=== PATIENT | male | born 1960 | race Caucasian/White ===

== ENCOUNTER 2017-07-08 11:55 | Outpatient (CLI) | payer MEDICAID ==
[~2017-07-08 11:55] MED LIST: BACTRIM DS 8001 TA1 PO; DAPTOMYCIN500 MG IV; LEVAQUIN 750 M750 MG PO; MEDROL 4MG. DOSE4 MG PO; NORCO 325 MG-51 TAB PO; TESSALON PERLE200 MG PO; TRAMADOL 50MG T50 MG PO
[2017-07-08] MEDS ORDERED: NOMEDS XX (13:20)
== END 2017-07-08 12:35 | disposition home or self-care (01) ==
LOC: COP 11:55
DX: L02.416 Cutaneous abscess of left lower limb (principal)
CPT/HCPCS: G0463

== ENCOUNTER 2017-07-15 07:05 | Inpatient (IN) | payer MEDICAID ==
[~2017-07-15] VITALS: Ht 175.3 cm; Wt 81.6 kg
[~2017-07-15 07:05] MED LIST changes: +NOMEDS XX
[2017-07-15 07:16] VITALS: BP 157/99
--- OUTSIDE RECORDS SUMMARY | 2017-07-15 07:24 | External Medical Summary Rpt ---
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 [facility] VIRUS INC INC IAADI 21074 ANA P[facility] INFFLUENZ 3 [facility] A A VIRUS INC INC DRUG SCR G0434 DEWE[facility] HAM DEWEY HAM NOT 2 CHROMATOG RAPHIC; ANY NUMBER PT ENC DRUG SCR G0434 DEWEY HAM DEWEY HAM NOT 2 CHROMATOG RAPHIC; ANY NUMBER PT ENC RADEX 91120 [place] JIN HAND 2 MEDICAL EVA MINIMUM 3 SERV VIEWS FOUNDATIO RADEX 55605 [place] IJN WRIST 2 MEDICAL EVA COMPLETE SERV MINIMUM 3 FOUNDATIO VIEWS INJECTION J3301 [place] SCO 2 MEDICAL TRIAMCINO SERV LONE FOUNDATIO ACETONIDE NOS 10 MG RADIOLOGI 31049 [facility] C EXAM 2 [facility] COMPL MINIMUM 3 VIEWS RADEX 76655 [facility] ANKLE 2 Y Y COMPLETE HOSPITAL HOSPITAL MINIMUM 3 VIEWS MANUAL 44083 [place] THERAPY 2 TQS 1/> CHIROPRAC CHIROPRAC REGIONS TIC CENTE TIC CENTE EACH 15 MINUTES CHIROPRAC 00705 [place] TIC 2 MANIPULAT CHIROPRAC CHIROPRAC BEATRIZ TX TIC CENTE TIC CENTE SPINAL 3-4 REGIONS APPL 29217 [place] MODALITY 2 1/> AREAS CHIROPRAC CHIROPRAC TRACTION TIC CENTE TIC CENTE MECHANICA L APPL 50989 [place] MODALITY 2 1/> AREAS CHIROPRAC CHIROPRAC ELEC TIC CENTE TIC CENTE STIMJ UNATTENDE D THERAPEUT 07639 [place] IC PX 1/> 2 AREAS CHIROPRAC CHIROPRAC EACH 15 TIC CENTE TIC CENTE MIN EXERCISES THERAPEUT 72928 [place] IC PX 1/> 2 AREAS CHIROPRAC CHIROPRAC EACH 15 TIC CENTE TIC CENTE MIN EXERCISES APPL 89946 [place] MODALITY 2 1/> AREAS CHIROPRAC CHIROPRAC ELEC TIC CENTE TIC CENTE STIMJ UNATTENDE D CHIROPRAC 96178 [place] TIC 2 MANIPULAT CHIROPRAC CHIROPRAC BEATRIZ TX TIC CENTE TIC CENTE SPINAL 1-2 REGIONS APPL 08777 [place] MODALITY 2 1/> AREAS CHIROPRAC CHIROPRAC TRACTION TIC CENTE TIC CENTE MECHANICA L APPL 45083 [place] MODALITY 2 1/> AREAS CHIROPRAC CHIROPRAC TRACTION TIC CENTE TIC CENTE MECHANICA L CHIROPRAC 18579 [place] TIC 2 MANIPULAT CHIROPRAC CHIROPRAC BEATRIZ TX TIC CENTE TIC CENTE SPINAL 1-2 REGIONS CHIROPRAC 73746 [place] TIC 2 MANIPLTV CHIROPRAC CHIROPRAC TX TIC CENTE TIC CENTE EXTRASPIN AL 1/> REGION APPL 74489 [place] MODALITY 2 1/> AREAS CHIROPRAC CHIROPRAC ELEC TIC CENTE TIC CENTE STIMJ UNATTENDE D THERAPEUT 37811 [place] IC PX 1/> 2 AREAS CHIROPRAC CHIROPRAC EACH 15 TIC CENTE TIC CENTE MIN EXERCISES INJECTION [id number] [place] SCO 2 MEDICAL TRIAMCINO SERV LONE FOUNDATIO ACETONIDE NOS 10 MG ARTHROCEN 24134 DAVE DORSEYIS 2 MEDICAL ASPIR&/IN SERV J INTERM FOUNDATIO JT/BURS W/O US APPL 89354 [place] MODALITY 2 1/> AREAS CHIROPRAC CHIROPRAC TRACTION TIC CENTE TIC CENTE MECHANICA L APPL 92280 [place] MODALITY 2 1/> AREAS CHIROPRAC CHIROPRAC ELEC TIC CENTE TIC CENTE STIMJ UNATTENDE D CHIROPRAC 19387 [place] TIC 2 MANIPLTV CHIROPRAC CHIROPRAC TX TIC CENTE TIC CENTE EXTRASPIN AL 1/> REGION CHIROPRAC 13637 [place] TIC 2 MANIPULAT CHIROPRAC CHIROPRAC BEATRIZ TX TIC CENTE TIC CENTE SPINAL 1-2 REGIONS THERAPEUT 63043 [place] IC PX 1/> 2 AREAS CHIROPRAC CHIROPRAC EACH 15 [place] [address] [place] 1/> AREAS 2 EACH 15 CHIROPRAC CHIROPRAC MIN TIC CENTE TIC CENTE NEUROMUSC REEDUCA THERAPEUT 91154 [place] IC PX 1/> 2 AREAS CHIROPRAC CHIROPRAC EACH 15 TIC CENTE TIC CENTE MIN EXERCISES CHIROPRAC 20369 [place] TIC 2 MANIPLTV CHIROPRAC CHIROPRAC TX TIC CENTE TIC CENTE EXTRASPIN AL 1/> REGION APPL 22088 [place] MODALITY 2 1/> AREAS CHIROPRAC CHIROPRAC ELEC TIC CENTE TIC CENTE STIMJ UNATTENDE D APPL 49362 [place] MODALITY 2 1/> AREAS CHIROPRAC CHIROPRAC TRACTION TIC CENTE TIC CENTE MECHANICA L CHIROPRAC 21178 [place] TIC 2 MANIPULAT CHIROPRAC CHIROPRAC BEATRIZ TX TIC CENTE TIC CENTE SPINAL 3-4 REGIONS APPLICATI 11690 [place] ON 2 MODALITY CHIROPRAC CHIROPRAC 1/> AREAS TIC CENTE TIC CENTE HOT/COLD PACKS APPLICATI 55475 [place] BROWNLE[place] ON 2 MODALITY CHIROPRAC CHIROPRAC 1/> AREAS TIC CENTE TIC CENTE HOT/COLD PACKS CHIROPRAC 80990 [place] TIC 2 MANIPULAT CHIROPRAC CHIROPRAC BEATRIZ TX TIC CENTE TIC CENTE SPINAL 3-4 REGIONS APPL 58838 [place] MODALITY 2 1/> AREAS CHIROPRAC CHIROPRAC TRACTION TIC CENTE TIC CENTE MECHANICA L APPL 49646 [place] MODALITY 2 1/> AREAS CHIROPRAC CHIROPRAC ELEC TIC CENTE TIC CENTE STIMJ UNATTENDE D CHIROPRAC 32218 [place] TIC 2 MANIPLTV CHIROPRAC CHIROPRAC TX TIC CENTE TIC CENTE EXTRASPIN AL 1/> REGION THERAPEUT 67765 [place] IC PX 1/> 2 AREAS CHIROPRAC CHIROPRAC EACH 15 TIC CENTE TIC CENTE MIN EXERCISES THERAPEUT 03222 [place] CHERRY DYLON IC PX 1/> 2 AREAS CHIROPRAC EACH 15 TIC CENTE MIN EXERCISES APPL 95076 [place] CHERRY DYLON MODALITY 2 1/> AREAS CHIROPRAC ELEC TIC CENTE STIMJ UNATTENDE D CHIROPRAC 43710 [place] CHERRY DYLON TIC 2 MANIPLTV CHIROPRAC TX TIC CENTE EXTRASPIN AL 1/> REGION APPL 99178 [place] CHERRY DYLON MODALITY 2 1/> AREAS CHIROPRAC TRACTION TIC CENTE MECHANICA L CHIROPRAC 97475 [place] CHERRY DYLON TIC 2 MANIPULAT CHIROPRAC BEATRIZ TX TIC CENTE SPINAL 3-4 REGIONS ARTHROCEN 40183 DAVE DORSEYIS 2 MEDICAL ASPIR&/IN SERV J INTERM FOUNDATIO JT/BURS N W/O US APPL 57655 ANA PEREZ MODALITY 2 [facility] 1/> AREAS INC INC IONTOPHOR ESIS EA 15 MIN THERAPEUT 70665 ANA PEREZ IC PX 1/> 2 [facility] AREAS INC INC EACH 15 MIN EXERCISES THERAPEUT 12136 ANA PEREZ IC PX 1/> 2 [facility] AREAS INC INC EACH 15 MIN EXERCISES APPL 55223 ANA PEREZ MODALITY 2 [facility] 1/> AREAS INC INC IONTOPHOR ESIS EA 15 MIN APPL 31420 ANA PEREZ MODALITY 2 [facility]OS[facility] 1/> AREAS INC INC IONTOPHOR ESIS EA 15 MIN THERAPEUT 20828 ANA PEREZ IC PX 1/> 2 [facility]OS[facility]OS[facility] AREAS INC INC EACH 15 MIN EXERCISES APPL 23140 ANA PEREZ MODALITY 2 [facility] 1/> AREAS INC INC ULTRASOUN D EA 15 MIN PHYSICAL 93960 ANA PEREZ THERAPY 2 [facility]OS[facility] EVALUATIO INC INC N APPLICATI 32280 NALLELY COLÓN ON 1 KHOA MODALITY CHIROPRAC 1/> AREAS TIC CENTE HOT/COLD PACKS CHIROPRAC 92184 NALLELY COLÓN TIC 1 KHOA MANIPULAT CHIROPRAC BEATRIZ TX TIC CENTE SPINAL 3-4 REGIONS APPL 99954 [place] KATARZY[place] MODALITY 1 KHOA 1/> AREAS CHIROPRAC TRACTION TIC CENTE MECHANICA L CHIROPRAC 14680 NALLELY COLÓN TIC 1 KHOA MANIPLTV CHIROPRAC TX TIC CENTE EXTRASPIN AL > REGION APPL 63917 NALLELY COLÓN MODALITY 1 KHOA 1/> AREAS CHIROPRAC ELEC TIC CENTE STIMJ UNATTENDE D APPL 51539 [place] KATARZY[place] MODALITY 1 KHOA 1/> AREAS CHIROPRAC ELEC TIC CENTE STIMJ UNATTENDE D CHIROPRAC 57119 [place] COLÓN TIC 1 KHOA MANIPLTV CHIROPRAC TX TIC CENTE EXTRASPIN AL 1> REGION APPL 71998 [place]RI[place] KATARZYNA MODALITY 1 KHOA 1/> AREAS CHIROPRAC TRACTION TIC CENTE MECHANICA L CHIROPRAC 31276 NALLELY COLÓN TIC 1 KHOA MANIPULAT CHIROPRAC BEATRIZ TX TIC CENTE SPINAL 3-4 REGIONS APPLICATI 23621 NALLELY COLÓN ON 1 [place] MODALITY CHIROPRAC 1/> AREAS TIC CENTE HOT/COLD PACKS NEUROPLAS 52419 [place] [facility] TY 1 MEDICAL MAGAN &/TRANSPO SERV S MEDIAN FOUNDATIO NRV CARPAL TUNNE INJECTION [place] CHRISTEL 1 MEDICAL MAGAN THERAPEUT SERV IC CARPAL FOUNDATIO TUNNEL CHIROPRAC 86031 NALLELY COLÓN TIC 1 KHOA MANIPLTV CHIROPRAC TX TIC CENTE EXTRASPIN AL > REGION APPL 50280 NALLELY COLÓN MODALITY 1 KHOA 1/> AREAS CHIROPRAC ELEC TIC CENTE STIMJ UNATTENDE D APPLICATI 02929 NALLELY COLÓN ON 1 [place] MODALITY CHIROPRAC 1/> AREAS TIC CENTE HOT/COLD PACKS CHIROPRAC 48557 NALLELY COLÓN TIC 1 KHOA MANIPULAT CHIROPRAC BEATRIZ TX TIC CENTE SPINAL 3-4 REGIONS APPL 49711 NALLELY COLÓN MODALITY 1 KHOA 1/> AREAS CHIROPRAC TRACTION TIC CENTE MECHANICA L NRV CNDJ 45225 [place] [facility] AMPLT&LAT 1 MEDICAL ENCY EA SERV NRV MOTOR FOUNDATIO W/F-WAVE STD NRV CNDJ 31661 [place] [facility] AMPLITUDE 1 MEDICAL & SERV LATENCY FOUNDATIO EACH NERVE SENSORY NDL EMG 1 53232 [place] [facility] XTR W/WO 1 MEDICAL RELATED SERV PARASPINA FOUNDATIO L AREAS APPLICATI 03718 NALLELY COLÓN ON 1 [place] MODALITY CHIROPRAC 1/> AREAS TIC CENTE HOT/COLD PACKS CHIROPRAC 36230 NALLELY COLÓN TIC 1 [place] MANIPULAT CHIROPRAC BEATRIZ TX TIC CENTE SPINAL 3-4 REGIONS APPL 58064 NALLELY COLÓN MODALITY 1 KHOA 1/> AREAS CHIROPRAC ELEC TIC CENTE STIMJ UNATTENDE D APPL 37788 NALLELY COLÓN MODALITY 1 KHOA 1/> AREAS CHIROPRAC TRACTION TIC CENTE MECHANICA L CHIROPRAC 31467 NALLELY COLÓN TIC 1 KHOA MANIPLTV CHIROPRAC TX TIC CENTE EXTRASPIN AL 1/> REGION APPL 85691 NALLELY COLÓN MODALITY 1 KHOA 1/> AREAS CHIROPRAC ELEC TIC CENTE STIMJ UNATTENDE D CHIROPRAC 41489 NALLELY COLÓN TIC 1 KHOA MANIPLTV CHIROPRAC TX TIC CENTE EXTRASPIN AL 1/> REGION CHIROPRAC 86075 NALLELY COLÓN TIC 1 KHOA MANIPULAT CHIROPRAC BEATRIZ TX TIC CENTE SPINAL 3-4 REGIONS APPL 41062 NALLELY COLÓN MODALITY 1 KHOA 1/> AREAS CHIROPRAC TRACTION TIC CENTE MECHANICA L APPLICATI 49629 NALLELY COLÓN ON 1 [place] MODALITY CHIROPRAC 1/> AREAS TIC CENTE HOT/COLD PACKS MANUAL 29120 NALLELY COLÓN THERAPY 1 KHOA TQS 1/> CHIROPRAC REGIONS TIC CENTE EACH 15 MINUTES ARTHROCEN 72523 [place] DANIEL RAMIREZ TESIS 1 MEDICAL ASPIR&/IN SERV J INTERM FOUNDATIO JT/BURS W/O US INJECTION [id number] [place] DANIEL SCO 1 MEDICAL TRIAMCINO SERV LONE FOUNDATIO ACETONIDE NOS 10 [place] [address] [facility] UPPER 1 Y Y EXTREMITY [facility] W/CONTRAS T MATRL INJECTION 14646 [facility] SHOULDER 1 Y Y [facility] ARTHROG PHY/ CT/MRI ARTHG RADEX 45979 [facility]&I APPLICATI 19082 NALLELY COLÓN ON 1 [place] MODALITY CHIROPRAC 1/> AREAS TIC CENTE HOT/COLD PACKS CHIROPRAC 07351 NALLELY COLÓN TIC 1 KHOA MANIPULAT CHIROPRAC BEATRIZ TX TIC CENTE SPINAL 3-4 REGIONS CHIROPRAC 57621 NALLELY COLÓN TIC 1 KHOA MANIPLTV CHIROPRAC TX TIC CENTE EXTRASPIN AL 1/> REGION APPL 76755 NALLELY COLÓN MODALITY 1 KHOA 1/> AREAS CHIROPRAC TRACTION TIC CENTE MECHANICA L APPL 74578 NALLELY COLÓN MODALITY 1 HKOA 1/> AREAS CHIROPRAC ELEC TIC CENTE STIMJ UNATTENDE D APPL 22488 NALLELY COLÓN MODALITY 1 KHOA 1/> AREAS CHIROPRAC ELEC TIC CENTE STIMJ UNATTENDE D APPL 28717 NALLELY COLÓN MODALITY 1 KHOA 1/> AREAS CHIROPRAC TRACTION TIC CENTE MECHANICA L CHIROPRAC 84812 NALLELY COLÓN TIC 1 KHOA MANIPLTV CHIROPRAC TX TIC CENTE EXTRASPIN AL 1/> REGION CHIROPRAC 46979 NALLELY COLÓN TIC 1 KHOA MANIPULAT CHIROPRAC BEATRIZ TX TIC CENTE SPINAL 3-4 REGIONS APPLICATI 86993 NALLELY COLÓN ON 1 [place] MODALITY CHIROPRAC 1/> AREAS TIC CENTE HOT/COLD PACKS APPLICATI 01854 NALLELY COLÓN ON 1 KHOA MODALITY CHIROPRAC 1/> AREAS TIC CENTE HOT/COLD PACKS CHIROPRAC 83149 NALLELY COLÓN TIC 1 KHOA MANIPULAT CHIROPRAC BEATRIZ TX TIC CENTE SPINAL 3-4 REGIONS CHIROPRAC 56921 NALLELY COLÓN TIC 1 KHOA MANIPLTV CHIROPRAC TX TIC CENTE EXTRASPIN AL 1/> REGION APPL 40435 NALLELY COLÓN MODALITY 1 KHOA 1/> AREAS CHIROPRAC TRACTION TIC CENTE MECHANICA L APPL 02364 NALLELY COLÓN MODALITY 1 KHOA 1/> AREAS CHIROPRAC ELEC TIC CENTE STIMJ UNATTENDE D APPL 53609 NALLELY COLÓN MODALITY 1 KHOA 1/> AREAS CHIROPRAC ELEC TIC CENTE STIMJ UNATTENDE D APPL 92690 NALLELY COLÓN MODALITY 1 KHOA 1/> AREAS CHIROPRAC TRACTION TIC CENTE MECHANICA L CHIROPRAC 79149 NALLELY COLÓN TIC 1 KHOA MANIPLTV CHIROPRAC TX TIC CENTE EXTRASPIN AL 1/> REGION CHIROPRAC 32436 NALLELY COLÓN TIC 1 KHOA MANIPULAT CHIROPRAC BEATRIZ TX TIC CENTE SPINAL 3-4 REGIONS APPLICATI 88579 NALLELY COLÓN ON 1 KHOA MODALITY CHIROPRAC 1/> AREAS TIC CENTE HOT/COLD PACKS RADEX 91959 [place] [facility] ANKLE 1 MEDICAL GERSON COMPLETE SERV MINIMUM 3 FOUNDATIO VIEWS RADIOLOGI 19061 [place] [facility] C 1 MEDICAL GERSON EXAMINATI SERV ON PELVIS FOUNDATIO 1/2 VIEWS CHIROPRAC 37293 NALLELY COLÓN TIC 1 KHOA MANIPLTV CHIROPRAC TX TIC CENTE EXTRASPIN AL 1/> REGION APPL 72482 NALLELY COLÓN MODALITY 1 KHOA 1/> AREAS CHIROPRAC TRACTION TIC CENTE MECHANICA L APPL 57664 NALLELY COLÓN MODALITY 1 KHOA 1/> AREAS CHIROPRAC ELEC TIC CENTE STIMJ UNATTENDE D APPLICATI 07728 NALLELY COLÓN ON 1 KHOA MODALITY CHIROPRAC 1/> AREAS TIC CENTE HOT/COLD PACKS CHIROPRAC 23387 NALLELY COLÓN TIC 1 KHOA MANIPULAT CHIROPRAC BEATRIZ TX TIC CENTE SPINAL 3-[place] [address] FARRAR FARRAR LIP 1 LUIS MANUEL LUIS MANUEL CHIROPRAC 08649 NALLELY COLÓN TIC 1 [place] MANIPULAT CHIROPRAC BEATRIZ TX TIC CENTE SPINAL 3-4 REGIONS APPL 23962 NALLELY BROWNING MODALITY 1 1/> AREAS CHIROPRAC CHIROPRAC TRACTION TIC CENTE TIC CENTE MECHANICA L APPL 37740 NALLELY COLÓN MODALITY 1 KHOA 1/> AREAS CHIROPRAC ELEC TIC CENTE STIMJ UNATTENDE D CHIROPRAC 07488 NALLELY COLÓN TIC 1 KHOA MANIPLTV CHIROPRAC TX TIC CENTE EXTRASPIN AL 1/> REGION CHIROPRAC 66269 NALLELY COLÓN TIC 1 KHOA MANIPLTV CHIROPRAC TX TIC CENTE EXTRASPIN AL 1/> REGION APPL 81961 NALLELY COLÓN MODALITY 1 KHOA 1/> AREAS CHIROPRAC ELEC TIC CENTE STIMJ UNATTENDE D APPL 22893 NALLELY COLÓN MODALITY 1 KHOA 1/> AREAS CHIROPRAC TRACTION TIC CENTE MECHANICA L CHIROPRAC 53703 NALLELY COLÓN TIC 1 KHOA MANIPULAT CHIROPRAC BEATRIZ TX TIC CENTE SPINAL 3-4 REGIONS APPLICATI 48252 NALLELY COLÓN ON 1 KHOA MODALITY CHIROPRAC 1/> AREAS TIC CENTE HOT/COLD PACKS APPLICATI 70231 NALLELY COLÓN ON 1 KHOA MODALITY CHIROPRAC 1/> AREAS TIC CENTE HOT/COLD PACKS CHIROPRAC 59105 NALLELY COLÓN TIC 1 KHOA MANIPULAT CHIROPRAC BEATRIZ TX TIC CENTE SPINAL 3-4 REGIONS APPL 26508 NALLELY COLÓN MODALITY 1 KHOA 1/> AREAS CHIROPRAC TRACTION TIC CENTE MECHANICA L CHIROPRAC 35924 NALLELY COLÓN TIC 1 KHOA MANIPLTV CHIROPRAC TX TIC CENTE EXTRASPIN AL 1/> REGION APPL 46177 NALLELY COLÓN MODALITY 1 KHOA 1/> AREAS CHIROPRAC ELEC TIC CENTE STIMJ UNATTENDE D CHIROPRAC 39488 NALLELY COLÓN TIC 1 KHOA MANIPLTV CHIROPRAC TX TIC CENTE EXTRASPIN AL 1/> REGION APPL 60343 NALLELY COLÓN MODALITY 1 KHOA 1/> AREAS CHIROPRAC ELEC TIC CENTE STIMJ UNATTENDE D APPL 52028 NALLELY COLÓN MODALITY 1 KHOA 1/> AREAS CHIROPRAC TRACTION TIC CENTE MECHANICA L CHIROPRAC 39815 NALLELY COLÓN TIC 1 KHOA MANIPULAT CHIROPRAC BEATRIZ TX TIC CENTE SPINAL 3-4 REGIONS APPLICATI 60339 NALLELY COLÓN ON 1 KHOA MODALITY CHIROPRAC 1/> AREAS TIC CENTE HOT/COLD PACKS APPLICATI 15640 NALLELY COLÓN ON 1 KHOA MODALITY CHIROPRAC 1/> AREAS TIC CENTE HOT/COLD PACKS CHIROPRAC 45636 NALLELY COLÓN TIC 1 KHOA MANIPULAT CHIROPRAC BEATRIZ TX TIC CENTE SPINAL 3-4 REGIONS APPL 90261 NALLELY COLÓN MODALITY 1 KHOA 1/> AREAS CHIROPRAC TRACTION TIC CENTE MECHANICA L APPL 74759 NALLELY COLÓN MODALITY 1 KHOA 1/> AREAS CHIROPRAC ELEC TIC CENTE STIMJ UNATTENDE D CHIROPRAC 86200 NALLELY COLÓN TIC 1 KHOA MANIPLTV CHIROPRAC TX TIC CENTE EXTRASPIN AL 1/> REGION CHIROPRAC 45155 NALLELY COLÓN TIC 1 KHOA MANIPLTV CHIROPRAC TX TIC CENTE EXTRASPIN AL 1/> REGION APPL 28014 NALLELY COLÓN MODALITY 1 KHOA 1/> AREAS CHIROPRAC TRACTION TIC CENTE MECHANICA L APPL 72159 NALLELY COLÓN MODALITY 1 KHOA 1/> AREAS CHIROPRAC ELEC TIC CENTE STIMJ UNATTENDE D CHIROPRAC 42409 NALLELY COLÓN TIC 1 KHOA MANIPULAT CHIROPRAC BEATRIZ TX TIC CENTE SPINAL 3-4 REGIONS APPLICATI 94391 NALLELY COLÓN ON 1 KHOA MODALITY CHIROPRAC 1/> AREAS TIC CENTE HOT/COLD PACKS APPLICATI 90494 NALLELY COLÓN ON 1 KHOA MODALITY CHIROPRAC 1/> AREAS TIC CENTE HOT/COLD PACKS APPL 98571 NALLELY COLÓN MODALITY 1 KHOA 1/> AREAS CHIROPRAC TRACTION TIC CENTE MECHANICA L CHIROPRAC 12384 NALLELY COLÓN TIC 1 KHOA MANIPULAT CHIROPRAC BEATRIZ TX TIC CENTE SPINAL 3-4 REGIONS CHIROPRAC 42355 NALLELY COLÓN TIC 1 KHOA MANIPLTV CHIROPRAC TX TIC CENTE EXTRASPIN AL 1/> REGION APPL 22786 NALLELY COLÓN MODALITY 1 KHOA 1/> AREAS CHIROPRAC ELEC TIC CENTE STIMJ UNATTENDE D CHIROPRAC 28482 NALLELY COLÓN TIC 1 KHOA MANIPLTV CHIROPRAC TX TIC CENTE EXTRASPIN AL 1/> REGION APPL 75013 NALLELY COLÓN MODALITY 1 KHOA 1/> AREAS CHIROPRAC ELEC TIC CENTE STIMJ UNATTENDE D APPL 06316 NALLELY COLÓN MODALITY 1 KHOA 1/> AREAS CHIROPRAC TRACTION TIC CENTE MECHANICA L CHIROPRAC 16373 NALLELY COLÓN TIC 1 KHOA MANIPULAT CHIROPRAC BEATRIZ TX TIC CENTE SPINAL 3-4 REGIONS APPLICATI 99224 NALLELY COLÓN ON 1 KHOA MODALITY CHIROPRAC 1/> AREAS TIC CENTE HOT/COLD PACKS APPLICATI 99106 NALLELY COLÓN ON 1 KHOA MODALITY CHIROPRAC 1/> AREAS TIC CENTE HOT/COLD PACKS APPL 25353 NALLELY COLÓN MODALITY 1 KHOA 1/> AREAS CHIROPRAC TRACTION TIC CENTE MECHANICA L CHIROPRAC 62945 NALLELY COLÓN TIC 1 KHOA MANIPULAT CHIROPRAC BEATRIZ TX TIC CENTE SPINAL 3-4 REGIONS APPL 50963 NALLELY COLÓN MODALITY 1 KHOA 1/> AREAS CHIROPRAC ELEC TIC CENTE STIMJ UNATTENDE D CHIROPRAC 43028 NALLELY COLÓN TIC 1 KHOA MANIPLTV CHIROPRAC TX TIC CENTE EXTRASPIN AL 1/> REGION CHIROPRAC 43114 NALLELY COLÓN TIC 1 KHOA MANIPLTV CHIROPRAC TX TIC CENTE EXTRASPIN AL 1/> REGION APPL 82080 NALLELY BROWNING MODALITY 1 1/> AREAS CHIROPRAC CHIROPRAC ELEC TIC CENTE TIC CENTE STIMJ UNATTENDE D CHIROPRAC 59664 NALLELY COLÓN TIC 1 KHOA MANIPULAT CHIROPRAC BEATRIZ TX TIC CENTE SPINAL 3-4 REGIONS APPLICATI 88406 NALLELY COLÓN ON 1 KHOA MODALITY CHIROPRAC 1/> AREAS TIC CENTE HOT/COLD PACKS APPLICATI 64075 NALLELY COLÓN ON 1 KHOA MODALITY CHIROPRAC 1/> AREAS TIC CENTE HOT/COLD PACKS CHIROPRAC 67915 NALLELY COLÓN TIC 1 KHOA MANIPULAT CHIROPRAC BEATRIZ TX TIC CENTE SPINAL 3-4 REGIONS APPL 88025 NALLELY COLÓN MODALITY 1 KHOA 1/> AREAS CHIROPRAC TRACTION TIC CENTE MECHANICA L APPL 40512 NALLELY COLÓN MODALITY 1 KHOA 1/> AREAS CHIROPRAC ELEC TIC CENTE STIMJ UNATTENDE D CHIROPRAC 60113 NALLELY COLÓN TIC 1 KHOA MANIPLTV CHIROPRAC TX TIC CENTE EXTRASPIN AL 1/> REGION CHIROPRAC 48856 NALLELY COLÓN TIC 1 KHOA MANIPLTV CHIROPRAC TX TIC CENTE EXTRASPIN AL 1/> REGION APPL 88243 NALLELY COLÓN MODALITY 1 KHOA 1/> AREAS CHIROPRAC ELEC TIC CENTE STIMJ UNATTENDE D APPL 61487 NALLELY COLÓN MODALITY 1 KHOA 1/> AREAS CHIROPRAC TRACTION TIC CENTE MECHANICA L CHIROPRAC 72879 NALLELY COLÓN TIC 1 KHOA MANIPULAT CHIROPRAC BEATRIZ TX TIC CENTE SPINAL 3-4 REGIONS APPLICATI 59679 NALLELY COLÓN ON 1 KHOA MODALITY CHIROPRAC 1/> AREAS TIC CENTE HOT/COLD PACKS CHIROPRAC 36120 NALLELY COLÓN TIC 1 KHOA MANIPULAT CHIROPRAC BEATRIZ TX TIC CENTE SPINAL 3-4 REGIONS APPL 37057 NALLELY BROWNING MODALITY 1 1/> AREAS CHIROPRAC CHIROPRAC TRACTION TIC CENTE TIC CENTE MECHANICA L APPL 25404 NALLELY COLÓN MODALITY 1 KHOA 1/> AREAS CHIROPRAC ELEC TIC CENTE STIMJ UNATTENDE D CHIROPRAC 32048 NALLELY COLÓN TIC 1 KHOA MANIPLTV CHIROPRAC TX TIC CENTE EXTRASPIN AL 1/> REGION CHIROPRAC 73067 NALLELY COLÓN TIC 1 KHOA MANIPLTV CHIROPRAC TX TIC CENTE EXTRASPIN AL 1/> REGION APPL 64721 NALLELY COLÓN MODALITY 1 KHOA 1/> AREAS CHIROPRAC ELEC TIC CENTE STIMJ UNATTENDE D APPL 34215 NALLELY COLÓN MODALITY 1 KHOA 1/> AREAS CHIROPRAC TRACTION TIC CENTE MECHANICA L CHIROPRAC 50465 NALLELY COLÓN TIC 1 KHOA MANIPULAT CHIROPRAC BEATRIZ TX TIC CENTE SPINAL 3-4 REGIONS APPLICATI 97447 NALLELY COLÓN ON 1 KHOA MODALITY CHIROPRAC 1/> AREAS TIC CENTE HOT/COLD PACKS APPLICATI 20812 NALLELY COLÓN ON 1 KHOA MODALITY CHIROPRAC 1/> AREAS TIC CENTE HOT/COLD PACKS CHIROPRAC 45590 NALLELY COLÓN TIC 1 KHOA MANIPULAT CHIROPRAC BEATRIZ TX TIC CENTE SPINAL 3-4 REGIONS APPL 18408 NALLELY COLÓN MODALITY 1 KHOA 1/> AREAS CHIROPRAC TRACTION TIC CENTE MECHANICA L APPL 34740 NALLELY COLÓN MODALITY 1 KHOA 1/> AREAS CHIROPRAC ELEC TIC CENTE STIMJ UNATTENDE D CHIROPRAC 88480 NALLELY COLÓN TIC 1 KHOA MANIPLTV CHIROPRAC TX TIC CENTE EXTRASPIN AL 1/> REGION RADEX 27717 NALLELY COLÓN SPINE 1 KHOA LUMBOSACR CHIROPRAC AL 2/3 TIC CENTE VIEWS THERAPEUT 26151 ANA PEREZ IC PX 1/> 1 [facility] EACH 15 MIN EXERCISES THERAPEUT 52680 ANA FUENTESON IC PX 1/> 1 [facility] INC EACH 15 MIN EXERCISES THERAPEUT 27614 ANA FUENTESON IC PX 1/> 1 [facility] INC EACH 15 MIN EXERCISES THERAPEUT 65656 NAA FUENTESON IC PX 1/> 1 [facility] INC EACH 15 MIN EXERCISES PHYSICAL 99294 ANA PEREZ THERAPY 1 [facility] EVALUATIO INC INC N RADEX 72299 [place] [facility] WRIST 0 MEDICAL GERSON COMPLETE SERV MINIMUM 3 FOUNDATIO VIEWS RADIOLOGI 91879 [place] [facility] C EXAM 0 MEDICAL GERSON PELVIS SERV COMPL FOUNDATIO MINIMUM 3 VIEWS RADEX 37527 [place] [facility] ANKLE 0 MEDICAL GERSON COMPLETE SERV MINIMUM 3 FOUNDATIO VIEWS STANDARD K0001 [facility] WHEELCHAI 0 HOME HOME R CARE, INC CARE, INC MNL E0971 [facility]MI[facility] WHEELCHAI 0 HOME HOME R CARE, INC CARE, INC ACCESSORY ANTI-TIPP ING DEVC EACH MANUAL E0961 [facility] WHEELCHAI 0 HOME HOME R ACCESS CARE, INC CARE, INC WHEEL LOCK BRAKE EXT EA RADEX 08277 [facility] MINIMUM 3 VIEWS RADIOLOGI 77509 [facility] COMPL MINIMUM 3 VIEWS RADEX 45829 [facility] HOSPITAL MINIMUM 3 VIEWS STANDARD K0001 [facility] PREMIER WHEELCHAI 0 HOME HOME R CARE, INC CARE, INC MNL E0971 PREMIER PREMIER WHEELCHAI 0 HOME HOME R CARE, INC CARE, INC ACCESSORY ANTI-TIPP ING DEVC EACH MANUAL E0961 [facility] PREMIER WHEELCHAI 0 HOME HOME R ACCESS CARE, INC CARE, INC WHEEL LOCK BRAKE EXT EA RADEX 86713 [place] WRIST 0 MEDICAL GERSON COMPLETE SERV MINIMUM 3 FOUNDATIO VIEWS RADIOLOGI 23009 [place] C EXAM 0 MEDICAL GERSON PELVIS SERV COMPL FOUNDATIO MINIMUM 3 VIEWS N-INVAS 89338 [place] AYOOB AND PHYSIOLOG 0 MEDICAL IC STD SERV XTR VEINS FOUNDATIO COMPL BI STD DUP-SCAN 56911 [facility] XTR VEINS 0 Y Y [facility] L/LIMITED STUDY MNL E0971 PREMIER PREMIER WHEELCHAI 0 HOME HOME R CARE, INC CARE, INC ACCESSORY ANTI-TIPP ING DEVC EACH MANUAL E0961 PREMIER PREMIER WHEELCHAI 0 HOME HOME R ACCESS CARE, INC CARE, INC WHEEL LOCK BRAKE EXT EA STANDARD K0001 PREMIER PREMIER WHEELCHAI 0 HOME HOME R CARE, INC CARE, INC [place] [facility] [address] [place] [facility] DISCHARGE 0 MEDICAL GINGER DAY SERV MANAGEMEN FOUNDATIO T 30 MIN/< SBSQ 02875 [place] [address] MEDICAL NAN CARE/DAY SERV 25 FOUNDATIO MINUTES SBSQ 78882 [facility] 0 MEDICAL R MINDI CARE/DAY SERV 25 FOUNDATIO MINUTES DUP-SCAN 03066 ALPHONSO ALPHONSO XTR VEINS 0 KESHAWN KESHAWN COMPLETE BILATERAL STUDY SBSQ 76920 [facility] 0 MEDICAL R MINDI CARE/DAY SERV 25 FOUNDATIO MINUTES SBSQ 00567 [facility] 0 MEDICAL R MINDI CARE/DAY SERV 25 FOUNDATIO MINUTES RADEX 11954 [place] SH[facility] 0 MEDICAL JT 1 VIEW SERV FOUNDATIO SBSQ 88846 [facility] 0 MEDICAL R MINDI CARE/DAY SERV 25 FOUNDATIO MINUTES SBSQ 10154 [facility] 0 MEDICAL NAN CARE/DAY SERV 25 FOUNDATIO MINUTES SBSQ 26671 [facility] 0 MEDICAL NAN CARE/DAY SERV 25 FOUNDATIO MINUTES INITIAL 69061 [facility] 0 MEDICAL R MINDI CARE/DAY SERV 50 FOUNDATIO MINUTES GROUND [id number] MERCURYAM MERCURYAM MILEAGE 0 BULAN CE BULAN CE PER [facility] 11651 [place] [facility] 0 MEDICAL SAURAV DAY SERV MANAGEMEN FOUNDATIO T 30 MIN/< SBSQ [id number] [place] [facility] 0 MEDICAL SAURAV CARE/DAY SERV 15 FOUNDATIO MINUTES RADEX 99905 [place] [facility] 0 MEDICAL COMPLETE SERV MINIMUM 3 FOUNDATIO VIEWS SBSQ 91626 [facility] 0 MEDICAL SAURAV CARE/DAY SERV 15 FOUNDATIO MINUTES RADEX 25622 [place] [facility] WRIST 2 0 MEDICAL GERSON VIEWS SERV FOUNDATIO SBSQ 95606 [place] [facility] 0 MEDICAL SAURAV CARE/DAY SERV 15 FOUNDATIO MINUTES SBSQ 54922 [facility] 0 MEDICAL SAURAV CARE/DAY SERV 15 FOUNDATIO MINUTES RADEX 61514 [place] [facility] 0 MEDICAL COMPLETE SERV MINIMUM 2 FOUNDATIO VIEWS PERQ 36392 [place] [facility] SKELETAL 0 MEDICAL RAY FIXATION SERV PST FOUNDATIO PELVIC BONE FX&/DIS RADIOLOGI 85395 [place] [facility] SHORT C EXAM 0 MEDICAL PELVIS SERV COMPL FOUNDATIO MINIMUM 3 VIEWS ANESTHESI 83215 [place] JING A ON BONY 0 MEDICAL EUGEN E PELVIS SERV [place]OUNDATIO [place] PELVIS [address] [place] SHORT W/O 0 MEDICAL CONTRAST SERV MATERIAL FOUNDATIO OPTX ANT 69505 [place] PELVIC 0 [place] BONE SERV FX&/DISLC FOUNDATIO INT FIXJ IF PFR RADEX 69022 [place] SHORT SHOULDER 0 MEDICAL COMPLETE SERV MINIMUM 2 [place] VIEWS INITIAL 21988 [place] INPATIENT 0 MEDICAL LIZBETH CONSULT SERV NEW/ESTAB FOUNDATIO PT 20 MIN INITIAL 06326 [place] [facility] 0 MEDICAL CLARKE CARE/DAY SERV [place] [address] [place] DISTAL 0 MED[place]AY FIBULAR SERV FRACTURE FOUNDATIO LAT MALLEOLUS DBRDMT 06395 [place] FX&/DISLC 0 MEDICAL RAY SUBQ SERV T/M/F FOUNDATIO BONE ANES OPEN 15532 [place] PROC 0 MEDICAL PAUL BONES SERVICES LOWER LEG/ANKLE /FOOT [place]OS NJX 05351 [place] RETROGRAD 0 MEDICAL GERSON [place] [address] [place] ABDOMEN 0 MEDICAL BEBA W/CONTRAS SERV T FOUNDATIO MATERIAL URETHROCY 89359 [place] STOGRAPHY 0 MEDICAL GERSON SERV RETROGRAD FOUNDATIO E RS&I ECG 49434 [place] JORI C ROUTINE 0 MEDICAL ECG SERV W/LEAST FOUNDATIO 12 LDS I&R ONLY CT PELVIS 30332 [place] W/O & 0 MEDICAL BEBA W/CONTRAS SERV T FOUNDATIO MATERIAL RADIOLOGI 93976 [place] C 0 MEDICAL GERSON EXAMINATI SERV ON TIBIA FOUNDATIO & FIBULA 2 VIEWS RADEX 23610 [place] SHOULDER 0 MEDICAL GERSON COMPLETE SERV MINIMUM [address] LUMBAR 96555 [place] MUSE SPINE 0 MEDICAL DYLON W/O SERV CONTRAST FOUNDATIO MATERIAL RADIOLOGI 94498 [place] C 0 MEDICAL GERSON EXAMINATI SERV ON PELVIS FOUNDATIO 1/[address] [place] [address] [place] MUSE CERVICAL 0 MEDICAL DYLON SPINE W/O SERV CONTRAST [facility]OUNDATIO MATERIAL RADIOLOGI 17886 [place] C EXAM 0 MEDICAL GERSON PELVIS SERV COMPL FOUNDATIO MINIMUM 3 VIEWS RADIOLOGI 26573 [place] C 0 MEDICAL GERSON EXAMINATI SERV ON [place] [address] [place] MUSE THORACIC 0 MEDICAL DYLON SPINE W/O SERV CONTRAST FOUNDATIO MATERIAL RADEX 76639 [place] TRENT JAM ANKLE 0 MEDICAL COMPLETE SERV MINIMUM 3 [place]OUNDATIO VIEWS RADEX 22453 [place] FOOT 0 MEDICAL GERSON COMPLETE SERV MINIMUM 3 FOUNDATIO VIEWS AMB [id number] PETROLEUM PETROLEUM SERVICE 0 CONVNTION HELICOPTE HELICOPTE AIR SRVC RS INC RS INC TRANSPORT [address] Encounters Encounter Start End Date Code Location Performer Type Date OFFICE 03465 [place] OUTPATIEN 7 7 MEDICAL T VISIT SERV 15 FOUNDATIO MINUTES N OFFICE 48641 [place] OUTPAT[place] 6 6 MEDICAL T VISIT SERV 15 FOUNDATIO MINUTES N OFFICE 77754 [place] SCO OUTPATIEN 6 6 MEDICAL T VISIT SERV 15 FOUNDATIO MINUTES N OFFICE 56998 [place] SCO OUTPATIEN 6 6 MEDICAL T VISIT SERV 25 FOUNDATIO MINUTES N OFFICE 75143 [place] DANI[place] SCO OUTPATIEN 6 6 MEDICAL T VISIT SERV 15 FOUNDATIO MINUTES [facility] ANA - 6 6 MEM [facility] ANA - 6 6 [facility] ANA - 6 6 [facility] UNIVERSIT - 5 5 Y [facility] T OFFICE 76448 UNIVERSIT [facility] 5 5 Y T VISIT 5 [facility] UN[facility] - 5 5 Y [facility] T OFFICE 64177 SUNNI MOELLER [facility] [place] 5 5 NANCY NANCY T VISIT 15 [facility] OFFICE 96975 DAVE DANIEL SCO OUTPATIEN 5 5 MEDICAL T VISIT SERV 25 FOUNDATIO MINUTES N OFFICE 21828 [place] OUTPATIEN 5 5 MEDICAL T VISIT SERV 15 FOUNDATIO MINUTES N OFFICE 20974 DAVE DANIEL SCO OUTPATIEN 5 5 MEDICAL T VISIT SERV 25 FOUNDATIO MINUTES HOSPITAL UN[facility]ERSIT - 5 5 Y [facility] T OFFICE 62279 DAVE RAMIREZ OUTPATIEN 5 5 MEDICAL T VISIT SERV 15 FOUNDATIO MINUTES N OFFICE 45127 DAVE DANIEL RAMIREZ OUTPATIEN 5 5 MEDICAL T VISIT SERV 15 FOUNDATIO MINUTES N Emergency CLEMENTE Wynn MD (ER) 4 11:25 4 12:22 [facility] EMERGENCY 95365 NEAL PULIDO 4 4 EMERGENCY DEPARTMEN SERVICES T VISIT MODERATE SEVERITY OFFICE 76069 JULIANNEELIEL WHITAKERELIEL OUTPATIEN 4 4 NANCY NANCY T VISIT 40 MINUTES OFFICE 65185 DAVE RAMIREZ OUTPAULIEEN 3 3 MEDICAL T VISIT SERV 25 FOUNDATIO MINUTES N OFFICE 10878 DAVE RAMIREZ OUTCHRIS 3 3 MEDICAL T VISIT SERV 25 FOUNDATIO MINUTES HOSPITAL ANA - 3 3 [facility] OUTPATIEN INC T EMERGENCY 23579 ANA 3 3 [facility] DEPARTMEN INC T VISIT LOW/MODER SEVERITY EMERGENCY 44549 NEAL PHILIPPE 3 3 EMERGENCY DEPARTMEN SERVICES T VISIT MODERATE SEVERITY OFFICE 59750 DEWEY HAM DEWEY HAM OUTPATIEN 2 2 T VISIT 15 MINUTES OFFICE 36824 DEWEY WILTON DEWEY HAM OUTPATIEN 2 2 T NEW 45 MINUTES OFFICE 67077 SUNNI MOELLER OUTPATIEN 2 2 NANCY NANCY T VISIT 15 MINUTES HOSPITAL UNIVERSIT - 2 2 Y [facility] T OFFICE 65531 DAVE FRIENDPATIEN 2 2 MEDICAL MAGAN T VISIT SERV 15 FOUNDATIO MINUTES OFFICE 74037 DAVE MEJIA 2 2 MEDICAL RAY T VISIT SERV 15 FOUNDATIO MINUTES HOSPITAL UNIVERSIT - 2 2 Y [facility] T OFFICE 35562 DAVE NASHO OUTPATIEN 2 2 MEDICAL T VISIT SERV 25 FOUNDATIO MINUTES OFFICE 65263 DAVE RAMIREZ OUTPATIEN 2 2 MEDICAL T VISIT SERV 25 FOUNDATIO [facility] ANA - 2 2 [facility] H[facility] OUTPATIEN [facility] T OFFICE 97507 DAVE NASHO OUTPATIEN 1 1 MEDICAL T VISIT SERV 15 [facility] UNIVERSIT - 1 1 Y [facility] T OFFICE 15191 DAVE MACKWAN OUTPATIEN 1 1 MEDICAL MAGAN T VISIT SERV 15 FOUNDATIO MINUTES OFFICE 47556 DAVE NASHO OUTPATIEN 1 1 MEDICAL T VISIT SERV 25 [facility] UNIVERSIT - 1 1 Y [facility] T OFFICE 31948 DAVE MATT OUTPATIEN 1 1 MEDICAL [place]AY T VISIT SERV 10 [facility] UNIVERSIT - 1 1 Y [facility] T OFFICE 63177 DAVE MATT OUTPATIEN 1 1 MEDICAL [place]AY T VISIT SERV 15 FOUNDATIO MINUTES OFFICE 44607 NALLELY COLÓN OUTPATIEN 1 1 KHOA T NEW 30 CHIROPRAC MINUTES [facility] 75090 SUNNI MOELLER OUTPATIEN 1 1 NANCY NANCY T NEW 30 MINUTES HOSPITAL ANA - 1 1 [facility] OUTPATIEN [facility] ANA - 1 1 [facility] OUTPATIEN [facility] T OFFICE 78845 DAVE MATT OUTPATIEN 1 1 MEDICAL RAY T VISIT SERV 15 [facility] UNIVERSIT - [address] [facility] UNIVERSIT - [address] [facility] UNIVERSIT - 0 0 Y [facility] T EMERGENCY 20090 DAVE MOORE [facility]IT FOUNDATIO MODERATE SEVERITY EMERGENCY 82039 UNIVERSIT 0 0 Y [facility] T VISIT LOW/MODER SEVERITY [facility] UNIVERSIT - 0 0 Y [facility] T EMERGENCY 04178 DAVE [place] DEPT 0 0 MEDICAL [place] VISIT SERV HIGH FOUNDATIO SEVERITY& THREAT FUNCJ
--- OUTSIDE RECORDS SUMMARY | 2017-07-15 07:24 | External Medical Summary Rpt ---
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 ANA PEREZ MODALITY 2 [facility] 1/> AREAS INC INC ULTRASOUN D EA 15 MIN PHYSICAL 23279 ANA PEREZ THERAPY 2 [facility]OS[facility] EVALUATIO INC INC N APPLICATI 30786 NALLELY COLÓN ON 1 KHOA MODALITY CHIROPRAC 1/> AREAS TIC CENTE HOT/COLD PACKS CHIROPRAC 17517 NALLELY COLÓN TIC 1 KHOA MANIPULAT CHIROPRAC BEATRIZ TX TIC CENTE SPINAL 3-4 REGIONS APPL 02863 [place] KATARZYNA MODALITY 1 KHOA 1/> AREAS CHIROPRAC TRACTION TIC CENTE MECHANICA L CHIROPRAC 65181 NALLELY COLÓN TIC 1 KHOA MANIPLTV CHIROPRAC TX TIC CENTE EXTRASPIN AL > REGION APPL 92771 NALLELY COLÓN MODALITY 1 KHOA 1/> AREAS CHIROPRAC ELEC TIC CENTE STIMJ UNATTENDE D APPL 94495 [place] KATARZYNA MODALITY 1 KHOA 1/> AREAS CHIROPRAC ELEC TIC CENTE STIMJ UNATTENDE D CHIROPRAC 12361 CYNBRO COLÓN TIC 1 KHOA MANIPLTV CHIROPRAC TX TIC CENTE EXTRASPIN AL 1> REGION APPL 63320 [place]ORRIETH[place] KATARZYNA MODALITY 1 KHOA 1/> AREAS CHIROPRAC TRACTION TIC CENTE MECHANICA L CHIROPRAC 18995 NALLELY COLÓN TIC 1 KHOA MANIPULAT CHIROPRAC BEATRIZ TX TIC CENTE SPINAL 3-4 REGIONS APPLICATI 29969 NALLELY COLÓN ON 1 KHOA MODALITY CHIROPRAC 1/> AREAS TIC CENTE HOT/COLD PACKS NEUROPLAS 83458 [place] [facility] TY 1 MEDICAL MAGAN &/TRANSPO SERV S MEDIAN FOUNDATIO NRV CARPAL TUNNE INJECTION [place] CHRISTEL 1 MEDICAL MAGAN THERAPEUT SERV IC CARPAL FOUNDATIO TUNNEL CHIROPRAC 05419 NALLELY COLÓN TIC 1 KHOA MANIPLTV CHIROPRAC TX TIC CENTE EXTRASPIN AL > REGION APPL 99821 NALLELY COLÓN MODALITY 1 KHOA 1/> AREAS CHIROPRAC ELEC TIC CENTE STIMJ UNATTENDE D APPLICATI 19726 NALLELY COLÓN ON 1 KHOA MODALITY CHIROPRAC 1/> AREAS TIC CENTE HOT/COLD PACKS CHIROPRAC 11713 NALLELY COLÓN TIC 1 KHOA MANIPULAT CHIROPRAC BEATRIZ TX TIC CENTE SPINAL 3-4 REGIONS APPL 13339 NALLELY COLÓN MODALITY 1 KHOA 1/> AREAS CHIROPRAC TRACTION TIC CENTE MECHANICA L NRV CNDJ 68455 [place] [facility] AMPLT&LAT 1 MEDICAL ENCY EA SERV NRV MOTOR FOUNDATIO W/F-WAVE STD NRV CNDJ 16201 [place] [facility] [place] AMPLITUDE 1 MEDICAL & SERV LATENCY FOUNDATIO EACH NERVE SENSORY NDL EMG 1 83592 [place] [facility] [place] XTR W/WO 1 MEDICAL RELATED SERV PARASPINA FOUNDATIO L AREAS APPLICATI 00099 NALLELY COLÓN ON 1 KHOA MODALITY CHIROPRAC 1/> AREAS TIC CENTE HOT/COLD PACKS CHIROPRAC 86316 NALLELY COLÓN TIC 1 KHOA MANIPULAT CHIROPRAC BEATRIZ TX TIC CENTE SPINAL 3-4 REGIONS APPL 72092 NALLELY COLÓN MODALITY 1 KHOA 1/> AREAS CHIROPRAC ELEC TIC CENTE STIMJ UNATTENDE D APPL 51082 NALLELY COLÓN MODALITY 1 KHOA 1/> AREAS CHIROPRAC TRACTION TIC CENTE MECHANICA L CHIROPRAC 41638 NALLELY COLÓN TIC 1 KHOA MANIPLTV CHIROPRAC TX TIC CENTE EXTRASPIN AL 1/> REGION APPL 17179 NALLELY COLÓN MODALITY 1 KHOA 1/> AREAS CHIROPRAC ELEC TIC CENTE STIMJ UNATTENDE D CHIROPRAC 90676 NALLELY COLÓN TIC 1 KHOA MANIPLTV CHIROPRAC TX TIC CENTE EXTRASPIN AL 1/> REGION CHIROPRAC 89804 NALLELY COLÓN TIC 1 KHOA MANIPULAT CHIROPRAC BEATRIZ TX TIC CENTE SPINAL 3-4 REGIONS APPL 14651 NALLELY COLÓN MODALITY 1 KHOA 1/> AREAS CHIROPRAC TRACTION TIC CENTE MECHANICA L APPLICATI 22960 NALLELY COLÓN ON 1 KHOA MODALITY CHIROPRAC 1/> AREAS TIC CENTE HOT/COLD PACKS MANUAL 41329 NALLELY COLÓN THERAPY 1 KHOA TQS 1/> CHIROPRAC REGIONS TIC CENTE EACH 15 MINUTES ARTHROCEN 70264 [place] DANIEL RAMIREZ TESIS 1 MEDICAL ASPIR&/IN SERV J INTERM FOUNDATIO JT/BURS W/O US INJECTION J3301 [place] DANIEL SCO 1 MEDICAL TRIAMCINO SERV LONE FOUNDATIO ACETONIDE NOS 10 MG MRI ANY 44029 [facility] UPPER 1 Y Y EXTREMITY [facility] W/CONTRAS T MATRL INJECTION 95118 [facility] SHOULDER 1 Y Y [facility] ARTHROG PHY/ CT/MRI ARTHG RADEX 64192 [facility] 1 [facility]&I APPLICATI 79761 NALLELY COLÓN ON 1 KHOA MODALITY CHIROPRAC 1/> AREAS TIC CENTE HOT/COLD PACKS CHIROPRAC 39872 NALLELY COLÓN TIC 1 KHOA MANIPULAT CHIROPRAC BEATRIZ TX TIC CENTE SPINAL 3-4 REGIONS CHIROPRAC 67407 NALLELY COLÓN TIC 1 KHOA MANIPLTV CHIROPRAC TX TIC CENTE EXTRASPIN AL 1/> REGION APPL 38604 NALLELY COLÓN MODALITY 1 KHOA 1/> AREAS CHIROPRAC TRACTION TIC CENTE MECHANICA L APPL 78702 NALLELY COLÓN MODALITY 1 KOHA 1/> AREAS CHIROPRAC ELEC TIC CENTE STIMJ UNATTENDE D APPL 69240 NALLELY COLÓN MODALITY 1 KHOA 1/> AREAS CHIROPRAC ELEC TIC CENTE STIMJ UNATTENDE D APPL 19580 NALLELY COLÓN MODALITY 1 KHOA 1/> AREAS CHIROPRAC TRACTION TIC CENTE MECHANICA L CHIROPRAC 41010 NALLELY COLÓN TIC 1 KHOA MANIPLTV CHIROPRAC TX TIC CENTE EXTRASPIN AL 1/> REGION CHIROPRAC 20195 NALLELY COLÓN TIC 1 KHOA MANIPULAT CHIROPRAC BEATRIZ TX TIC CENTE SPINAL 3-4 REGIONS APPLICATI 02491 NALLELY COLÓN ON 1 KHOA MODALITY CHIROPRAC 1/> AREAS TIC CENTE HOT/COLD PACKS APPLICATI 38831 NALLELY COLÓN ON 1 KHOA MODALITY CHIROPRAC 1/> AREAS TIC CENTE HOT/COLD PACKS CHIROPRAC 94042 NALLELY COLÓN TIC 1 KHOA MANIPULAT CHIROPRAC BEATRIZ TX TIC CENTE SPINAL 3-4 REGIONS CHIROPRAC 30678 NALLELY COLÓN TIC 1 KHOA MANIPLTV CHIROPRAC TX TIC CENTE EXTRASPIN AL 1/> REGION APPL 54733 NALLELY COLÓN MODALITY 1 KHOA 1/> AREAS CHIROPRAC TRACTION TIC CENTE MECHANICA L APPL 49621 NALLELY COLÓN MODALITY 1 KHOA 1/> AREAS CHIROPRAC ELEC TIC CENTE STIMJ UNATTENDE D APPL 11888 NALLELY COLÓN MODALITY 1 KHOA 1/> AREAS CHIROPRAC ELEC TIC CENTE STIMJ UNATTENDE D APPL 01943 NALLELY COLÓN MODALITY 1 KHOA 1/> AREAS CHIROPRAC TRACTION TIC CENTE MECHANICA L CHIROPRAC 89917 NALLELY COLÓN TIC 1 KHOA MANIPLTV CHIROPRAC TX TIC CENTE EXTRASPIN AL 1/> REGION CHIROPRAC 90098 NALLELY COLÓN TIC 1 KHOA MANIPULAT CHIROPRAC BEATRIZ TX TIC CENTE SPINAL 3-4 REGIONS APPLICATI 95866 NALLELY COLÓN ON 1 KHOA MODALITY CHIROPRAC 1/> AREAS TIC CENTE HOT/COLD PACKS RADEX 83830 [place] [facility] ANKLE 1 MEDICAL GERSON COMPLETE SERV MINIMUM 3 FOUNDATIO VIEWS RADIOLOGI 67527 [place] [facility] C 1 MEDICAL GERSON EXAMINATI SERV ON PELVIS FOUNDATIO 1/2 VIEWS CHIROPRAC 24262 NALLELY COLÓN TIC 1 KHOA MANIPLTV CHIROPRAC TX TIC CENTE EXTRASPIN AL 1/> REGION APPL 79326 NALLELY COLÓN MODALITY 1 KHOA 1/> AREAS CHIROPRAC TRACTION TIC CENTE MECHANICA L APPL 87267 NALLELY COLÓN MODALITY 1 KHOA 1/> AREAS CHIROPRAC ELEC TIC CENTE STIMJ UNATTENDE D APPLICATI 02503 NALLELY COLÓN ON 1 KHOA MODALITY CHIROPRAC 1/> AREAS TIC CENTE HOT/COLD PACKS CHIROPRAC 57252 NALLELY COLÓN TIC 1 KHOA MANIPULAT CHIROPRAC BEATRIZ TX TIC CENTE SPINAL 3-[place] [address] FARRAR FARRAR LIP 1 LUIS MANUEL LUIS MANUEL CHIROPRAC 85573 NALLELY COLÓN TIC 1 KHOA MANIPULAT CHIROPRAC BEATRIZ TX TIC CENTE SPINAL 3-4 REGIONS APPL 24356 NALLELY BROWNING MODALITY 1 1/> AREAS CHIROPRAC CHIROPRAC TRACTION TIC CENTE TIC CENTE MECHANICA L APPL 18906 NALLELY COLÓN MODALITY 1 KHOA 1/> AREAS CHIROPRAC ELEC TIC CENTE STIMJ UNATTENDE D CHIROPRAC 83214 NALLELY COLÓN TIC 1 KHOA MANIPLTV CHIROPRAC TX TIC CENTE EXTRASPIN AL 1/> REGION CHIROPRAC 20084 NALLELY COLÓN TIC 1 KHOA MANIPLTV CHIROPRAC TX TIC CENTE EXTRASPIN AL 1/> REGION APPL 12485 NALLELY COLÓN MODALITY 1 KHOA 1/> AREAS CHIROPRAC ELEC TIC CENTE STIMJ UNATTENDE D APPL 36081 NALLELY COLÓN MODALITY 1 KHOA 1/> AREAS CHIROPRAC TRACTION TIC CENTE MECHANICA L CHIROPRAC 19135 NALLELY COLÓN TIC 1 KHOA MANIPULAT CHIROPRAC BEATRIZ TX TIC CENTE SPINAL 3-4 REGIONS APPLICATI 25309 NALLELY COLÓN ON 1 KHOA MODALITY CHIROPRAC 1/> AREAS TIC CENTE HOT/COLD PACKS APPLICATI 13697 NALLELY COLÓN ON 1 KHOA MODALITY CHIROPRAC 1/> AREAS TIC CENTE HOT/COLD PACKS CHIROPRAC 13824 NALLELY COLÓN TIC 1 KHOA MANIPULAT CHIROPRAC BEATRIZ TX TIC CENTE SPINAL 3-4 REGIONS APPL 57485 NALLELY COLÓN MODALITY 1 KHOA 1/> AREAS CHIROPRAC TRACTION TIC CENTE MECHANICA L CHIROPRAC 35182 NALLELY COLÓN TIC 1 KHOA MANIPLTV CHIROPRAC TX TIC CENTE EXTRASPIN AL 1/> REGION APPL 60859 NALLELY COLÓN MODALITY 1 KHOA 1/> AREAS CHIROPRAC ELEC TIC CENTE STIMJ UNATTENDE D CHIROPRAC 40360 NALLELY COLÓN TIC 1 KHOA MANIPLTV CHIROPRAC TX TIC CENTE EXTRASPIN AL 1/> REGION APPL 46255 NALLELY COLÓN MODALITY 1 KHOA 1/> AREAS CHIROPRAC ELEC TIC CENTE STIMJ UNATTENDE D APPL 84262 NALLELY COLÓN MODALITY 1 KHOA 1/> AREAS CHIROPRAC TRACTION TIC CENTE MECHANICA L CHIROPRAC 85458 NALLELY CLOÓN TIC 1 KHOA MANIPULAT CHIROPRAC BEATRIZ TX TIC CENTE SPINAL 3-4 REGIONS APPLICATI 07749 NALLELY COLÓN ON 1 KHOA MODALITY CHIROPRAC 1/> AREAS TIC CENTE HOT/COLD PACKS APPLICATI 26222 NALLELY COLÓN ON 1 KHOA MODALITY CHIROPRAC 1/> AREAS TIC CENTE HOT/COLD PACKS CHIROPRAC 81609 NALLELY COLÓN TIC 1 KHOA MANIPULAT CHIROPRAC BEATRIZ TX TIC CENTE SPINAL 3-4 REGIONS APPL 42303 NALLELY COLÓN MODALITY 1 KHOA 1/> AREAS CHIROPRAC TRACTION TIC CENTE MECHANICA L APPL 07613 NALLELY COLÓN MODALITY 1 KHOA 1/> AREAS CHIROPRAC ELEC TIC CENTE STIMJ UNATTENDE D CHIROPRAC 79423 NALLELY COLÓN TIC 1 KHOA MANIPLTV CHIROPRAC TX TIC CENTE EXTRASPIN AL 1/> REGION CHIROPRAC 00356 NALLELY COLÓN TIC 1 KHOA MANIPLTV CHIROPRAC TX TIC CENTE EXTRASPIN AL 1/> REGION APPL 08962 NALLELY COLÓN MODALITY 1 KHOA 1/> AREAS CHIROPRAC TRACTION TIC CENTE MECHANICA L APPL 81972 NALLELY COLÓN MODALITY 1 KHOA 1/> AREAS CHIROPRAC ELEC TIC CENTE STIMJ UNATTENDE D CHIROPRAC 55416 NALLELY COLÓN TIC 1 KHOA MANIPULAT CHIROPRAC BEATRIZ TX TIC CENTE SPINAL 3-4 REGIONS APPLICATI 67959 NALLELY COLÓN ON 1 KHOA MODALITY CHIROPRAC 1/> AREAS TIC CENTE HOT/COLD PACKS APPLICATI 52732 NALLELY COLÓN ON 1 KHOA MODALITY CHIROPRAC 1/> AREAS TIC CENTE HOT/COLD PACKS APPL 45318 NALLELY COLÓN MODALITY 1 KHOA 1/> AREAS CHIROPRAC TRACTION TIC CENTE MECHANICA L CHIROPRAC 97350 NALLELY COLÓN TIC 1 KHOA MANIPULAT CHIROPRAC BEATRIZ TX TIC CENTE SPINAL 3-4 REGIONS CHIROPRAC 97618 NALLELY COLÓN TIC 1 KHOA MANIPLTV CHIROPRAC TX TIC CENTE EXTRASPIN AL 1/> REGION APPL 51314 NALLELY COLÓN MODALITY 1 KHOA 1/> AREAS CHIROPRAC ELEC TIC CENTE STIMJ UNATTENDE D CHIROPRAC 88449 NALLELY COLÓN TIC 1 KOHA MANIPLTV CHIROPRAC TX TIC CENTE EXTRASPIN AL 1/> REGION APPL 49677 NALLELY COLÓN MODALITY 1 KHOA 1/> AREAS CHIROPRAC ELEC TIC CENTE STIMJ UNATTENDE D APPL 68379 NALLELY COLÓN MODALITY 1 KHOA 1/> AREAS CHIROPRAC TRACTION TIC CENTE MECHANICA L CHIROPRAC 47122 NALLELY COLÓN TIC 1 KHOA MANIPULAT CHIROPRAC BEATRIZ TX TIC CENTE SPINAL 3-4 REGIONS APPLICATI 66661 NALLELY COLÓN ON 1 KHOA MODALITY CHIROPRAC 1/> AREAS TIC CENTE HOT/COLD PACKS APPLICATI 81187 NALLELY COLÓN ON 1 KHOA MODALITY CHIROPRAC 1/> AREAS TIC CENTE HOT/COLD PACKS APPL 16731 NALLELY COLÓN MODALITY 1 KHOA 1/> AREAS CHIROPRAC TRACTION TIC CENTE MECHANICA L CHIROPRAC 41091 NALLELY COLÓN TIC 1 KHOA MANIPULAT CHIROPRAC BEATRIZ TX TIC CENTE SPINAL 3-4 REGIONS APPL 86973 NALLELY COLÓN MODALITY 1 KHOA 1/> AREAS CHIROPRAC ELEC TIC CENTE STIMJ UNATTENDE D CHIROPRAC 53990 NALLELY COLÓN TIC 1 KHOA MANIPLTV CHIROPRAC TX TIC CENTE EXTRASPIN AL 1/> REGION CHIROPRAC 29389 NALLELY COLÓN TIC 1 KHOA MANIPLTV CHIROPRAC TX TIC CENTE EXTRASPIN AL 1/> REGION APPL 13170 NALLELY BROWNING MODALITY 1 1/> AREAS CHIROPRAC CHIROPRAC ELEC TIC CENTE TIC CENTE STIMJ UNATTENDE D CHIROPRAC 48352 NALLELY COLÓN TIC 1 KHOA MANIPULAT CHIROPRAC BEATRIZ TX TIC CENTE SPINAL 3-4 REGIONS APPLICATI 98441 NALLELY COLÓN ON 1 KHOA MODALITY CHIROPRAC 1/> AREAS TIC CENTE HOT/COLD PACKS APPLICATI 24471 NALLELY COLÓN ON 1 KHOA MODALITY CHIROPRAC 1/> AREAS TIC CENTE HOT/COLD PACKS CHIROPRAC 98380 NALLELY COLÓN TIC 1 KHOA MANIPULAT CHIROPRAC BEATRIZ TX TIC CENTE SPINAL 3-4 REGIONS APPL 64709 NALLELY COLÓN MODALITY 1 KHOA 1/> AREAS CHIROPRAC TRACTION TIC CENTE MECHANICA L APPL 46452 NALLELY COLÓN MODALITY 1 KHOA 1/> AREAS CHIROPRAC ELEC TIC CENTE STIMJ UNATTENDE D CHIROPRAC 90285 NALLELY COLÓN TIC 1 KHOA MANIPLTV CHIROPRAC TX TIC CENTE EXTRASPIN AL 1/> REGION CHIROPRAC 86129 NALLELY COLÓN TIC 1 KHOA MANIPLTV CHIROPRAC TX TIC CENTE EXTRASPIN AL 1/> REGION APPL 73518 NALLELY COLÓN MODALITY 1 KHOA 1/> AREAS CHIROPRAC ELEC TIC CENTE STIMJ UNATTENDE D APPL 26162 NALLELY COLÓN MODALITY 1 KHOA 1/> AREAS CHIROPRAC TRACTION TIC CENTE MECHANICA L CHIROPRAC 98638 NALLELY COLÓN TIC 1 KHOA MANIPULAT CHIROPRAC BEATRIZ TX TIC CENTE SPINAL 3-4 REGIONS APPLICATI 51171 NALLELY COLÓN ON 1 KHOA MODALITY CHIROPRAC 1/> AREAS TIC CENTE HOT/COLD PACKS CHIROPRAC 31125 NALLELY COLÓN TIC 1 KHOA MANIPULAT CHIROPRAC BEATRIZ TX TIC CENTE SPINAL 3-4 REGIONS APPL 98992 NALLELY BROWNING MODALITY 1 1/> AREAS CHIROPRAC CHIROPRAC TRACTION TIC CENTE TIC CENTE MECHANICA L APPL 27846 NALLELY COLÓN MODALITY 1 KHOA 1/> AREAS CHIROPRAC ELEC TIC CENTE STIMJ UNATTENDE D CHIROPRAC 85016 NALLELY COLÓN TIC 1 KHOA MANIPLTV CHIROPRAC TX TIC CENTE EXTRASPIN AL 1/> REGION CHIROPRAC 65790 NALLELY COLÓN TIC 1 KHOA MANIPLTV CHIROPRAC TX TIC CENTE EXTRASPIN AL 1/> REGION APPL 81130 NALLELY COLÓN MODALITY 1 KHOA 1/> AREAS CHIROPRAC ELEC TIC CENTE STIMJ UNATTENDE D APPL 31057 NALLELY COLÓN MODALITY 1 KHOA 1/> AREAS CHIROPRAC TRACTION TIC CENTE MECHANICA L CHIROPRAC 55441 NALLELY COLÓN TIC 1 KHOA MANIPULAT CHIROPRAC BEATRIZ TX TIC CENTE SPINAL 3-4 REGIONS APPLICATI 30581 NALLELY COLÓN ON 1 KHOA MODALITY CHIROPRAC 1/> AREAS TIC CENTE HOT/COLD PACKS APPLICATI 95266 NALLELY COLÓN ON 1 KHOA MODALITY CHIROPRAC 1/> AREAS TIC CENTE HOT/COLD PACKS CHIROPRAC 14248 NALLELY COLÓN TIC 1 KHOA MANIPULAT CHIROPRAC BEATRIZ TX TIC CENTE SPINAL 3-4 REGIONS APPL 16020 NALLELY COLÓN MODALITY 1 KHOA 1/> AREAS CHIROPRAC TRACTION TIC CENTE MECHANICA L APPL 05329 NALLELY COLÓN MODALITY 1 KHOA 1/> AREAS CHIROPRAC ELEC TIC CENTE STIMJ UNATTENDE D CHIROPRAC 31029 NALLELY COLÓN TIC 1 KHOA MANIPLTV CHIROPRAC TX TIC CENTE EXTRASPIN AL 1/> REGION RADEX 98750 NALLELY COLÓN SPINE 1 KHOA LUMBOSACR CHIROPRAC AL 2/3 TIC CENTE VIEWS THERAPEUT 21960 ANA PEREZ IC PX 1/> 1 [facility] AREAS INC INC EACH 15 MIN EXERCISES THERAPEUT 31345 ANA FUENTESON IC PX 1/> 1 [facility] AREAS INC INC EACH 15 MIN EXERCISES THERAPEUT 78118 ANA FUENTESON IC PX 1/> 1 [facility] AREAS INC INC EACH 15 MIN EXERCISES THERAPEUT 57104 ANA FUENTESON IC PX 1/> 1 [facility] AREAS INC INC EACH 15 MIN EXERCISES PHYSICAL 06743 ANA PEREZ THERAPY 1 [facility] EVALUATIO INC INC N RADEX 02057 [place] [facility] WRIST 0 MEDICAL GERSON COMPLETE SERV MINIMUM 3 FOUNDATIO VIEWS RADIOLOGI 50891 [place] [facility] C EXAM 0 MEDICAL GERSON PELVIS SERV COMPL FOUNDATIO MINIMUM 3 VIEWS RADEX 70017 [place] ANKLE 0 MEDICAL GERSON COMPLETE SERV MINIMUM 3 FOUNDATIO VIEWS STANDARD K0001 [facility] PREMIER WHEELCHAI 0 HOME HOME R CARE, INC CARE, INC MNL E0971 PRE[facility] PREMIER WHEELCHAI 0 HOME HOME R CARE, INC CARE, INC ACCESSORY ANTI-TIPP ING DEVC EACH MANUAL E0961 PREMIER PREMIER WHEELCHAI 0 HOME HOME R ACCESS CARE, INC CARE, INC WHEEL LOCK BRAKE EXT EA RADEX 11007 [facility]PITAL MINIMUM 3 VIEWS RADIOLOGI 02972 [facility] HOSPITAL COMPL MINIMUM 3 VIEWS RADEX 61367 [facility] ANKLE 0 Y Y [facility] HOSPITAL MINIMUM 3 VIEWS STANDARD K0001 PREMIER PREMIER WHEELCHAI 0 HOME HOME R CARE, INC CARE, INC MNL E0971 PREMIER PREMIER WHEELCHAI 0 HOME HOME R CARE, INC CARE, INC ACCESSORY ANTI-TIPP ING DEVC EACH MANUAL E0961 PREMIER PREMIER WHEELCHAI 0 HOME HOME R ACCESS CARE, INC CARE, INC WHEEL LOCK BRAKE EXT EA RADEX 26179 [place] WRIST 0 MEDICAL GERSON COMPLETE SERV MINIMUM 3 FOUNDATIO VIEWS RADIOLOGI 69298 [place] C EXAM 0 MEDICAL GERSON PELVIS SERV COMPL FOUNDATIO MINIMUM 3 VIEWS N-INVAS 78702 [place] AYOOB AND PHYSIOLOG 0 MEDICAL IC STD SERV XTR VEINS FOUNDATIO COMPL BI STD DUP-SCAN 36216 [facility] XTR VEINS 0 Y Y [facility] L/LIMITED STUDY MNL E0971 PREMIER PREMIER WHEELCHAI 0 HOME HOME R CARE, INC CARE, INC ACCESSORY ANTI-TIPP ING DEVC EACH MANUAL E0961 PREMIER PREMIER WHEELCHAI 0 HOME HOME R ACCESS CARE, INC CARE, INC WHEEL LOCK BRAKE EXT EA STANDARD K0001 PREMIER PREMIER WHEELCHAI 0 HOME HOME R CARE, INC CARE, INC [facility] [address] [place] DISCHARGE 0 MEDICAL GINGER DAY SERV MANAGEMEN FOUNDATIO T 30 MIN/< SBSQ 35831 [place] [address] MEDICAL NAN CARE/DAY SERV 25 FOUNDATIO MINUTES SBSQ 97954 [facility] 0 MEDICAL R MINDI CARE/DAY SERV 25 FOUNDATIO MINUTES DUP-SCAN 54427 ALPHONSO ALPHONSO XTR VEINS 0 KESHAWN KESHAWN COMPLETE BILATERAL STUDY SBSQ 72694 [facility] 0 MEDICAL R MINDI CARE/DAY SERV 25 FOUNDATIO MINUTES SBSQ 34897 [facility] 0 MEDICAL R MINDI CARE/DAY SERV 25 FOUNDATIO MINUTES RADEX 51399 [place] SHOULDER 0 MEDICAL JT 1 VIEW SERV FOUNDATIO SBSQ 21844 [facility] 0 MEDICAL R MINDI CARE/DAY SERV 25 FOUNDATIO MINUTES SBSQ [address] [facility] 0 MEDICAL NAN CARE/DAY SERV 25 FOUNDATIO MINUTES SBSQ [address] [facility] 0 MEDICAL NAN CARE/DAY SERV 25 FOUNDATIO MINUTES INITIAL 87375 [facility] 0 MEDICAL R MINDI CARE/DAY SERV 50 FOUNDATIO MINUTES GROUND A0425 MERCURYAM MERCURYAM MILEAGE 0 BULAN CE BULAN CE PER [facility] [address] [place] [facility] 0 MEDICAL SAURAV DAY SERV MANAGEMEN FOUNDATIO T 30 MIN/< SBSQ 10697 [place] [facility] 0 MEDICAL SAURAV CARE/DAY SERV 15 FOUNDATIO MINUTES RADEX 05759 [place] [facility] WRIST 0 MEDICAL COMPLETE SERV MINIMUM 3 FOUNDATIO VIEWS SBSQ 25346 [facility] 0 MEDICAL SAURAV CARE/DAY SERV 15 FOUNDATIO MINUTES RADEX 71707 [place] [facility] WRIST 2 0 MEDICAL GERSON VIEWS SERV FOUNDATIO SBSQ 57179 [place] [facility] 0 MEDICAL SAURAV CARE/DAY SERV 15 FOUNDATIO MINUTES SBSQ 70922 [place] [facility] 0 MEDICAL SAURAV CARE/DAY SERV 15 FOUNDATIO MINUTES RADEX 52060 [place] [facility] 0 MEDICAL COMPLETE SERV MINIMUM 2 FOUNDATIO VIEWS PERQ 78689 [place] MATT SKELETAL 0 MEDICAL RAY FIXATION SERV PST FOUNDATIO PELVIC BONE FX&/DIS RADIOLOGI 86769 [place] [facility] SHORT C EXAM 0 MEDICAL PELVIS SERV COMPL FOUNDATIO MINIMUM 3 VIEWS ANESTHESI 36928 [place] A ON BONY 0 MEDICAL EUGEN E PELVIS SERV FOUNDATIO CT PELVIS 33088 [place] SHORT W/O 0 MEDICAL CONTRAST SERV MATERIAL [place] OPTX ANT 97975 [place] PELVIC [place] BONE SERV FX&/DISLC FOUNDAT[place] INT FIXJ IF PFR RADEX 47708 [place] [facility] [facility] SH[place] 0 MEDICAL COMPLETE SERV MINIMUM 2 [place] VIEWS INITIAL 70159 [place] [facility] INPATIENT 0 MEDICAL LIZBETH CONSULT SERV NEW/ESTAB [facility]OUNDAT[facility] PT 20 MIN INITIAL 43669 [place] [facility] 0 MEDICAL CLARKE CARE/DAY SERV [place] [address] [place] DISTAL 0 MEDICAL [place]AY FIBULAR SERV FRACTURE FOUNDAT[place] LAT MALLEOLUS DBRDMT 11960 [place] FX&/DISLC 0 MEDICAL RAY SUBQ SERV T/M/F FOUNDAT[place] BONE ANES OPEN 56361 [place] REY[place]N PROC 0 MEDICAL PAUL BONES SERVICES LOWER LEG/ANKLE /FOOT [place] NJX 24190 [place] RETROGRAD 0 MEDICAL GERSON [place] [address] [place] ABDOMEN 0 MEDICAL BEBA W/CONTRAS SERV T FOUNDAT[place] MATERIAL URETHROCY 90347 [place] STOGRAPHY 0 MEDICAL GERSON SERV RETROGRAD FOUNDATIO E RS&I ECG 16130 [place] JORI C ROUTINE 0 MEDICAL ECG SERV W/LEAST FOUNDATIO 12 LDS I&R ONLY CT PELVIS 99262 [place] W/O & 0 MEDICAL BEBA W/CONTRAS SERV T FOUNDAT[place] MATERIAL RADIOLOGI 21759 [place] ORTI[place] C 0 MEDICAL GERSON EXAMINATI SERV ON TIBIA FOUNDATIO & FIBULA 2 VIEWS RADEX 49142 [place] SHOULDER 0 MEDICAL GERSON COMPLETE SERV MINIMUM [address] LUMBAR 99415 [place] MUSE SPINE 0 MEDICAL DYLON W/O SERV CONTRAST FOUNDAT[place] MATERIAL RADIOLOGI 74652 [place] C 0 MEDICAL GERSON EXAMINATI SERV ON PELVIS FOUNDATIO 1/[address] [place] [address] [place] MUSE CERVICAL 0 MEDICAL DYLON SPINE W/O SERV CONTRAST [facility]OUNDAT[place] MATERIAL RADIOLOGI 43045 [place] ORTI[place] C EXAM 0 MEDICAL GERSON PELVIS SERV COMPL FOUNDATIO MINIMUM 3 VIEWS RADIOLOGI 68431 [place]TI[place] C 0 MEDICAL GERSON EXAMINATI SERV ON [place] [address] [place] MUSE THORACIC 0 MEDICAL DYLON SPINE W/O SERV CONTRAST FOUNDATIO MATERIAL RADEX 48182 [place] TRENT JAM ANKLE 0 MEDICAL COMPLETE SERV MINIMUM 3 [place]OUNDAT[place] VIEWS RADEX 87524 [place] [facility] FOOT 0 MEDICAL GERSON COMPLETE SERV MINIMUM 3 FOUNDATIO VIEWS AMB [id number] PETROLEUM PETROLEUM SERVICE 0 CONVNTION HELICOPTE HELICOPTE AIR SRVC RS INC RS INC TRANSPORT [address] Encounters Encounter Start End Date Code Location Performer Type Date OFFICE 76622 [place] OUTPATIEN 7 7 MEDICAL T VISIT SERV 15 FOUNDATIO MINUTES N OFFICE 36491 [place] OUTPATIEN 6 6 MEDICAL T VISIT SERV 15 FOUNDAT[place] MINUTES N OFFICE 86429 [place] SCO OUTPATIEN 6 6 MEDICAL T VISIT SERV 15 FOUNDATIO MINUTES N OFFICE 18594 [place] SCO OUTPATIEN 6 6 MEDICAL T VISIT SERV 25 FOUNDATIO MINUTES N OFFICE 21723 [place] DANI[place] SCO OUTPATIEN 6 6 MEDICAL T VISIT SERV [address] [facility] ANA - 6 6 [facility] ANA - 6 6 [facility] ANA - 6 6 [facility] 5 5 [facility] UNIVERSIT - [address] [facility] T OFFICE 51416 UNIVERSIT [place] [facility] 5 5 Y T VISIT 5 [facility] UNIVERSIT - [address] [facility] T OFFICE 27861 [facility] 5 NANCY NANCY T VISIT 15 [facility] OFFICE 86481 DAVE DANIEL SCO OUTPATIEN 5 5 MEDICAL T VISIT SERV 25 FOUNDATIO MINUTES N OFFICE 26247 [place] OUTPATIEN 5 5 MEDICAL T VISIT SERV 15 FOUNDATIO MINUTES N OFFICE 23878 DAVE DANIEL SCO OUTPATIEN 5 5 MEDICAL T VISIT SERV 25 FOUNDATIO MINUTES [facility] 69737 DAVE RAMIREZ OUTPATIEN 5 5 MEDICAL T VISIT SERV 15 FOUNDATIO MINUTES N OFFICE 84811 DAVE DANIEL RAMIREZ OUTPATIEN 5 5 MEDICAL T VISIT SERV 15 FOUNDATIO MINUTES N Emergency CLEMENTE Wynn MD (ER) 4 11:25 4 12:22 [facility] EMERGENCY 34581 NEAL PULIDO 4 4 EMERGENCY DEPARTMEN SERVICES T VISIT MODERATE SEVERITY OFFICE 22466 JULIANNEELIEL WHITAKERELIEL OUTPATIEN 4 4 NANCY NANCY T VISIT 40 MINUTES OFFICE 28568 DAVE RAMIREZ OUTPAULIEEN 3 3 MEDICAL T VISIT SERV 25 FOUNDATIO MINUTES N OFFICE 44367 DAVE RAMIREZ OUTCHRIS 3 3 MEDICAL T VISIT SERV 25 FOUNDATIO MINUTES HOSPITAL ANA - 3 3 [facility] OUTPATIEN INC T EMERGENCY 48726 ANA 3 3 [facility] DEPARTMEN INC T VISIT LOW/MODER SEVERITY EMERGENCY 21993 NEAL PHILIPPE 3 3 EMERGENCY DEPARTMEN SERVICES T VISIT MODERATE SEVERITY OFFICE 92075 DEWEY HAM DEWEY HAM OUTPATIEN 2 2 T VISIT 15 MINUTES OFFICE 21697 DEWEY WILTON DEWEY HAM OUTPATIEN 2 2 T NEW 45 MINUTES OFFICE 02963 SUNNI MOELLER OUTPATIEN 2 2 NANCY NANCY T VISIT 15 MINUTES HOSPITAL UNIVERSIT - [address] [facility] T OFFICE 24382 ADVE FRIENDPATIEN 2 2 MEDICAL MAGAN T VISIT SERV 15 FOUNDATIO MINUTES OFFICE 95981 DAVE MEJIA 2 2 MEDICAL [place]AY T VISIT SERV 15 FOUNDATIO MINUTES HOSPITAL UNIVERSIT - [address] [facility] T OFFICE 02286 DAVE NASHO OUTPATIEN 2 2 MEDICAL T VISIT SERV 25 FOUNDATIO MINUTES OFFICE 38100 DAVE RAMIREZ OUTPATIEN 2 2 MEDICAL T VISIT SERV 25 FOUNDATIO [facility] A[facility] - 2 2 MEM H[facility] OUTPATIEN [facility] T OFFICE 20454 DAVE NASHO OUTPATIEN 1 1 MEDICAL T VISIT SERV 15 [facility] UNIVERSIT - [address] [facility] T OFFICE 89862 DAVE MACKWAN OUTPATIEN 1 1 MEDICAL MAGAN T VISIT SERV 15 FOUNDATIO MINUTES OFFICE 33141 DAVE NASHO OUTPATIEN 1 1 MEDICAL T VISIT SERV 25 [facility] UNIVERSIT - [address] [facility] T OFFICE 35832 DAVE MATT OUTPATIEN 1 1 MEDICAL RAY T VISIT SERV 10 [facility] UNIVERSIT - [address] [facility] T OFFICE 02364 DAVE [facility] OUTPATIEN 1 1 MEDICAL RAY T VISIT SERV 15 FOUNDATIO MINUTES OFFICE [id number] [place] OUTPATIEN 1 1 KHOA T NEW 30 CHIROPRAC [facility]ES [facility] [id number] SUNNI MOELLER OUTPATIEN 1 1 NANCY NANCY T NEW 30 MINUTES [facility] ANA - 1 1 [facility] ANA - 1 1 [facility] T OFFICE [id number] DAVE MATT OUTPATIEN 1 [address] RAY T VISIT SERV 15 [facility] UNIVERSIT - [address] [facility] UNIVERSIT - [address] [facility] [id number] DAVE MOORE 0 0 [facility] FOUNDATIO MODERATE SEVERITY EMERGENCY [id number] UNIVERSIT 0 0 Y [facility] T VISIT LOW/MODER SEVERITY [facility] [id number] DAVE [place] DEPT 0 0 MEDICAL [place] VISIT SERV HIGH FOUNDATIO SEVERITY& THREAT FUNCJ
--- OUTSIDE RECORDS SUMMARY | 2017-07-15 07:30 | External Medical Summary Rpt ---
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 CHIROPRAC TX TIC CENTE TIC CENTE EXTRASPIN AL 1/> REGION APPL 15903 [place] MODALITY 2 1/> AREAS CHIROPRAC CHIROPRAC TRACTION TIC CENTE TIC CENTE MECHANICA L APPL 84520 [place] MODALITY 2 1/> AREAS CHIROPRAC CHIROPRAC ELEC TIC CENTE TIC CENTE STIMJ UNATTENDE D APPL 48432 [place] CHERRY DYLON MODALITY 2 1/> AREAS CHIROPRAC ELEC TIC CENTE STIMJ UNATTENDE D APPL 26319 [place] CHERRY DYLON MODALITY 2 1/> AREAS CHIROPRAC TRACTION TIC CENTE MECHANICA L CHIROPRAC 27212 NALLELY CHERRY DYLON TIC 2 MANIPLTV CHIROPRAC TX TIC CENTE EXTRASPIN AL /> REGION THERAPEUT 77425 NALLELY CHERRY DYLON IC PX 1/> 2 AREAS CHIROPRAC EACH 15 TIC CENTE MIN EXERCISES CHIROPRAC 33877 NALLELY CHERRY DYLON TIC 2 MANIPULAT CHIROPRAC BEATRIZ TX TIC CENTE SPINAL 3-4 REGIONS ARTHROCEN 84007 [place] DANIEL DORSEYIS 2 MEDICAL ASPIR&/IN SERV J INTERM FOUNDATIO JT/BURS N W/O US APPL 44661 ANACIARA PEREZ MODALITY 2 [facility] 1/> AREAS INC INC IONTOPHOR ESIS EA 15 MIN THERAPEUT 84546 ANA PEREZ IC PX 1/> 2 [facility] AREAS INC INC EACH 15 MIN EXERCISES THERAPEUT 74669 ANA PEREZ IC PX 1/> 2 [facility] AREAS INC INC EACH 15 MIN EXERCISES APPL 04553 ANA PEREZ MODALITY 2 [facility] 1/> AREAS INC INC IONTOPHOR ESIS EA 15 MIN APPL 06202 ANA PEREZ MODALITY 2 [facility] 1/> AREAS INC INC IONTOPHOR ESIS EA 15 MIN THERAPEUT 06443 ANA PEREZ IC PX 1/> 2 [facility] AREAS INC INC EACH 15 MIN EXERCISES APPL 03814 ANA PEREZ MODALITY 2 [facility] 1/> AREAS INC INC ULTRASOUN D EA 15 MIN PHYSICAL 05776 ANA PEREZ THERAPY 2 [facility] EVALUATIO INC INC N APPLICATI 70268 NALLELY COLÓN ON 1 KHO[facility] MODALITY CHIROPRAC 1/> AREAS TIC CENTE HOT/COLD PACKS CHIROPRAC 82829 NALLELY COLÓN TIC 1 KHO[facility] MANIPULAT CHIROPRAC BEATRIZ TX TIC CENTE SPINAL 3-4 REGIONS CHIROPRAC 44467 NALLELY COLÓN TIC 1 KHOA MANIPLTV CHIROPRAC TX TIC CENTE EXTRASPIN AL /> REGION APPL 31451 NALLELY COLÓN MODALITY 1 KHOA 1/> AREAS CHIROPRAC TRACTION TIC CENTE MECHANICA L APPL 83266 NALLELY COLÓN MODALITY 1 KHOA 1/> AREAS CHIROPRAC ELEC TIC CENTE STIMJ UNATTENDE D APPL 98822 CY[place] COLÓN MODALITY 1 KHOA 1/> AREAS CHIROPRAC ELEC TIC CENTE STIMJ UNATTENDE D APPL 56040 [place] COLÓN MODALITY 1 KHOA 1/> AREAS CHIROPRAC TRACTION TIC CENTE MECHANICA L CHIROPRAC 53963 NALLELY COLÓN TIC 1 KHOA MANIPLTV CHIROPRAC TX TIC CENTE EXTRASPIN AL 1/> REGION CHIROPRAC 04755 NALLELY COLÓN TIC 1 KHOA MANIPULAT CHIROPRAC BEATRIZ TX TIC CENTE SPINAL 3-4 REGIONS APPLICATI 88466 NALLELY COLÓN ON 1 KHOA MODALITY CHIROPRAC 1/> AREAS TIC CENTE HOT/COLD PACKS NEUROPLAS 41022 [place] [facility] T[facility] 1 MEDICAL MAGAN &/TRANSPO SERV S MEDIAN FOUNDATIO NRV CARPAL TUNNE INJECTION 81896 [place] CHRISTEL 1 MEDICAL MAGAN THERAPEUT SERV IC CARPAL FOUNDATIO TUNNEL CHIROPRAC 19076 NALLELY COLÓN TIC 1 KHOA MANIPULAT CHIROPRAC BEATRIZ TX TIC CENTE SPINAL 3-4 REGIONS APPLICATI 70744 NALLELY COLÓN ON 1 [facility] MODALITY CHIROPRAC 1/> AREAS TIC CENTE HOT/COLD PACKS CHIROPRAC 85330 NALLELY COLÓN TIC 1 KHOA MANIPLTV CHIROPRAC TX TIC CENTE EXTRASPIN AL 1/> REGION APPL 06350 NALLELY COLÓN MODALITY 1 KHOA 1/> AREAS CHIROPRAC TRACTION TIC CENTE MECHANICA L APPL 22612 NALLELY COLÓN MODALITY 1 K[facility]A 1/> AREAS CHIROPRAC ELEC TIC CENTE STIMJ UNATTENDE D NDL EMG 1 87031 [facility] XTR W/WO 1 Y Y RELATED [facility] PARASPINA L AREAS NRV CNDJ 56070 [facility] AMPLT&LAT 1 Y Y [facility] NRV MOTOR W/F-WAVE STD NRV CNDJ 97502 [facility] AMPLITUDE 1 Y Y & HOSPITAL HOSPITAL LATENCY EACH NERVE SENSORY CHIROPRAC 75098 NALLELY COLÓN TIC 1 KHOA MANIPULAT CHIROPRAC BEATRIZ TX TIC CENTE SPINAL 3-4 REGIONS APPLICATI 36604 NALLELY COLÓN ON 1 [facility]A MODALITY CHIROPRAC 1/> AREAS TIC CENTE HOT/COLD PACKS APPL 46187 NALLELY COLÓN MODALITY 1 KHOA 1/> AREAS CHIROPRAC ELEC TIC CENTE STIMJ UNATTENDE D APPL 45654 NALLELY COLÓN MODALITY 1 KHOA 1/> AREAS CHIROPRAC TRACTION TIC CENTE MECHANICA L CHIROPRAC 56978 NALLELY COLÓN TIC 1 KHOA MANIPLTV CHIROPRAC TX TIC CENTE EXTRASPIN AL 1/> REGION CHIROPRAC 88775 NALLELY COLÓN TIC 1 KHOA MANIPLTV CHIROPRAC TX TIC CENTE EXTRASPIN AL 1/> REGION APPL 83481 NALLELY COLÓN MODALITY 1 KHOA 1/> AREAS CHIROPRAC TRACTION TIC CENTE MECHANICA L APPL 85995 NALLELY COLÓN MODALITY 1 KHOA 1/> AREAS CHIROPRAC ELEC TIC CENTE STIMJ UNATTENDE D APPLICATI 30176 NALLELY COLÓN ON 1 KHOA MODALITY CHIROPRAC 1/> AREAS TIC CENTE HOT/COLD PACKS CHIROPRAC 88948 NALLELY COLÓN TIC 1 KHOA MANIPULAT CHIROPRAC BEATRIZ TX TIC CENTE SPINAL 3-4 REGIONS MANUAL 14846 NALLELY COLÓN THERAPY 1 KHOA TQS 1/> CHIROPRAC REGIONS TIC CENTE EACH 15 MINUTES INJECTION J3301 DAVE SANCHEZ SCO 1 MEDICAL TRIAMCINO SERV LONE FOUNDATIO ACETONIDE NOS 10 MG ARTHROCEN 64827 DAVE DORSEYIS 1 MEDICAL ASPIR&/IN SERV J INTERM FOUNDATIO JT/BURS W/O US RADEX 17130 [facility] SHOULDER 1 Y Y ARTHROGRA [facility] PHY RS&I MRI ANY 15193 [facility] [place] UPPER 1 Y Y EXTREMITY [facility] W/CONTRAS T MATRL INJECTION [address] [place] [address] Y Y [facility] ARTHROG PHY/ CT/MRI ARTHG CHIROPRAC 89011 NALLELY COLÓN TIC 1 KHOA MANIPULAT CHIROPRAC BEATRIZ TX TIC CENTE SPINAL 3-4 REGIONS APPLICATI 65125 NALLELY COLÓN ON 1 K[facility]A MODALITY CHIROPRAC 1/> AREAS TIC CENTE HOT/COLD PACKS APPL 96783 NALLELY COLÓN MODALITY 1 KHOA 1/> AREAS CHIROPRAC ELEC TIC CENTE STIMJ UNATTENDE D APPL 48180 NALLELY COLÓN MODALITY 1 KHOA 1/> AREAS CHIROPRAC TRACTION TIC CENTE MECHANICA L CHIROPRAC 54468 NALLELY COLÓN TIC 1 KHOA MANIPLTV CHIROPRAC TX TIC CENTE EXTRASPIN AL 1/> REGION CHIROPRAC 26534 NALLELY COLÓN TIC 1 KHOA MANIPLTV CHIROPRAC TX TIC CENTE EXTRASPIN AL 1/> REGION APPL 77629 NALLELY COLÓN MODALITY 1 KHOA 1/> AREAS CHIROPRAC TRACTION TIC CENTE MECHANICA L APPL 28293 NALLELY COLÓN MODALITY 1 KHOA 1/> AREAS CHIROPRAC ELEC TIC CENTE STIMJ UNATTENDE D APPLICATI 67726 NALLELY COLÓN ON 1 KHOA MODALITY CHIROPRAC 1/> AREAS TIC CENTE HOT/COLD PACKS CHIROPRAC 06807 NALLELY COLÓN TIC 1 KHOA MANIPULAT CHIROPRAC BEATRIZ TX TIC CENTE SPINAL 3-4 REGIONS CHIROPRAC 39941 NALLELY COLÓN TIC 1 KHOA MANIPULAT CHIROPRAC BEATRIZ TX TIC CENTE SPINAL 3-4 REGIONS APPLICATI 32704 NALLELY COLÓN ON 1 KHOA MODALITY CHIROPRAC 1/> AREAS TIC CENTE HOT/COLD PACKS APPL 15761 NALLELY COLÓN MODALITY 1 KHOA 1/> AREAS CHIROPRAC ELEC TIC CENTE STIMJ UNATTENDE D APPL 39247 NALLELY COLÓN MODALITY 1 KHOA 1/> AREAS CHIROPRAC TRACTION TIC CENTE MECHANICA L CHIROPRAC 07327 NALLELY COLÓN TIC 1 KHAO MANIPLTV CHIROPRAC TX TIC CENTE EXTRASPIN AL 1/> REGION CHIROPRAC 64955 NALLELY COLÓN TIC 1 KHOA MANIPLTV CHIROPRAC TX TIC CENTE EXTRASPIN AL 1/> REGION APPL 06842 NALLELY COLÓN MODALITY 1 KHOA 1/> AREAS CHIROPRAC TRACTION TIC CENTE MECHANICA L APPL 92532 NALLELY COLÓN MODALITY 1 KHOA 1/> AREAS CHIROPRAC ELEC TIC CENTE STIMJ UNATTENDE D APPLICATI 52460 NALLELY COLÓN ON 1 KHOA MODALITY CHIROPRAC 1/> AREAS TIC CENTE HOT/COLD PACKS CHIROPRAC 07568 NALLELY COLÓN TIC 1 KHOA MANIPULAT CHIROPRAC BEATRIZ TX TIC CENTE SPINAL 3-4 REGIONS RADEX 52090 [facility] ANKLE [address] [facility] MINIMUM 3 VIEWS RADIOLOGI 32569 [facility] 1 Y Y [facility] 1/2 VIEWS CHIROPRAC 39775 NALLELY COLÓN TIC 1 KHOA MANIPULAT CHIROPRAC BEATRIZ TX TIC CENTE SPINAL 3-4 REGIONS APPLICATI 03046 NALLELY COLÓN ON 1 KHOA MODALITY CHIROPRAC 1/> AREAS TIC CENTE HOT/COLD PACKS APPL 19939 NALLELY COLÓN MODALITY 1 KHOA 1/> AREAS CHIROPRAC ELEC TIC CENTE STIMJ UNATTENDE D APPL 18810 NALLELY COLÓN MODALITY 1 KHOA 1/> AREAS CHIROPRAC TRACTION TIC CENTE MECHANICA L CHIROPRAC 63555 NALLELY COLÓN TIC 1 KHOA MANIPLTV CHIROPRAC TX TIC CENTE EXTRASPIN AL 1/> [place] [address] CHARAN FARRAR LIP 1 LUIS MANUEL LUIS MANUEL CHIROPRAC 93665 NALLELY COLÓN TIC 1 KHOA MANIPULAT CHIROPRAC BEATRIZ TX TIC CENTE SPINAL 3-4 REGIONS CHIROPRAC 98129 NALLELY COLÓN TIC 1 KHOA MANIPLTV CHIROPRAC TX TIC CENTE EXTRASPIN AL 1/> REGION APPL 64670 NALLELY BROWNING MODALITY 1 1/> AREAS CHIROPRAC CHIROPRAC TRACTION TIC CENTE TIC CENTE MECHANICA L APPL 48136 NALLELY COLÓN MODALITY 1 KHOA 1/> AREAS CHIROPRAC ELEC TIC CENTE STIMJ UNATTENDE D APPL 39371 NALLELY COLÓN MODALITY 1 KHOA 1/> AREAS CHIROPRAC ELEC TIC CENTE STIMJ UNATTENDE D APPL 51149 NALLELY COLÓN MODALITY 1 KHOA 1/> AREAS CHIROPRAC TRACTION TIC CENTE MECHANICA L CHIROPRAC 47797 NALLELY COLÓN TIC 1 KHOA MANIPLTV CHIROPRAC TX TIC CENTE EXTRASPIN AL 1/> REGION CHIROPRAC 39934 NALLELY COLÓN TIC 1 KHOA MANIPULAT CHIROPRAC BEATRIZ TX TIC CENTE SPINAL 3-4 REGIONS APPLICATI 98033 NALLELY COLÓN ON 1 KHOA MODALITY CHIROPRAC 1/> AREAS TIC CENTE HOT/COLD PACKS APPLICATI 35044 NALLELY COLÓN ON 1 KHOA MODALITY CHIROPRAC 1/> AREAS TIC CENTE HOT/COLD PACKS CHIROPRAC 07361 NALLELY COLÓN TIC 1 KHOA MANIPULAT CHIROPRAC BEATRIZ TX TIC CENTE SPINAL 3-4 REGIONS CHIROPRAC 36812 NALLELY COLÓN TIC 1 KHOA MANIPLTV CHIROPRAC TX TIC CENTE EXTRASPIN AL 1/> REGION APPL 84862 NALLELY COLÓN MODALITY 1 KHOA 1/> AREAS CHIROPRAC TRACTION TIC CENTE MECHANICA L APPL 57268 NALLELY COLÓN MODALITY 1 KHOA 1/> AREAS CHIROPRAC ELEC TIC CENTE STIMJ UNATTENDE D APPL 55429 NALLELY COLÓN MODALITY 1 KHOA 1/> AREAS CHIROPRAC ELEC TIC CENTE STIMJ UNATTENDE D APPL 07036 NALLELY COLÓN MODALITY 1 KHOA 1/> AREAS CHIROPRAC TRACTION TIC CENTE MECHANICA L CHIROPRAC 46670 NALLELY COLÓN TIC 1 KHOA MANIPLTV CHIROPRAC TX TIC CENTE EXTRASPIN AL 1/> REGION CHIROPRAC 74315 NALLELY COLÓN TIC 1 KHOA MANIPULAT CHIROPRAC BEATRIZ TX TIC CENTE SPINAL 3-4 REGIONS APPLICATI 11382 NALLELY COLÓN ON 1 KHOA MODALITY CHIROPRAC 1/> AREAS TIC CENTE HOT/COLD PACKS APPLICATI 52758 NALLELY COLÓN ON 1 KHOA MODALITY CHIROPRAC 1/> AREAS TIC CENTE HOT/COLD PACKS CHIROPRAC 71799 NALLELY COLÓN TIC 1 KHOA MANIPULAT CHIROPRAC BEATRIZ TX TIC CENTE SPINAL 3-4 REGIONS CHIROPRAC 65062 NALLELY COLÓN TIC 1 KHOA MANIPLTV CHIROPRAC TX TIC CENTE EXTRASPIN AL 1/> REGION APPL 05374 NALLLEY COLÓN MODALITY 1 KHOA 1/> AREAS CHIROPRAC TRACTION TIC CENTE MECHANICA L APPL 01131 NALLELY COLÓN MODALITY 1 KHOA 1/> AREAS CHIROPRAC ELEC TIC CENTE STIMJ UNATTENDE D APPL 09107 NALLELY COLÓN MODALITY 1 KHOA 1/> AREAS CHIROPRAC ELEC TIC CENTE STIMJ UNATTENDE D APPL 27984 NALLELY COLÓN MODALITY 1 KHOA 1/> AREAS CHIROPRAC TRACTION TIC CENTE MECHANICA L CHIROPRAC 38811 NALLELY COLÓN TIC 1 KHOA MANIPLTV CHIROPRAC TX TIC CENTE EXTRASPIN AL 1/> REGION CHIROPRAC 21807 NALLELY COLÓN TIC 1 KHOA MANIPULAT CHIROPRAC BEATRIZ TX TIC CENTE SPINAL 3-4 REGIONS APPLICATI 70994 NALLELY COLÓN ON 1 KHOA MODALITY CHIROPRAC 1/> AREAS TIC CENTE HOT/COLD PACKS APPLICATI 80923 NALLELY COLÓN ON 1 KHOA MODALITY CHIROPRAC 1/> AREAS TIC CENTE HOT/COLD PACKS CHIROPRAC 02839 NALLELY COLÓN TIC 1 KHOA MANIPULAT CHIROPRAC BEATRIZ TX TIC CENTE SPINAL 3-4 REGIONS CHIROPRAC 51912 NALLELY COLÓN TIC 1 KHOA MANIPLTV CHIROPRAC TX TIC CENTE EXTRASPIN AL 1/> REGION APPL 63731 NALLELY COLÓN MODALITY 1 KHOA 1/> AREAS CHIROPRAC TRACTION TIC CENTE MECHANICA L APPL 63390 NALLELY COLÓN MODALITY 1 KHOA 1/> AREAS CHIROPRAC ELEC TIC CENTE STIMJ UNATTENDE D APPL 88045 NALLELY COLÓN MODALITY 1 KHOA 1/> AREAS CHIROPRAC ELEC TIC CENTE STIMJ UNATTENDE D APPL 00252 NALLELY COLÓN MODALITY 1 KHOA 1/> AREAS CHIROPRAC TRACTION TIC CENTE MECHANICA L CHIROPRAC 33097 NALLELY COLÓN TIC 1 KHOA MANIPLTV CHIROPRAC TX TIC CENTE EXTRASPIN AL 1/> REGION CHIROPRAC 87694 NALLELY COLÓN TIC 1 KHOA MANIPULAT CHIROPRAC BEATRIZ TX TIC CENTE SPINAL 3-4 REGIONS APPLICATI 66391 NALLELY COLÓN ON 1 KHOA MODALITY CHIROPRAC 1/> AREAS TIC CENTE HOT/COLD PACKS APPLICATI 94042 NALLELY COLÓN ON 1 KHOA MODALITY CHIROPRAC 1/> AREAS TIC CENTE HOT/COLD PACKS CHIROPRAC 35102 NALLELY COLÓN TIC 1 KHOA MANIPULAT CHIROPRAC BEATRIZ TX TIC CENTE SPINAL 3-4 REGIONS APPL 26792 NALLELY COLÓN MODALITY 1 KHOA 1/> AREAS CHIROPRAC TRACTION TIC CENTE MECHANICA L CHIROPRAC 85160 NALLELY COLÓN TIC 1 KHOA MANIPLTV CHIROPRAC TX TIC CENTE EXTRASPIN AL 1/> REGION APPL 37236 NALLELY COLÓN MODALITY 1 KHOA 1/> AREAS CHIROPRAC ELEC TIC CENTE STIMJ UNATTENDE D CHIROPRAC 35864 NALLELY COLÓN TIC 1 KHOA MANIPLTV CHIROPRAC TX TIC CENTE EXTRASPIN AL 1/> REGION APPL 64300 NALLELY BROWNING MODALITY 1 1/> AREAS CHIROPRAC CHIROPRAC ELEC TIC CENTE TIC CENTE STIMJ UNATTENDE D CHIROPRAC 10091 NALLELY COLÓN TIC 1 KHOA MANIPULAT CHIROPRAC BEATRIZ TX TIC CENTE SPINAL 3-4 REGIONS APPLICATI 70170 NALLELY COLÓN ON 1 KHOA MODALITY CHIROPRAC 1/> AREAS TIC CENTE HOT/COLD PACKS APPLICATI 71614 NALLELY COLÓN ON 1 KHOA MODALITY CHIROPRAC 1/> AREAS TIC CENTE HOT/COLD PACKS CHIROPRAC 28894 NALLELY COLÓN TIC 1 KHOA MANIPULAT CHIROPRAC BEATRIZ TX TIC CENTE SPINAL 3-4 REGIONS APPL 89291 NALLELY COLÓN MODALITY 1 KHOA 1/> AREAS CHIROPRAC TRACTION TIC CENTE MECHANICA L APPL 18343 NALLELY COLÓN MODALITY 1 KHOA 1/> AREAS CHIROPRAC ELEC TIC CENTE STIMJ UNATTENDE D CHIROPRAC 07910 NALLELY COLÓN TIC 1 KHOA MANIPLTV CHIROPRAC TX TIC CENTE EXTRASPIN AL 1/> REGION CHIROPRAC 34405 NALLELY COLÓN TIC 1 KHOA MANIPLTV CHIROPRAC TX TIC CENTE EXTRASPIN AL 1/> REGION APPL 59043 NALLELY COLÓN MODALITY 1 KHOA 1/> AREAS CHIROPRAC ELEC TIC CENTE STIMJ UNATTENDE D APPL 56810 NALLELY COLÓN MODALITY 1 KHOA 1/> AREAS CHIROPRAC TRACTION TIC CENTE MECHANICA L CHIROPRAC 64810 NALLELY COLÓN TIC 1 KHOA MANIPULAT CHIROPRAC BEATRIZ TX TIC CENTE SPINAL 3-4 REGIONS APPLICATI 23962 NALLELY COLÓN ON 1 KHOA MODALITY CHIROPRAC 1/> AREAS TIC CENTE HOT/COLD PACKS CHIROPRAC 64792 NALLELY COLÓN TIC 1 KHOA MANIPULAT CHIROPRAC BEATRIZ TX TIC CENTE SPINAL 3-4 REGIONS APPL 33730 NALLELY BROWNING MODALITY 1 1/> AREAS CHIROPRAC CHIROPRAC TRACTION TIC CENTE TIC CENTE MECHANICA L APPL 65515 NALLELY COLÓN MODALITY 1 KHOA 1/> AREAS CHIROPRAC ELEC TIC CENTE STIMJ UNATTENDE D CHIROPRAC 90998 NALLELY COLÓN TIC 1 KHOA MANIPLTV CHIROPRAC TX TIC CENTE EXTRASPIN AL 1/> REGION CHIROPRAC 67332 NALLELY COLÓN TIC 1 KHOA MANIPLTV CHIROPRAC TX TIC CENTE EXTRASPIN AL 1/> REGION APPL 93393 NALLELY COLÓN MODALITY 1 KHOA 1/> AREAS CHIROPRAC ELEC TIC CENTE STIMJ UNATTENDE D APPL 62642 NALLELY COLÓN MODALITY 1 KHOA 1/> AREAS CHIROPRAC TRACTION TIC CENTE MECHANICA L CHIROPRAC 48781 NALLELY COLÓN TIC 1 KHOA MANIPULAT CHIROPRAC BEATRIZ TX TIC CENTE SPINAL 3-4 REGIONS APPLICATI 47730 NALLELY COLÓN ON 1 KHOA MODALITY CHIROPRAC 1/> AREAS TIC CENTE HOT/COLD PACKS APPLICATI 96242 NALLELY COLÓN ON 1 KHOA MODALITY CHIROPRAC 1/> AREAS TIC CENTE HOT/COLD PACKS RADEX 68202 NALLELY COLÓN SPINE 1 KHOA LUMBOSACR CHIROPRAC AL 2/3 TIC CENTE VIEWS CHIROPRAC 06381 NALLELY COLÓN TIC 1 KHOA MANIPULAT CHIROPRAC BEATRIZ TX TIC CENTE SPINAL 3-4 REGIONS APPL 27120 NALLELY COLÓN MODALITY 1 KHOA 1/> AREAS CHIROPRAC TRACTION TIC CENTE MECHANICA L APPL 16800 NALLELY COLÓN MODALITY 1 KHOA 1/> AREAS CHIROPRAC ELEC TIC CENTE STIMJ UNATTENDE D CHIROPRAC 93220 NALLELY COLÓN TIC 1 KHOA MANIPLTV CHIROPRAC TX TIC CENTE EXTRASPIN AL 1/> REGION THERAPEUT 21100 ANA ANA IC PX 1/> 1 [facility]AS INC INC EACH 15 MIN EXERCISES THERAPEUT 76018 ANA ANA IC PX 1/> 1 [facility] AREAS INC INC EACH 15 MIN EXERCISES THERAPEUT 90633 ANA ANA IC PX 1/> 1 [facility] AREAS INC INC EACH 15 MIN EXERCISES THERAPEUT 48112 ANA ANA IC PX 1/> 1 [facility] AREAS INC INC EACH 15 MIN EXERCISES PHYSICAL 43207 ANA FU[facility]ESON THERAPY 1 [facility] HOSP EVALUATIO INC INC N RADIOLOGI 17112 [facility] C EXAM 0 [facility] COMPL MINIMUM 3 VIEWS RADEX 48353 [facility] WRIST 0 [facility] MINIMUM 3 VIEWS RADEX 04321 [facility] ANKLE 0 Y Y COMPLETE [facility] MINIMUM 3 VIEWS STANDARD K0001 [facility] WHEELCHAI 0 HOME HOME R CARE, INC CARE, INC MNL [id number] [facility] WHEELCHAI 0 HOME HOME R CARE, INC CARE, INC ACCESSORY ANTI-TIPP ING DEVC EACH MANUAL E0961 [facility] WHEELCHAI 0 HOME HOME R ACCESS CARE, INC CARE, INC WHEEL LOCK BRAKE EXT EA RADIOLOGI 53312 [facility] COMPL MINIMUM 3 VIEWS RADEX 94695 [facility] MINIMUM 3 VIEWS RADEX 91374 [facility] ANKLE [facility] MINIMUM 3 VIEWS STANDARD K0001 [facility] WHEELCHAI 0 HOME HOME R CARE, INC CARE, INC MNL E0971 [facility] WHEELCHAI 0 HOME HOME R CARE, INC CARE, INC ACCESSORY ANTI-TIPP ING DEVC EACH MANUAL E0961 [facility] WHEELCHAI 0 HOME HOME R ACCESS CARE, INC CARE, INC WHEEL LOCK BRAKE EXT EA RADIOLOGI 42380 [facility] EXAM 0 Y [facility] COMPL MINIMUM 3 VIEWS RADEX 61903 [facility] MINIMUM 3 VIEWS DUP-SCAN 17677 [facility] XTR VEINS 0 Y Y [facility]ITAL [facility]PITAL UNILATERA L/LIMITED STUDY N-INVAS 62308 ME AYOOB AND PHYSIOLOG 0 MEDICAL IC STD SERV XTR VEINS FOUNDATIO COMPL BI STD STANDARD K0001 [facility] WHEELCHAI 0 HOME HOME R CARE, INC CARE, INC MNL E0971 PRE[facility] PREMIER WHEELCHAI 0 HOME HOME R CARE, INC CARE, INC ACCESSORY ANTI-TIPP ING DEVC EACH MANUAL E0961 [facility] WHEELCHAI 0 HOME HOME R ACCESS CARE, INC CARE, INC WHEEL LOCK BRAKE EXT EA HOSPITAL 79315 [place] [facility] DIS[facility]GE 0 MEDICAL GINGER DAY SERV MANAGEMEN FOUNDATIO T 30 MIN/< SBSQ 70535 [facility] 0 MEDICAL NAN CARE/DAY SERV 25 FOUNDATIO MINUTES SBSQ 21155 [facility] 0 MEDICAL R MINDI CARE/DAY SERV 25 FOUNDATIO MINUTES DUP-SCAN 12607 ALPHONSO ALPHONSO XTR VEINS 0 KESHAWN KESHAWN COMPLETE BILATERAL STUDY SBSQ 54817 [place] [facility] 0 MEDICAL R MINDI CARE/DAY SERV 25 FOUNDATIO MINUTES SBSQ 24860 [place] [facility] 0 MEDICAL R MINDI CARE/DAY SERV 25 FOUNDATIO MINUTES RADEX 99032 [place] [facility] 0 MEDICAL JT 1 VIEW SERV FOUNDATIO SBSQ 22957 [place] [facility] 0 MEDICAL R MINDI CARE/DAY SERV 25 FOUNDATIO MINUTES SBSQ 94117 [facility] 0 MEDICAL NAN CARE/DAY SERV 25 FOUNDATIO MINUTES SBSQ 79247 [facility] 0 MEDICAL NAN CARE/DAY SERV 25 [facility]OUNDATIO MINUTES [facility] [address] [place] [facility] 0 MEDICAL SAURAV DAY SERV MANAGEMEN FOUNDATIO T 30 MIN/< INITIAL 43934 [place] [facility] 0 MEDICAL R MINDI CARE/DAY SERV 50 FOUNDATIO MINUTES GROUND [id number] [facility] MERCURYAM MILEAGE 0 BULAN CE BULAN CE PER SVC SVC STATUTE MILE RADEX 84583 [place] [facility] 0 MEDICAL COMPLETE SERV MINIMUM 3 FOUNDATIO VIEWS SBSQ 75222 [facility] 0 MEDICAL SAURAV CARE/DAY SERV 15 FOUNDATIO MINUTES RADEX 62300 [place] [facility] WRIST 2 0 MEDICAL GERSON VIEWS SERV FOUNDATIO SBSQ 27778 [facility] 0 MEDICAL SAURAV CARE/DAY SERV 15 FOUNDATIO MINUTES SBSQ 94567 [place] [facility] 0 MEDICAL SAURAV CARE/DAY SERV 15 FOUNDATIO MINUTES SBSQ 33413 [place] [facility] 0 MEDICAL SAURAV CARE/DAY SERV 15 FOUNDATIO MINUTES RADEX 49760 [place] [facility] 0 MEDICAL COMPLETE SERV MINIMUM 2 FOUNDATIO VIEWS PERQ 71375 [place] [facility] SKELETAL 0 MEDICAL RAY FIXATION SERV PST FOUNDATIO PELVIC BONE FX&/DIS ANESTHESI 80100 [place] [facility]UKO[facility] A ON BONY 0 MEDICAL EUGEN E PELVIS SERV [place]OUNDATIO RADIOLOGI 80469 [place] [facility] JAM C EXAM 0 MEDICAL PELVIS SERV COMPL FOUNDATIO MINIMUM 3 VIEWS OPTX ANT 73063 [place] [facility]ATT PELVIC 0 MEDICAL RAY BONE SERV FX&/DISLC FOUNDATIO INT FIXJ IF PFR CT PELVIS 25812 [place] [facility] SHORT W/O 0 MEDICAL CONTRAST SERV MATERIAL [facility]OUNDATIO RADEX 49060 [place] [facility] 0 MEDICAL COMPLETE SERV MINIMUM 2 FOUNDAT[place] VIEWS INITIAL 66098 [place] [facility] INPATIENT 0 MEDICAL LIZBETH CONSULT SERV NEW/ESTAB FOUNDATIO PT 20 MIN DBRDMT 00682 [place] [facility] FX&/DISLC 0 MEDICAL RAY SUBQ SERV T/M/[place] [address] [place] [facility] DISTAL 0 MEDICAL RAY FIBULAR SERV FRACTURE FOUNDATIO LAT MALLEOLUS ANES OPEN 31659 [place] [facility] PROC 0 MEDICAL PAUL BONES SERVICES LOWER LEG/ANKLE /FOOT NOS INITIAL 44683 [place] [facility] 0 MEDICAL CLARKE CARE/DAY SERV 70 FOUNDATIO MINUTES RADIOLOGI 56305 [place] [facility] C 0 MEDICAL GERSON EXAMINATI SERV ON [place] [address] [place] [facility] THORACIC 0 MEDICAL DYLON SPINE W/O SERV CONTRAST FOUNDATIO MATERIAL NJX 19530 [place] [facility] RETROGRAD 0 MEDICAL GERSON E SERV URETHROCS FOUNDATIO TOGRAPY RADIOLOGI 60232 [place] [facility] C EXAM 0 MEDICAL GERSON PELVIS SERV COMPL F[place]AT[place] [address] [place] [address] [place]USE CERVICAL 0 MEDICAL D[place] SPINE W/[place] [address] [place] [facility] ABDOMEN 0 MEDICAL BEBA W/CONTRAS SERV T FOUNDATIO MATERIAL URETHROCY 71609 [place] [facility] STOGRAPHY 0 MEDICAL GERSON SERV RETROGRAD FOUNDATIO E RS&I RADEX 02759 [place] [facility] FOOT 0 MEDICAL GERSON COMPLETE SERV MINIMUM 3 FOUNDATIO VIEWS RADEX 31343 [place] [facility] SHOULDER 0 MEDICAL GERSON COMPLETE SERV MINIMUM 2 FOUNDATIO VIEWS RADIOLOGI 03195 [place] [facility] C 0 MEDICAL GERSON EXAMINATI SERV ON TIBIA FOUNDATIO & FIBULA [address] LUMBAR 23073 [place] MUSE SPINE 0 MEDICAL DYLON W/O SERV CONTRAST FOUNDATIO MATERIAL RADIOLOGI 98661 [place] [facility] C 0 MEDICAL GERSON EXAMINATI SERV ON PELVIS FOUNDATIO 1/2 VIEWS ECG 61850 [place] JORI C ROUTINE 0 MEDICAL ECG SERV W/LEAST FOUNDATIO 12 LDS I&R ONLY CT PELVIS 32944 [place] ATTILI W/O & 0 MEDICAL ANI W/CONTRAS SERV T FOUNDATIO MATERIAL RADEX 33908 [place] [facility] ANKLE 0 MEDICAL GERSON COMPLETE SERV MINIMUM 3 FOUNDATIO VIEWS AMB [id number] PETROLE[facility] PETROLEUM SERVICE 0 CONVNTION HELICOPTE HELICOPTE AIR SRVC RS INC INC TRANSPORT [address] Encounters Encounter Start End Date Code Location Performer Type Date OFFICE 30459 [place] [facility] 7 7 MEDICAL T VISIT SERV 15 FOUNDATIO MINUTES N OFFICE 46352 [place] OUTPATI[place] 6 6 MEDICAL T VISIT SERV 15 FOUNDATIO MINUTES N OFFICE 23201 [place] SCO OUTPATIEN 6 6 MEDICAL T VISIT SERV 15 FOUNDATIO MINUTES N OFFICE 06511 [place] [facility] OUTPATIEN 6 6 MEDICAL T VISIT SERV 25 FOUNDATIO MINUTES N OFFICE 85651 [place] [facility] OUTPATIEN 6 6 MEDICAL T VISIT SERV 15 FOUNDATIO MINUTES [facility]OSPITAL [facility] - 6 6 [facility] - 6 6 [facility] - 6 6 [facility] - 5 5 [facility] 83979 [facility] Y T [facility]ISIT 5 [facility] - [facility] 5 Y [facility]OSPITAL T OFFICE 81271 SUNNI MOELLER OUTPATIEN 5 5 NANCY NANCY T VISIT 15 MINUTES OFFICE 58072 DAVE DANIEL SCO OUTPATIEN 5 5 MEDICAL T VISIT SERV 25 FOUNDATIO MINUTES N OFFICE 05924 [place] [facility] 5 5 MEDICAL T VISIT SERV 15 FOUNDATIO MINUTES N OFFICE 16111 DAVE DANIEL SCO OUTPATIEN 5 5 MEDICAL T VISIT SERV 25 FOUNDATIO MINUTES N HOSPITAL UNIVERSIT - 5 5 Y [facility] T OFFICE 39082 DAVE DANIEL SCO OUTPATIEN 5 5 MEDICAL T VISIT SERV 15 FOUNDATIO MINUTES N OFFICE 19372 DAVE DANIEL SCO OUTPATIEN 5 5 MEDICAL T VISIT SERV 15 FOUNDATIO MINUTES N EMERGENCY 04284 NEAL PULIDO 4 4 EMERGENCY DEPARTMEN SERVICES T VISIT MODERATE SEVERITY OFFICE 56488 SUNNI MOELLER OUTPATIEN 4 4 NANCY NANCY T VISIT 40 MINUTES OFFICE 33842 DAVE DANIEL SCO OUTPATIEN 3 3 MEDICAL T VISIT SERV 25 FOUNDATIO MINUTES N OFFICE 54890 DAVE SANCHEZ SCO OUTPATIEN 3 3 MEDICAL T VISIT SERV 25 FOUNDATIO MINUTES EMERGENCY 78169 ANA 3 3 [facility] DEPARTMEN INC T VISIT LOW/MODER SEVERITY [facility]OSPITAL ANA - 3 3 [facility] OUTPATIEN INC T EMERGENCY 61340 NEAL PHILIPPE 3 3 EMERGENCY DEPARTMEN SERVICES T VISIT MODERATE SEVERITY OFFICE 89342 [facility] OUTPATIEN 2 2 T VISIT 15 MINUTES OFFICE 30561 [facility] OUTPATIEN 2 2 T NEW 45 MINUTES OFFICE 17631 SUNNI MOELLER OUTPATIEN 2 2 NANCY NANCY T VISIT 15 MINUTES OFFICE 42872 DAVE ALVAREZN OUTPATIEN 2 2 MEDICAL MAGAN T [facility]IT [facility] T OFFICE 11675 DAVE GUTIERREZ OUTPATIEN 2 2 MEDICAL RAY T VISIT SERV 15 [facility] UNIVERSIT - 2 2 Y [facility] T OFFICE [id number] DAVE SANCHEZ SAADO OUTPATIEN 2 2 MEDICAL T VISIT SERV 25 FOUNDATIO MINUTES OFFICE 72589 DAVE DANIEL NAS[facility] 2 2 MEDICAL T VISIT SERV 25 [facility]ATIO [facility] ANA - 2 2 [facility] [place] [facility] T OFFICE 81946 DAVE DANIEL RAMIREZ OUTPATIEN 1 1 MEDICAL T VISIT SERV 15 FOUNDATIO MINUTES OFFICE 55303 DAVE MACKWAN [facility] 1 1 MEDICAL MAGAN T VISIT SERV 15 [facility] UNIVERSIT - 1 1 [facility] T OFFICE 06343 DAVE SANCHEZ JAMES OUTPATIEN 1 1 MEDICAL T VISIT SERV 25 FOUNDATIO MINUTES OFFICE 11090 DAVE MATT OUTPATIEN [address] [place] [place] VIS[place] SERV 10 [facility] UNIV[facility] 1 1 [facility] T OFFICE 07258 DAVE MATT OUTPATIEN [address] [place] [place] T VISIT SERV 15 [facility] UNIVERSIT - 1 1 [facility] T OFFICE 24421 NALLELY COLÓN OUTPATIEN 1 1 [facility] T NEW 30 [facility] MINUTES [facility] OFFICE 51303 ARNOLD ARNOLD OUTPATIEN 1 1 NANCY NANCY T NEW 30 MINUTES [facility] ANA - 1 1 [facility] 1 [facility] 14823 [facility]AVE GUTIERREZ [facility]PATIEN [address] [place] [place] T VISIT SERV 15 FOUNDATIO MINUTES [facility] UNIVERSIT - 0 0 Y [facility] UNIVERSIT [facility] 0 0 Y [facility] UNIVERSIT - 0 0 Y [facility] UNIVERSIT - 0 0 Y [facility] EMERGENCY [id number] DAVE MOORE 0 0 MEDICAL [facility] T VISIT FOUNDATIO MODERATE SEVERITY EMERGENCY 48337 UNIVERSIT 0 0 Y [facility] T VISIT LOW/MODER SEVERITY EMERGENCY 49689 DAVE IRELAND DEPT 0 0 MEDICAL [facility] VISIT SERV HIGH FOUNDATIO SEVERITY& THREAT FUNCJ
--- OUTSIDE RECORDS SUMMARY | 2017-07-15 07:30 | External Medical Summary Rpt ---
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 HOT/COLD PACKS CHIROPRAC 03354 NALLELY COLÓN TIC 1 [facility] MANIPULAT CHIROPRAC BEATRIZ TX TIC CENTE SPINAL 3-4 REGIONS CHIROPRAC 93486 NALLELY COLÓN TIC 1 [facility] MANIPLTV CHIROPRAC TX TIC CENTE EXTRASPIN AL /> REGION APPL 12379 NALLELY COLÓN MODALITY 1 K[facility]A 1/> AREAS CHIROPRAC TRACTION TIC CENTE MECHANICA L APPL 37610 NALLELY COLÓN MODALITY 1 [facility] 1/> AREAS CHIROPRAC ELEC TIC CENTE STIMJ UNATTENDE D APPL 21341 CYNBRO COLÓN MODALITY 1 K[facility] 1/> AREAS CHIROPRAC ELEC TIC CENTE STIMJ UNATTENDE D APPL 01829 CYNBRO COLÓN MODALITY 1 KHOA 1/> AREAS CHIROPRAC TRACTION TIC CENTE MECHANICA L CHIROPRAC 84488 NALLELY COLÓN TIC 1 KHOA MANIPLTV CHIROPRAC TX TIC CENTE EXTRASPIN AL 1/> REGION CHIROPRAC 67165 NALLELY COLÓN TIC 1 KHOA MANIPULAT CHIROPRAC BEATRIZ TX TIC CENTE SPINAL 3-4 REGIONS APPLICATI 57690 NALLELY COLÓN ON 1 [facility] MODALITY CHIROPRAC 1/> AREAS TIC CENTE HOT/COLD PACKS NEUROPLAS 34743 [place] [facility] TY 1 MEDICAL MAGAN &/TRANSPO SERV S MEDIAN FOUNDATIO NRV CARPAL TUNNE INJECTION 02587 [place] [facility] 1 MEDICAL MAGAN THERAPEUT SERV IC CARPAL FOUNDATIO TUNNEL CHIROPRAC 52240 NALLELY COLÓN TIC 1 [facility] MANIPULAT CHIROPRAC BEATRIZ TX TIC CENTE SPINAL 3-4 REGIONS APPLICATI 23889 NALLELY COLÓN ON 1 [facility] MODALITY CHIROPRAC 1/> AREAS TIC CENTE HOT/COLD PACKS CHIROPRAC 30783 NALLELY COLÓN TIC 1 [facility]A MANIPLTV CHIROPRAC TX TIC CENTE EXTRASPIN AL 1/> REGION APPL 92097 NALLELY COLÓN MODALITY 1 KHOA 1/> AREAS CHIROPRAC TRACTION TIC CENTE MECHANICA L APPL 51994 NALLELY COLÓN MODALITY 1 K[facility] 1/> AREAS CHIROPRAC ELEC TIC CENTE STIMJ UNATTENDE D NDL EMG 1 85020 [facility] XTR W/WO 1 Y Y [facility] PARASPINA L AREAS NRV CNDJ 05962 [facility] AMPLT&LAT 1 Y Y [facility] NRV MOTOR W/F-WAVE STD NRV CNDJ 39009 [facility] AMPLITUDE 1 Y Y & HOSPITAL HOSPITAL LATENCY EACH NERVE SENSORY CHIROPRAC 92093 NALLELY COLÓN TIC 1 KHOA MANIPULAT CHIROPRAC BEATRIZ TX TIC CENTE SPINAL 3-4 REGIONS APPLICATI 62456 NALLELY COLÓN ON 1 K[facility] MODALITY CHIROPRAC 1/> AREAS TIC CENTE HOT/COLD PACKS APPL 26496 NALLELY COLÓN MODALITY 1 KHOA 1/> AREAS CHIROPRAC ELEC TIC CENTE STIMJ UNATTENDE D APPL 10501 NALLELY COLÓN MODALITY 1 KHOA 1/> AREAS CHIROPRAC TRACTION TIC CENTE MECHANICA L CHIROPRAC 17561 NALLELY COLÓN TIC 1 KHOA MANIPLTV CHIROPRAC TX TIC CENTE EXTRASPIN AL 1/> REGION CHIROPRAC 39159 NALLELY COLÓN TIC 1 KHOA MANIPLTV CHIROPRAC TX TIC CENTE EXTRASPIN AL 1/> REGION APPL 88488 NALLELY COLÓN MODALITY 1 KHOA 1/> AREAS CHIROPRAC TRACTION TIC CENTE MECHANICA L APPL 01320 NALLELY COLÓN MODALITY 1 KHOA 1/> AREAS CHIROPRAC ELEC TIC CENTE STIMJ UNATTENDE D APPLICATI 86272 NALLELY COLÓN ON 1 [facility] MODALITY CHIROPRAC 1/> AREAS TIC CENTE HOT/COLD PACKS CHIROPRAC 71832 NALLELY COLÓN TIC 1 [facility] MANIPULAT CHIROPRAC BEATRIZ TX TIC CENTE SPINAL 3-4 REGIONS MANUAL 18424 NALLELY COLÓN THERAPY 1 KHOA TQS 1/> CHIROPRAC REGIONS TIC CENTE EACH 15 MINUTES INJECTION J3301 DAVE SANCHEZ SCO 1 MEDICAL TRIAMCINO SERV LONE FOUNDATIO ACETONIDE NOS 10 MG ARTHROCEN 88249 DAVE DORSEYIS 1 MEDICAL ASPIR&/IN SERV J INTERM FOUNDATIO JT/BURS W/O US RADEX 26217 [facility] SHOULDER 1 Y Y ARTHROGRA [facility] PHY RS&I MRI ANY 46686 [facility] UPPER 1 Y Y EXTREMITY [facility] W/CONTRAS T MATRL INJECTION 18932 [place] [address] Y Y [facility] ARTHROG PHY/ CT/MRI ARTHG CHIROPRAC 08472 NALLELY COLÓN TIC 1 KHOA MANIPULAT CHIROPRAC BEATRIZ TX TIC CENTE SPINAL 3-4 REGIONS APPLICATI 09439 NALLELY COLÓN ON 1 [facility] MODALITY CHIROPRAC 1/> AREAS TIC CENTE HOT/COLD PACKS APPL 05862 NALLELY COLÓN MODALITY 1 K[facility]A 1/> AREAS CHIROPRAC ELEC TIC CENTE STIMJ UNATTENDE D APPL 56693 NALLELY COLÓN MODALITY 1 KHOA 1/> AREAS CHIROPRAC TRACTION TIC CENTE MECHANICA L CHIROPRAC 22861 NALLELY COLÓN TIC 1 KHOA MANIPLTV CHIROPRAC TX TIC CENTE EXTRASPIN AL 1/> REGION CHIROPRAC 11371 NALLELY COLÓN TIC 1 KHOA MANIPLTV CHIROPRAC TX TIC CENTE EXTRASPIN AL 1/> REGION APPL 42204 NALLELY COLÓN MODALITY 1 KHOA 1/> AREAS CHIROPRAC TRACTION TIC CENTE MECHANICA L APPL 25826 NALLELY COLÓN MODALITY 1 KHOA 1/> AREAS CHIROPRAC ELEC TIC CENTE STIMJ UNATTENDE D APPLICATI 40411 NALLELY COLÓN ON 1 KHOA MODALITY CHIROPRAC 1/> AREAS TIC CENTE HOT/COLD PACKS CHIROPRAC 08830 NALLELY COLÓN TIC 1 KHOA MANIPULAT CHIROPRAC BEATRIZ TX TIC CENTE SPINAL 3-4 REGIONS CHIROPRAC 78621 NALLELY COLÓN TIC 1 KHOA MANIPULAT CHIROPRAC BEATRIZ TX TIC CENTE SPINAL 3-4 REGIONS APPLICATI 97078 NALLELY COLÓN ON 1 [facility] MODALITY CHIROPRAC 1/> AREAS TIC CENTE HOT/COLD PACKS APPL 95129 NALLELY COLÓN MODALITY 1 KHOA 1/> AREAS CHIROPRAC ELEC TIC CENTE STIMJ UNATTENDE D APPL 20565 NALLELY COLÓN MODALITY 1 KHOA 1/> AREAS CHIROPRAC TRACTION TIC CENTE MECHANICA L CHIROPRAC 13966 NALLELY COLÓN TIC 1 KHOA MANIPLTV CHIROPRAC TX TIC CENTE EXTRASPIN AL 1/> REGION CHIROPRAC 26895 NALLELY COLÓN TIC 1 KHOA MANIPLTV CHIROPRAC TX TIC CENTE EXTRASPIN AL 1/> REGION APPL 49119 NALLELY COLÓN MODALITY 1 KHOA 1/> AREAS CHIROPRAC TRACTION TIC CENTE MECHANICA L APPL 23278 NALLELY COLÓN MODALITY 1 K[facility]A 1/> AREAS CHIROPRAC ELEC TIC CENTE STIMJ UNATTENDE D APPLICATI 84167 NALLELY COLÓN ON 1 KHOA MODALITY CHIROPRAC 1/> AREAS TIC CENTE HOT/COLD PACKS CHIROPRAC 09070 NALLELY COLÓN TIC 1 KHOA MANIPULAT CHIROPRAC BEATRIZ TX TIC CENTE SPINAL 3-4 REGIONS RADEX 21113 [facility] ANKLE 1 Y Y [facility] MINIMUM 3 VIEWS RADIOLOGI 39754 [facility] 1 Y Y [facility] ON PELVIS 1/2 VIEWS CHIROPRAC 78809 NALLELY COLÓN TIC 1 KHOA MANIPULAT CHIROPRAC BEATRIZ TX TIC CENTE SPINAL 3-4 REGIONS APPLICATI 51448 NALLELY COLÓN ON 1 KHOA MODALITY CHIROPRAC 1/> AREAS TIC CENTE HOT/COLD PACKS APPL 93534 NALLELY COLÓN MODALITY 1 KHOA 1/> AREAS CHIROPRAC ELEC TIC CENTE STIMJ UNATTENDE D APPL 40157 NALLELY COLÓN MODALITY 1 KHOA 1/> AREAS CHIROPRAC TRACTION TIC CENTE MECHANICA L CHIROPRAC 66432 NALLELY COLÓN TIC 1 KHOA MANIPLTV CHIROPRAC TX TIC CENTE EXTRASPIN AL 1/> [place] [address] CHARAN FARRAR LIP 1 LUIS MANUEL LUIS MANUEL CHIROPRAC 73679 NALLELY COLÓN TIC 1 KHOA MANIPULAT CHIROPRAC BEATRIZ TX TIC CENTE SPINAL 3-4 REGIONS CHIROPRAC 11838 NALLELY COLÓN TIC 1 KHOA MANIPLTV CHIROPRAC TX TIC CENTE EXTRASPIN AL 1/> REGION APPL 19451 NALLELY BROWNING MODALITY 1 1/> AREAS CHIROPRAC CHIROPRAC TRACTION TIC CENTE TIC CENTE MECHANICA L APPL 74785 NALLELY COLÓN MODALITY 1 KHOA 1/> AREAS CHIROPRAC ELEC TIC CENTE STIMJ UNATTENDE D APPL 38101 NALLELY COLÓN MODALITY 1 KHOA 1/> AREAS CHIROPRAC ELEC TIC CENTE STIMJ UNATTENDE D APPL 26523 NALLELY COLÓN MODALITY 1 KHOA 1/> AREAS CHIROPRAC TRACTION TIC CENTE MECHANICA L CHIROPRAC 13662 NALLELY COLÓN TIC 1 KHOA MANIPLTV CHIROPRAC TX TIC CENTE EXTRASPIN AL 1/> REGION CHIROPRAC 77476 NALLELY COLÓN TIC 1 KHOA MANIPULAT CHIROPRAC BEATRIZ TX TIC CENTE SPINAL 3-4 REGIONS APPLICATI 27206 NALLELY COLÓN ON 1 KHOA MODALITY CHIROPRAC 1/> AREAS TIC CENTE HOT/COLD PACKS APPLICATI 97855 NALLELY COLÓN ON 1 KHOA MODALITY CHIROPRAC 1/> AREAS TIC CENTE HOT/COLD PACKS CHIROPRAC 97272 NALLELY COLÓN TIC 1 KHOA MANIPULAT CHIROPRAC BEATRIZ TX TIC CENTE SPINAL 3-4 REGIONS CHIROPRAC 11990 NALLELY COLÓN TIC 1 KHOA MANIPLTV CHIROPRAC TX TIC CENTE EXTRASPIN AL 1/> REGION APPL 88583 NALLELY COLÓN MODALITY 1 KHOA 1/> AREAS CHIROPRAC TRACTION TIC CENTE MECHANICA L APPL 45678 NALLELY COLÓN MODALITY 1 KHOA 1/> AREAS CHIROPRAC ELEC TIC CENTE STIMJ UNATTENDE D APPL 68822 NALLELY COLÓN MODALITY 1 KHOA 1/> AREAS CHIROPRAC ELEC TIC CENTE STIMJ UNATTENDE D APPL 13049 NALLELY COLÓN MODALITY 1 KHOA 1/> AREAS CHIROPRAC TRACTION TIC CENTE MECHANICA L CHIROPRAC 51698 NALLELY COLÓN TIC 1 KHOA MANIPLTV CHIROPRAC TX TIC CENTE EXTRASPIN AL 1/> REGION CHIROPRAC 75121 NALLELY COLÓN TIC 1 KHOA MANIPULAT CHIROPRAC BEATRIZ TX TIC CENTE SPINAL 3-4 REGIONS APPLICATI 56547 NALLELY COLÓN ON 1 KHOA MODALITY CHIROPRAC 1/> AREAS TIC CENTE HOT/COLD PACKS APPLICATI 28390 NALLELY COLÓN ON 1 KHOA MODALITY CHIROPRAC 1/> AREAS TIC CENTE HOT/COLD PACKS CHIROPRAC 94948 NALLELY COLÓN TIC 1 KHOA MANIPULAT CHIROPRAC BEATRIZ TX TIC CENTE SPINAL 3-4 REGIONS CHIROPRAC 56473 NALLELY COLÓN TIC 1 KHOA MANIPLTV CHIROPRAC TX TIC CENTE EXTRASPIN AL 1/> REGION APPL 34367 NALLELY COLÓN MODALITY 1 KHOA 1/> AREAS CHIROPRAC TRACTION TIC CENTE MECHANICA L APPL 81690 NALLELY COLÓN MODALITY 1 KHOA 1/> AREAS CHIROPRAC ELEC TIC CENTE STIMJ UNATTENDE D APPL 91591 NALLELY COLÓN MODALITY 1 KHOA 1/> AREAS CHIROPRAC ELEC TIC CENTE STIMJ UNATTENDE D APPL 68362 NALLELY COLÓN MODALITY 1 KHOA 1/> AREAS CHIROPRAC TRACTION TIC CENTE MECHANICA L CHIROPRAC 19891 NALLELY COLÓN TIC 1 KHOA MANIPLTV CHIROPRAC TX TIC CENTE EXTRASPIN AL 1/> REGION CHIROPRAC 24537 NALLELY COLÓN TIC 1 KHOA MANIPULAT CHIROPRAC BEATRIZ TX TIC CENTE SPINAL 3-4 REGIONS APPLICATI 38675 NALLELY COLÓN ON 1 KHOA MODALITY CHIROPRAC 1/> AREAS TIC CENTE HOT/COLD PACKS APPLICATI 17596 NALLELY COLÓN ON 1 KHOA MODALITY CHIROPRAC 1/> AREAS TIC CENTE HOT/COLD PACKS CHIROPRAC 65222 NALLELY COLÓN TIC 1 KHOA MANIPULAT CHIROPRAC BEATRIZ TX TIC CENTE SPINAL 3-4 REGIONS CHIROPRAC 76562 NALLELY COLÓN TIC 1 KHOA MANIPLTV CHIROPRAC TX TIC CENTE EXTRASPIN AL 1/> REGION APPL 91996 NALLELY COLÓN MODALITY 1 KHOA 1/> AREAS CHIROPRAC TRACTION TIC CENTE MECHANICA L APPL 00870 NALLELY COLÓN MODALITY 1 KHOA 1/> AREAS CHIROPRAC ELEC TIC CENTE STIMJ UNATTENDE D APPL 85206 NALLELY COLÓN MODALITY 1 KHOA 1/> AREAS CHIROPRAC ELEC TIC CENTE STIMJ UNATTENDE D APPL 62280 NALLELY COLÓN MODALITY 1 KHOA 1/> AREAS CHIROPRAC TRACTION TIC CENTE MECHANICA L CHIROPRAC 78983 NALLELY COLÓN TIC 1 KHOA MANIPLTV CHIROPRAC TX TIC CENTE EXTRASPIN AL 1/> REGION CHIROPRAC 56288 NALLELY COLÓN TIC 1 KHOA MANIPULAT CHIROPRAC BEATRIZ TX TIC CENTE SPINAL 3-4 REGIONS APPLICATI 58348 NALLELY COLÓN ON 1 KHOA MODALITY CHIROPRAC 1/> AREAS TIC CENTE HOT/COLD PACKS APPLICATI 59679 NALLELY COLÓN ON 1 KHOA MODALITY CHIROPRAC 1/> AREAS TIC CENTE HOT/COLD PACKS CHIROPRAC 06545 NALLELY COLÓN TIC 1 KHOA MANIPULAT CHIROPRAC BEATRIZ TX TIC CENTE SPINAL 3-4 REGIONS APPL 82865 NALLELY COLÓN MODALITY 1 KHOA 1/> AREAS CHIROPRAC TRACTION TIC CENTE MECHANICA L CHIROPRAC 49229 NALLELY COLÓN TIC 1 KHOA MANIPLTV CHIROPRAC TX TIC CENTE EXTRASPIN AL 1/> REGION APPL 39879 NALLELY COLÓN MODALITY 1 KHOA 1/> AREAS CHIROPRAC ELEC TIC CENTE STIMJ UNATTENDE D CHIROPRAC 45956 NALLELY COLÓN TIC 1 KHOA MANIPLTV CHIROPRAC TX TIC CENTE EXTRASPIN AL 1/> REGION APPL 20854 NALLELY BROWNING MODALITY 1 1/> AREAS CHIROPRAC CHIROPRAC ELEC TIC CENTE TIC CENTE STIMJ UNATTENDE D CHIROPRAC 88805 NALLELY COLÓN TIC 1 KHOA MANIPULAT CHIROPRAC BEATRIZ TX TIC CENTE SPINAL 3-4 REGIONS APPLICATI 71831 NALLELY COLÓN ON 1 KHOA MODALITY CHIROPRAC 1/> AREAS TIC CENTE HOT/COLD PACKS APPLICATI 66792 NALLELY COLÓN ON 1 KHOA MODALITY CHIROPRAC 1/> AREAS TIC CENTE HOT/COLD PACKS CHIROPRAC 41154 NALLELY COLÓN TIC 1 KHOA MANIPULAT CHIROPRAC BEATRIZ TX TIC CENTE SPINAL 3-4 REGIONS APPL 81884 NALLELY COLÓN MODALITY 1 KHOA 1/> AREAS CHIROPRAC TRACTION TIC CENTE MECHANICA L APPL 68064 NALLELY COLÓN MODALITY 1 KHOA 1/> AREAS CHIROPRAC ELEC TIC CENTE STIMJ UNATTENDE D CHIROPRAC 38014 NALLELY COLÓN TIC 1 KHOA MANIPLTV CHIROPRAC TX TIC CENTE EXTRASPIN AL 1/> REGION CHIROPRAC 21507 NALLELY COLÓN TIC 1 KHOA MANIPLTV CHIROPRAC TX TIC CENTE EXTRASPIN AL 1/> REGION APPL 11071 NALLELY COLÓN MODALITY 1 KHOA 1/> AREAS CHIROPRAC ELEC TIC CENTE STIMJ UNATTENDE D APPL 09068 NALLELY COLÓN MODALITY 1 KHOA 1/> AREAS CHIROPRAC TRACTION TIC CENTE MECHANICA L CHIROPRAC 07448 NALLELY COLÓN TIC 1 KHOA MANIPULAT CHIROPRAC BEATRIZ TX TIC CENTE SPINAL 3-4 REGIONS APPLICATI 73583 NALLELY COLÓN ON 1 KHOA MODALITY CHIROPRAC 1/> AREAS TIC CENTE HOT/COLD PACKS CHIROPRAC 91089 NALLELY COLÓN TIC 1 KHOA MANIPULAT CHIROPRAC BEATRIZ TX TIC CENTE SPINAL 3-4 REGIONS APPL 76576 NALLELY BROWNING MODALITY 1 1/> AREAS CHIROPRAC CHIROPRAC TRACTION TIC CENTE TIC CENTE MECHANICA L APPL 38434 NALLELY COLÓN MODALITY 1 KHOA 1/> AREAS CHIROPRAC ELEC TIC CENTE STIMJ UNATTENDE D CHIROPRAC 86173 NALLELY COLÓN TIC 1 KHOA MANIPLTV CHIROPRAC TX TIC CENTE EXTRASPIN AL 1/> REGION CHIROPRAC 74944 NALLELY COLÓN TIC 1 KHOA MANIPLTV CHIROPRAC TX TIC CENTE EXTRASPIN AL 1/> REGION APPL 09807 NALLELY COLÓN MODALITY 1 KHOA 1/> AREAS CHIROPRAC ELEC TIC CENTE STIMJ UNATTENDE D APPL 30050 NALLELY COLÓN MODALITY 1 KHOA 1/> AREAS CHIROPRAC TRACTION TIC CENTE MECHANICA L CHIROPRAC 57071 NALLELY COLÓN TIC 1 KHOA MANIPULAT CHIROPRAC BEATRIZ TX TIC CENTE SPINAL 3-4 REGIONS APPLICATI 24326 NALLELY COLÓN ON 1 KHOA MODALITY CHIROPRAC 1/> AREAS TIC CENTE HOT/COLD PACKS APPLICATI 89794 NALLELY COLÓN ON 1 KHOA MODALITY CHIROPRAC 1/> AREAS TIC CENTE HOT/COLD PACKS RADEX 87360 NALLELY COLÓN SPINE 1 KHOA LUMBOSACR CHIROPRAC AL 2/3 TIC CENTE VIEWS CHIROPRAC 20920 NALLELY COLÓN TIC 1 KHOA MANIPULAT CHIROPRAC BEATRIZ TX TIC CENTE SPINAL 3-4 REGIONS APPL 83641 NALLELY COLÓN MODALITY 1 KHOA 1/> AREAS CHIROPRAC TRACTION TIC CENTE MECHANICA L APPL 12329 NALLELY COLÓN MODALITY 1 KHOA 1/> AREAS CHIROPRAC ELEC TIC CENTE STIMJ UNATTENDE D CHIROPRAC 32056 NALLELY COLÓN TIC 1 KHOA MANIPLTV CHIROPRAC TX TIC CENTE EXTRASPIN AL 1/> REGION THERAPEUT 55828 ANA ANA IC PX 1/> 1 [facility]AS INC INC EACH 15 MIN EXERCISES THERAPEUT 52344 ANA ANA IC PX 1/> 1 [facility]AS INC INC EACH 15 MIN EXERCISES THERAPEUT 53926 ANA ANA IC PX 1/> 1 [facility] AREAS INC INC EACH 15 MIN EXERCISES THERAPEUT 48712 ANA ANA IC PX 1/> 1 [facility] INC INC EACH 15 MIN EXERCISES PHYSICAL 72970 [facility] 1 [facility] EVALUATIO INC INC N RADIOLOGI 38422 [facility] C EXAM 0 Y Y [facility] COMPL MINIMUM 3 VIEWS RADEX 03896 [facility] WRIST 0 [facility] MINIMUM 3 VIEWS RADEX 51964 [facility] ANKLE 0 Y Y COMPLETE [facility] MINIMUM 3 VIEWS STANDARD K0001 [facility] WHEELCHAI 0 HOME HOME R CARE, INC CARE, INC MNL E0971 [facility] WHEELCHAI 0 HOME HOME R CARE, INC CARE, INC ACCESSORY ANTI-TIPP ING DEVC EACH MANUAL E0961 [facility] WHEELCHAI 0 HOME HOME R ACCESS CARE, INC CARE, INC WHEEL LOCK BRAKE EXT EA RAD[facility]OLOGI 59542 [facility] COMPL MINIMUM 3 VIEWS RADEX 54753 [facility] MINIMUM 3 VIEWS RADEX 41416 [facility]LE [facility] MINIMUM 3 VIEWS STANDARD K0001 [facility] WHEELCHAI 0 HOME HOME R CARE, INC CARE, INC MNL E0971 [facility]ER WHEELCHAI 0 HOME HOME R CARE, INC CARE, INC ACCESSORY ANTI-TIPP ING DEVC EACH MANUAL E0961 [facility] WHEELCHAI 0 HOME HOME R ACCESS CARE, INC CARE, INC WHEEL LOCK BRAKE EXT EA RADIOLOGI 55710 [facility] EXAM 0 Y [facility] COMPL MINIMUM 3 VIEWS RADEX 32201 [facility] MINIMUM 3 VIEWS DUP-SCAN 88539 [facility] XTR VEINS 0 Y Y HOSPITAL HOSPITAL UNILATERA L/LIMITED STUDY N-INVAS 20582 [place] AYOOB AND PHYSIOLOG 0 MEDICAL IC STD [...] INC WHEEL LOCK BRAKE EXT EA HOSPITAL 04520 [place] [facility] 0 MEDICAL GINGER DAY SERV MANAGEMEN FOUNDATIO T 30 MIN/< SBSQ 84247 [facility] 0 MEDICAL NAN CARE/DAY SERV 25 FOUNDATIO MINUTES SBSQ 96002 [facility] 0 MEDICAL R MINDI CARE/DAY SERV 25 FOUNDATIO MINUTES DUP-SCAN 38102 ALPHONSO ALPHONSO XTR VEINS 0 KESHAWN KESHAWN COMPLETE BILATERAL STUDY SBSQ 38787 [facility] 0 MEDICAL R MINDI CARE/DAY SERV 25 FOUNDATIO MINUTES SBSQ 74582 [facility] 0 MEDICAL R MINDI CARE/DAY SERV 25 FOUNDATIO MINUTES RADEX 35067 [place] [facility] 0 MEDICAL JT 1 VIEW SERV FOUNDATIO SBSQ 22409 [facility] 0 MEDICAL R MINDI CARE/DAY SERV 25 FOUNDATIO MINUTES SBSQ 50501 [facility] 0 MEDICAL NAN CARE/DAY SERV 25 FOUNDATIO MINUTES SBSQ 59897 [facility] 0 MEDICAL NAN CARE/DAY SERV 25 FOUNDATIO MINUTES HOSPITAL 03487 [place] [facility] 0 MEDICAL SAURAV DAY SERV MANAGEMEN FOUNDATIO T 30 MIN/< INITIAL 08813 [place] [facility] 0 MEDICAL R MINDI CARE/DAY SERV 50 FOUNDATIO MINUTES GROUND A0425 MERCURYAM MERCURYAM MILEAGE 0 BULAN CE BULAN CE PER SVC SVC STATUTE MILE RADEX 20995 [place] [facility] 0 MEDICAL COMPLETE SERV MINIMUM 3 FOUNDATIO VIEWS SBSQ 04545 [facility] 0 MEDICAL SAURAV CARE/DAY SERV 15 FOUNDATIO MINUTES RADEX 48833 [place] [facility] WRIST 2 0 MEDICAL GERSON VIEWS SERV FOUNDATIO SBSQ 87229 [facility] 0 MEDICAL SAURAV CARE/DAY SERV 15 FOUNDATIO MINUTES SBSQ 40957 [facility] 0 MEDICAL SAURAV CARE/DAY SERV 15 FOUNDATIO MINUTES SBSQ 00790 [facility] 0 MEDICAL SAURAV CARE/DAY SERV 15 FOUNDATIO MINUTES RADEX 83109 [place] [facility] 0 MEDICAL COMPLETE SERV MINIMUM 2 FOUNDATIO VIEWS PERQ 91353 [place] GUTIERREZ SKELETAL 0 MEDICAL RAY FIXATION SERV PST FOUNDATIO PELVIC BONE FX&/DIS ANESTHESI 05585 [place] YUKOELL A ON BONY 0 MEDICAL EUGEN E PELVIS SERV FOUNDATIO RADIOLOGI 29316 [place] TRENT JAM C EXAM 0 MEDICAL PELVIS SERV COMPL FOUNDATIO MINIMUM 3 VIEWS OPTX ANT 30395 [place] MATT PELVIC 0 MEDICAL RAY BONE SERV FX&/DISLC FOUNDATIO INT FIXJ IF PFR CT PELVIS 04568 [place] TW[place] SHORT W/O 0 MEDICAL CONTRAST SERV MATERIAL FOUNDATIO RADEX 77440 [place] [facility] 0 MEDICAL COMPLETE SERV MINIMUM 2 FOUNDATIO VIEWS INITIAL 05943 [place] [facility] INPATIENT 0 MEDICAL LIZBETH CONSULT SERV NEW/ESTAB FOUNDATIO PT 20 MIN DBRDMT 25426 [place] GUTIERRE[place] FX&/DISLC 0 MEDICAL RAY SUBQ SERV T/M/[place] [address] [place] MATT DISTAL 0 MEDICAL RAY FIBULAR SERV FRACTURE FOUNDATIO LAT MALLEOLUS ANES OPEN 36126 [place] REYMANN PROC 0 MEDICAL PAUL BONES SERVICES LOWER LEG/ANKLE /FOOT NOS INITIAL 34531 [place] [facility] 0 MEDICAL CLARKE CARE/DAY SERV 70 FOUNDATIO MINUTES RADIOLOGI 85845 [place]TI[place] C 0 MEDICAL GERSON EXAMINATI SERV ON CHE[place] [address] [place] MUSE THORACIC 0 MEDICAL DYLON SPINE W/O SERV CONTRAST FOUNDATIO MATERIAL NJX 56870 [place] RETROGRAD 0 MEDICAL GERSON E SERV URETHROCS FOUNDATIO TOGRAPY RADIOLOGI 32240 [place] [facility] C EXAM 0 MEDICAL GERSON PELVIS SERV COMPL [place]OUNDAT[place] [address] [place] [address] [place] UMSE CERVICAL 0 MEDICAL D[place] SPINE W/[place] [address] [place] LOWERY ABDOMEN 0 MEDICAL BEBA W/CONTRAS SERV T FOUNDATIO MATERIAL URETHROCY 05167 [place] STOGRAPHY 0 MEDICAL GERSON SERV RETROGRAD FOUNDATIO E RS&I RADEX 93714 [place] FOOT 0 MEDICAL GERSON COMPLETE SERV MINIMUM 3 FOUNDATIO VIEWS RADEX 21764 [place] SHOULDER 0 MEDICAL GERSON COMPLETE SERV MINIMUM 2 FOUNDAT[place] VIEWS RADIOLOGI 95970 [place] C 0 MEDICAL GERSON EXAMINATI SERV ON TIBIA FOUNDATIO & FIBULA [address] LUMBAR [address]68 [place] MUSE SPINE 0 MEDICAL DYLON W/O SERV CONTRAST FOUNDATIO MATERIAL RADIOLOGI 08050 [place]TI[place] C 0 MEDICAL GERSON EXAMINATI SERV ON PELVIS FOUNDATIO 1/2 VIEWS ECG 44809 [place] JORI C ROUTINE 0 MEDICAL ECG SERV W/LEAST FOUNDATIO 12 LDS I&R ONLY CT PELVIS 09954 [place] ATTILI W/O & 0 MEDICAL ANI W/CONTRAS SERV T FOUNDATIO MATERIAL RADEX 60756 [place] ANKLE 0 MEDICAL GERSON COMPLETE SERV MINIMUM 3 FOUNDATIO VIEWS AMB [id number] PETROLEUM PETROLEUM SERVICE 0 CONVNTION HELICOPTE HELICOPTE AIR SRVC RS INC INC TRANSPORT [address] Encounters Encounter Start End Date Code Location Performer Type Date OFFICE 28104 [place] [facility] OUTPATIEN 7 7 MEDICAL T VISIT SERV 15 FOUNDATIO MINUTES N OFFICE 77207 [place] OUTPATIEN 6 6 MEDICAL T VISIT SERV 15 FOUNDATIO MINUTES N OFFICE 84573 [place] SCO OUTPATIEN 6 6 MEDICAL T VISIT SERV 15 FOUNDATIO MINUTES N OFFICE 24300 [place] S[place] OUTPATIEN 6 6 MEDICAL T VISIT SERV 25 FOUNDATIO MINUTES N OFFICE 32461 [place] [facility]ANI[place] S[facility] OUTPATIEN 6 6 MEDICAL T VISIT SERV 15 FOUNDATIO MINUTES [facility]OSPITAL ANA - 6 6 [facility] 6 6 [facility] A[facility] - 6 6 [facility] ANA [facility] 5 5 [facility] [address] [facility] - [facility] 5 [facility] T OFFICE 37018 SUNNI MOELLER OUTPATIEN 5 5 NANCY NANCY T VISIT 15 MINUTES OFFICE 38752 DAVE DANIEL SCO OUTPATIEN 5 5 MEDICAL T VISIT SERV 25 FOUNDATIO MINUTES N OFFICE 02392 [place] [facility] 5 5 MEDICAL T VISIT SERV 15 FOUNDATIO MINUTES N OFFICE 73668 DAVE DANIEL SCO OUTPATIEN 5 5 MEDICAL T VISIT SERV 25 FOUNDATIO MINUTES N HOSPITAL UNIVERSIT - 5 5 Y [facility] T OFFICE 83864 DAVE DANIEL SCO OUTPATIEN 5 5 MEDICAL T VISIT SERV 15 FOUNDATIO MINUTES N OFFICE 91539 DAVE DANIEL SCO OUTPATIEN 5 5 MEDICAL T VISIT SERV 15 FOUNDATIO MINUTES N EMERGENCY 18250 NEAL PULIDO 4 4 EMERGENCY DEPARTMEN SERVICES T VISIT MODERATE SEVERITY OFFICE 60226 SUNNI MOELLER OUTPATIEN 4 4 NANCY NANCY T VISIT 40 MINUTES OFFICE 54016 DAVE DANIEL SCO OUTPATIEN 3 3 MEDICAL T VISIT SERV 25 FOUNDATIO MINUTES N OFFICE 88411 DAVE SANCHEZ SCO OUTPATIEN 3 3 MEDICAL T VISIT SERV 25 FOUNDATIO MINUTES EMERGENCY 08885 ANA 3 3 [facility] DEPARTMEN INC T VISIT LOW/MODER SEVERITY HOSPITAL ANA - 3 3 [facility] OUTPATIEN INC T EMERGENCY 07928 NEAL PHILIPPE 3 3 EMERGENCY DEPARTMEN SERVICES T VISIT MODERATE SEVERITY OFFICE 68233 DEWEY HAM DEWEY HAM OUTPATIEN 2 2 T VISIT 15 MINUTES OFFICE 36733 DEWEY HAM [facility]AM OUTPATIEN 2 2 T NEW 45 MINUTES OFFICE 89893 SUNNI MOELLER OUTPATIEN 2 2 NANCY NANCY T VISIT 15 MINUTES OFFICE 27459 DAVE ALVAREZN OUTPATIEN 2 2 MEDICAL MAGAN T VISIT SERV [facility] T OFFICE 06292 DAVE GUTIERREZ OUTPATIEN 2 2 [place] [place] T VISIT SERV 15 [facility] UNIVERSIT - 2 2 Y [facility] T OFFICE 61402 DAVE SANCHEZ SAADO OUTPATIEN 2 2 MEDICAL T VISIT SERV 25 FOUNDATIO MINUTES OFFICE 56453 DAVE DANIEL [facility] 2 2 MEDICAL T VISIT SERV 25 [facility] ANA - 2 2 [facility] [place] 74123 DAVE DANIEL RAMIREZ OUTPATIEN 1 1 MEDICAL T VISIT SERV 15 FOUNDATIO MINUTES OFFICE 53473 DAVE MACKWAN [facility] 1 1 MEDICAL MAGAN T VISIT SERV 15 [facility] UNIVERSIT - 1 1 [facility] T OFFICE 79889 DAVE SANCHEZ JAMES OUTPATIEN 1 1 MEDICAL T VISIT SERV 25 FOUNDATIO MINUTES OFFICE 81930 DAVE MATT OUTPATIEN 1 1 [place] T VISIT SERV 10 [facility] UNIVERSIT - 1 1 [facility] T OFFICE 82416 DAVE MATT OUTPATIEN 1 1 MEDICAL [place] T VISIT SERV 15 [facility] UNIVERSIT - 1 1 [facility] T OFFICE 41910 NALLELY COLÓN OUTPATIEN 1 1 [facility] T NEW 30 CHIROPRAC MINUTES [facility]IC CENTE OFFICE 51145 ARNOLD ARNOLD OUTPATIEN 1 1 NANCY NANCY T NEW 30 MINUTES [facility] ANA - 1 1 [facility] OFF[facility] 78758 DAVE [facility]UTIERREZ OUTPATIEN 1 1 MEDICAL [place] T VISIT SERV 15 FOUNDATIO MINUT[facility] UNIVERSIT - 0 0 Y [facility] UNIVERS[facility] - 0 0 Y [facility] - 0 0 Y [facility] UNIVERS[facility] - [address] [facility] EMERGENCY 06432 DAVE MOORE [address] [facility] T VISIT FOUNDATIO MODERATE SEVERITY EMERGENCY 81812 UNIVERSIT 0 0 Y [facility] T VISIT LOW/MODER SEVERITY EMERGENCY 69022 DAVE IRELAND DEPT 0 0 MEDICAL KHOA VISIT SERV HIGH FOUNDATIO SEVERITY& THREAT FUNCJ
--- OUTSIDE RECORDS SUMMARY | 2017-07-15 07:32 | External Medical Summary Rpt ---
Demographics Preferred Language [place] Marital Status Unknown Nondenominational Affiliation Unknown Race Unknown Ethnic Group Unknown Author Author LY Address Unknown Phone Immunization No patient found.
--- OUTSIDE RECORDS SUMMARY | 2017-07-15 07:32 | External Medical Summary Rpt ---
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 Y Hold specimen in OE? N Clindamyc No ug/ml Susceptib No Jun 28 in informati le informati 2016 7:57 [Suscepti on in on in AM bility] source source by data data Minimum inhibitor y concentra tion (BEBA) Erythromy No ug/ml Resistant No Jun 28 ibeth informati informati 2016 7:57 [Suscepti on in on in AM bility] source source by data data Minimum inhibitor y concentra tion (BEBA) Nitrofura No ug/ml Susceptib No Jun 28 ntoin informati le informati 2016 7:57 [Suscepti on in on in AM bility] source source by data data Minimum inhibitor y concentra tion (BEBA) Gentamici No ug/ml Susceptib No Jun 28 n informati le informati 2016 7:57 [Suscepti on in on in AM bility] source source by data data Minimum inhibitor y concentra tion (BEBA) Levofloxa No ug/ml Resistant No Jun 28 ibeth informati informati 2016 7:57 [Suscepti on in on in AM bility] source source by data data Minimum inhibitor y concentra tion (BEBA) Oxacillin No ug/ml Resistant No Jun 28 informati informati 2017 7:57 [Suscepti on in on in AM bility] source source by data data Minimum inhibitor y concentra tion (BEBA) Penicilli No ug/ml Resistant No Jun 28 n G informati informati 2017 7:57 [Suscepti on in on in AM bility] source source by data data Minimum inhibitor y concentra tion (BEBA) Rifampin No ug/ml Susceptib No Jun 28 [Suscepti informati le informati 2016 7:57 bility] on in on in AM by source source Minimum data data inhibitor y concentra tion (BEBA) Trimethop No ug/ml Susceptib No Jun 28 rim+Sulfa informati le informati 2016 7:57 methoxazo on in on in AM le source source [Suscepti data data bility] by Minimum inhibitor y concentra tion (BEBA) Tetracycl No ug/ml Susceptib No Jun 28 ine informati le informati 2016 7:57 [Suscepti on in on in AM bility] source source by data data Minimum inhibitor y concentra tion (BEBA) Vancomyci No ug/ml Susceptib No Jun 28 n informati le informati 2016 7:57 [Suscepti on in on in AM bility] source source by data data Minimum inhibitor y concentra tion (BEBA) CBC W Auto Differential panel in Blood Observa Value Referen Units Interpr Notes Date tion ce etation Range Basophils 0 - 0.2 K/MM3 Normal No Jun 28 informati 2016 6:15 [#/volume on in AM ] in source Blood by data Automated count Basophils 0.1 - 2.0 % Normal No Jun 28 / informati 2017 6:15 leukocyte on in AM s in source Blood by data Automated count Eosinophi 0.0 - 0.4 K/mm3 High No Jun 28 ls informati 2016 6:15 [#/volume on in AM ] in source Blood by data Automated count Eosinophi 0.1 - % Normal No Jun 28 ls/100 12.0 informati 2016 6:15 leukocyte on in AM s in source Blood by data Automated count Granulocy 1.3 - 8.0 K/mm3 Normal No Jun 28 emilee informati 2016 6:15 [#/volume on in AM ] in source Blood by data Automated count Granulocy 37.0 - % Normal No Jun 28 emilee/100 80.0 informati 2016 6:15 leukocyte on in AM s in source Blood by data Automated count Hematocri 42.0 - % Low No Jun 28 t [Volume 52.0 informati 2017 6:15 on in AM Fraction] source of Blood data Hemoglobi 14.1 - g/dL Low No Jun 28 n 18.0 informati 2016 6:15 [Mass/vol on in AM ume] in source Blood data Lymphocyt 0.7 - 4.5 K/mm3 Normal No Jun 28 es informati 2016 6:15 [#/volume on in AM ] in source Unspecifi data ed specimen by Automated count Lymphocyt 10 - 50 % Normal No Jun 28 es informati 2016 6:15 [#/volume on in AM ] in source Unspecifi data ed specimen by Automated count Erythrocy 27 - 31.2 pg High No Jun 28 te mean informati 2016 6:15 corpuscul on in AM ar source hemoglobi data n [Entitic mass] Erythrocy 31.8 - g/dl Normal No Jun 28 te mean 35.4 informati 2016 6:15 corpuscul on in AM ar source hemoglobi data n concentra tion [Mass/vol ume] by Automated count Erythrocy 82.2 - fl Normal No Jun 28 te mean 97.8 informati 2016 6:15 corpuscul on in AM ar volume source [Entitic data volume] by Automated count Monocytes 0.1 - 1.0 K/mm3 Normal No Jun 28 informati 2017 6:15 [#/volume on in AM ] in source Blood by data Automated count Monocytes 1.7 - 9.3 % Normal No Jun 28 /100 informati 2017 6:15 leukocyte on in AM s in source Blood by data Automated count Platelet 7.4 - fl Normal No Jun 28 mean 10.4 informati 2017 6:15 volume on in AM [Entitic source volume] data in Blood by Automated count Platelets 142 - 424 K/mm3 Normal No Jun 28 informati 2017 6:15 [#/volume on in AM ] in source Blood data Erythrocy 4.6 - 6.2 M/mm3 Low No Jun 28 emilee informati 2017 6:15 [#/volume on in AM ] in source Amniotic data fluid Erythrocy 11.5 - % Normal No Jun 28 te 17.5 informati 2017 6:15 distribut on in AM ion width source [Entitic data volume] by Automated count Leukocyte 4.8 - K/MM3 No No Jun 28 s 10.8 informati informati 2017 6:15 [#/volume on in on in AM ] in source source Blood data data Vancomycin [Mass/volume] in Serum or Plasma --trough Observa Value Referen Units Interpr Notes Date tion ce etation Range Vancomyci 5.0 - mcg/mL High No Jun 27 n 10.0 informati 2016 [Mass/vol on in 12:57 PM ume] in source Serum or data Plasma --trough Comprehensive metabolic 2000 panel in Serum or Plasma Observa Value Referen Units Interpr Notes Date ti ce etation Range Albumin/G 1.1 - 1.8 No Low No Jun 26 lobulin informati informati 2016 6:30 [Mass on in on in AM ratio] in source source Serum or data data Plasma Albumin 3.4 - 5.0 gm/dL Low No Jun 26 [Mass/vol informati 2016 6:30 ume] in on in AM Serum or source Plasma data Alkaline 46 - 116 U/L Normal No Jun 26 phosphata informati 2016 6:30 se on in AM [Enzymati source c data activity/ volume] in Serum or Plasma Bilirubin 0.2 - 1.0 mg/dL Normal No Jun 26 .total informati 2016 6:30 [Mass/vol on in AM ume] in source Serum or data Plasma Urea 7 - 18 mg/dL Normal No Jun 26 nitrogen informati 2016 6:30 [Mass/vol on in AM ume] in source Serum or data Plasma Calcium 8.5 - mg/dL Normal No Jun 26 [Mass/vol 10.1 informati 2016 6:30 ume] in on in AM Serum or source Plasma data Chloride 98 - 107 mmoL/L Normal No Jun 26 [Moles/vo informati 2016 6:30 lume] in on in AM Serum or source Plasma data Carbon 21.0 - mmoL/L Normal No Jun 26 dioxide, 32.0 informati 2017 6:30 total on in AM [Moles/vo source lume] in data Serum or Plasma Creatinin 0.70 - mg/dL Normal No Jun 26 e 1.30 informati 2017 6:30 [Mass/vol on in AM ume] in source Serum or data Plasma Creatinin 50 - 200 ML/MIN Normal No Jun 26 e renal informati 2017 6:30 clearance on in AM source predicted data by Cockcroft -Gault formula Estimated >60 ML/MIN No REFERENCE Jun 26 informati RANGE: 2017 6:30 glomerula on in >60 AM r source ML/MIN/1. filtratio data 73 SQUARE n rate METERSIf (GF this patient is -A merican, then multiply theresult by 1.210. Globulin 1.3 - 3.2 gm/dL High No Jun 26 [Mass/vol informati 2016 6:30 ume] in on in AM Serum source data Glucose 74 - 106 mg/dL High No Jun 26 [Mass/vol informati 2016 6:30 ume] in on in AM Serum or source Plasma data Potassium 3.5 - 5.1 mmoL/L Normal No Jun 262016 6:30 [Moles/vo on in AM lume] in source Serum or data Plasma Sodium 136 - 145 mmoL/L Normal No Jun 26 [Moles/vo informati 2016 6:30 lume] in on in AM Serum or source Plasma data Aspartate 15 - 37 U/L Low No Jun 26 informati 2016 6:30 aminotran on in AM sferase source [Enzymati data c activity/ volume] in Serum or Plasma Alanine 12 - 78 U/L Normal No Jun 26 aminotran informati 2016 6:30 sferase on in AM [Enzymati source c data activity/ volume] in Serum or Plasma Protein 6.4 - 8.2 gm/dL Normal No Jun 26 [Mass/vol informati 2016 6:30 ume] in on in AM Serum or source Plasma data Bacteria identified in Abscess by Aerobe culture Observa Value Referen Units Interpr Notes Date tion ce etation Range Collected by nurse? Y Hold specimen in OE? N Bacteri Staphyl No No No No Jun 25 a ococcus informa informa informa informa 2016 identif aureus tion in tion in tion in tion in 3:08 PM ied in source source source source Abscess data data data data by Aerobe culture Creatine kinase [Enzymatic activity/volume] in Serum or Plasma Observa Value Referen Units Interpr Notes Date tion ce etation Range Creatine 39 - 308 U/L Normal No Jun 25 kinase informati 2016 [Enzymati on in 11:40 AM c source activity/ data volume] in Serum or Plasma PT & aPTT panel in Platelet poor plasma by Coagulation assay Observa Value Referen Units Interpr Notes Date tion ce etation Range INR in 0.9 - 1.1 No Normal INDICATIO Jun 25 Blood by informati N 2017 Coagulati on in 11:40 AM on assay source INR data RANGETHER APY FOR DVT, PE, ATRIAL FIB; 2.0 - 3.0PROPHY LAXIS FOR VTETHERAP Y FOR MECHANICA L HEART 2.5 - 3.5VALVE; PREVENTIO N OF SYSTEMICE MBOLISM SECONDARY TO AMI Prothromb 9.4 - SECONDS Normal No Jun 25 in time 11.8 informati 2016 (PT) in on in 11:40 AM Platelet source poor data plasma by Coagulati on assay Activated 23.6 - SECONDS Normal No Jun 25 partial 34.0 informati 2016 thrombpla on in 11:40 AM stin time source (aPTT) data in Platelet poor plasma by Coagulati on assay Comprehensive metabolic 2000 panel in Serum or Plasma Observa Value Referen Units Interpr Notes Date tion ce etation Range Albumin/G 1.1 - 1.8 No Low No Jun 25 lobulin informati informati 2016 [Mass on in on in 11:40 AM ratio] in source source Serum or data data Plasma Albumin 3.4 - 5.0 gm/dL Normal No Jun 25 [Mass/vol informati 2017 ume] in on in 11:40 AM Serum or source Plasma data Alkaline 46 - 116 U/L Normal No Jun 25 phosphata informati 2016 se on in 11:40 AM [Enzymati source c data activity/ volume] in Serum or Plasma Bilirubin 0.2 - 1.0 mg/dL High No Jun 25 .total informati 2016 [Mass/vol on in 11:40 AM ume] in source Serum or data Plasma Urea 7 - 18 mg/dL Normal No Jun 25 nitrogen informati 2016 [Mass/vol on in 11:40 AM ume] in source Serum or data Plasma Calcium 8.5 - mg/dL Normal No Jun 25 [Mass/vol 10.1 informati 2016 ume] in on in 11:40 AM Serum or source Plasma data Chloride 98 - 107 mmoL/L Normal No Jun 25 [Moles/vo informati 2016 lume] in on in 11:40 AM Serum or source Plasma data Carbon 21.0 - mmoL/L Normal No Jun 25 dioxide, 32.0 informati 2016 total on in 11:40 AM [Moles/vo source lume] in data Serum or Plasma Creatinin 0.70 - mg/dL Normal No Jun 25 e 1.30 informati 2016 [Mass/vol on in 11:40 AM ume] in source Serum or data Plasma Creatinin 50 - 200 ML/MIN Normal No Jun 25 e renal inform2016 clearance on in 11:40 AM source predicted data by Cockcroft -Gault formula Estimated >60 ML/MIN No REFERENCE Jun 25 informati RANGE: 2017 glomerula on in >60 11:40 AM r source ML/MIN/1. filtratio data 73 SQUARE n rate METERSIf (GF this patient is -A merican, then multiply theresult by 1.210. Globulin 1.3 - 3.2 gm/dL High No Jun 25 [Mass/vol informati 2016 ume] in on in 11:40 AM Serum source data Glucose 74 - 106 mg/dL Normal No Jun 25 [Mass/vol informati 2016 ume] in on in 11:40 AM Serum or source Plasma data Potassium 3.5 - 5.1 mmoL/L Normal No Jun 252016 [Moles/vo on in 11:40 AM lume] in source Serum or data Plasma Sodium 136 - 145 mmoL/L Normal No Jun 25 [Moles/vo informati 2016 lume] in on in 11:40 AM Serum or source Plasma data Aspartate 15 - 37 U/L Normal No Jun 252016 aminotran on in 11:40 AM sferase source [Enzymati data c activity/ volume] in Serum or Plasma Alanine 12 - 78 U/L Normal No Jun 25 aminotran inform2016 sferase on in 11:40 AM [Enzymati source c data activity/ volume] in Serum or Plasma Protein 6.4 - 8.2 gm/dL High No Jun 25 [Mass/vol informati 2016 ume] in on in 11:40 AM Serum or source Plasma data Lactate [Moles/volume] in Blood Observa Value Referen Units Interpr Notes Date tion ce etation Range Lactate 0.4 - 2.0 mmol/L Normal No Jun 25 [Moles/vo informati 2016 lume] in on in 11:40 AM Blood source data CBC W Auto Differential panel in Blood Observa Value Referen Units Interpr Notes Date tion ce etation Range Basophils 0 - 0.2 K/MM3 Normal No Jun 25 inform2016 [#/volume on in 11:40 AM ] in source Blood by data Automated count Basophils 0.1 - 2.0 % Normal No Jun 25 inform2016 leukocyte on in 11:40 AM s in source Blood by data Automated count Eosinophi 0.0 - 0.4 K/mm3 Normal No Jun 25 ls informati 2016 [#/volume on in 11:40 AM ] in source Blood by data Automated count Eosinophi 0.1 - % Normal No Jun 25 ls/100 12.0 informati 2016 leukocyte on in 11:40 AM s in source Blood by data Automated count Granulocy 1.3 - 8.0 K/mm3 High No Jun 25 emilee inform2016 [#/volume on in 11:40 AM ] in source Blood by data Automated count Granulocy 37.0 - % Normal No Jun 25 emilee/ 80.0 informati 2016 leukocyte on in 11:40 AM s in source Blood by data Automated count Hematocri 42.0 - % Normal No Jun 25 t [Volume 52.0 informati 2016 on in 11:40 AM Fraction] source of Blood data Hemoglobi 14.1 - g/dL Normal No Jun 25 n 18.0 informati 2016 [Mass/vol on in 11:40 AM ume] in source Blood data Lymphocyt 0.7 - 4.5 K/mm3 Normal No Jun 25 es informati 2016 [#/volume on in 11:40 AM ] in source Unspecifi data ed specimen by Automated count Lymphocyt 10 - 50 % Normal No Jun 25 es 2016 [#/volume on in 11:40 AM ] in source Unspecifi data ed specimen by Automated count Erythrocy 27 - 31.2 pg High No Jun 25 te mean 2016 corpuscul on in 11:40 AM ar source hemoglobi data n [Entitic mass] Erythrocy 31.8 - g/dl Normal No Jun 25 te mean 35.4 2016 corpuscul on in 11:40 AM ar source hemoglobi data n concentra tion [Mass/vol ume] by Automated count Erythrocy 82.2 - fl Normal No Jun 25 te mean 97.8 2016 corpuscul on in 11:40 AM ar volume source [Entitic data volume] by Automated count Monocytes 0.1 - 1.0 K/mm3 High No Jun 25 inform2016 [#/volume on in 11:40 AM ] in source Blood by data Automated count Monocytes 1.7 - 9.3 % Normal No Armando 25 /100 informati 2016 leukocyte on in 11:40 AM s in source Blood by data Automated count Platelet 7.4 - fl Normal No Jun 25 mean 10.4 2016 volume on in 11:40 AM [Entitic source volume] data in Blood by Automated count Platelets 142 - 424 K/mm3 Normal No Jun 25 informati 2016 [#/volume on in 11:40 AM ] in source Blood data Erythrocy 4.6 - 6.2 M/mm3 Normal No Jun 25 emilee informati 2016 [#/volume on in 11:40 AM ] in source Amniotic data fluid Erythrocy 11.5 - % Normal No Jun 25 te 17.5 informati 2016 distribut on in 11:40 AM ion width source [Entitic data volume] by Automated count Leukocyte 4.8 - K/MM3 High No Jun 25 s 10.8 informati 2016 [#/volume on in 11:40 AM ] in source Blood data
--- OUTSIDE RECORDS SUMMARY | 2017-07-15 07:32 | External Medical Summary Rpt ---
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
--- OUTSIDE RECORDS SUMMARY | 2017-07-15 07:32 | External Medical Summary Rpt ---
Demographics Preferred Language [place] Marital Status Unknown Moravian Affiliation Unknown Race Unknown Ethnic Group Unknown Author Author LY Address Unknown Phone Immunization No patient found.
--- NOTE | 2017-07-15 07:50 | Emergency Room Report ---
History of Present Illness Time Seen by 0714 Presenting Problem in Triage Pt arrived:Walked Presenting Problem:PT C/O OF SWELLING, PAIN AND REDNESS AT HIS WOUND VAC SITE ON HIS LEFT CALF THAT HAS BEEN MONITORING FOR 2 WEEKS R/T CONCRETE POISONING. 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 N Clinical Suspician of Infection? Y Mental Status: 1 - Regular (Normal Baseline) Sepsis Risk:Low Sepsis Risk Have you (or family members/close friends) recently traveled outside the [place]? N If Yes, where/when: Have you had exposure to infectious disease within the past month? N TB? Other? Specify: Source patient, RN notes reviewed, family, RN/MD Exam Limitations no limitations Comment This is a 56-year-old male patient arriving to the emergency room with LEFT leg pain, LEFT leg redness, worse over the past 2 days. Patient was initially seen on 06/22 for "concrete poisoning" of his LEFT leg, and diagnosed with an abscess and taken to the operating room by the general surgeon (Dr. Clemens). . He had the wound VAC (still using it), and he was on no antibiotic coverage, (which was discontinued just recently). Patient has any fever, any trauma to his LEFT leg. He advised that the pain is now significantly worse, unbearable. ALLERGIES Coded Allergies: No Known Allergies (06/28/17) Home Medications Reported Medications No Home Medications (NO HOME MEDICATIONS) 1 EACH XX ONCE History Medical History General CAD? No Angina: No GA: No Hypertension? Yes Hyperlipidemia? No CHF? No DVT? No PE? No COPD? No Asthma? No Anemia? No GERD? No Gastric ulcers? No GI Bleed? No Hernia? No Thyroid Problems? No Hypothyroidism? No CVA? No Seizures? No Diabetes? No Renal Insuffiency? No End Stage Renal Disease? No UTI? No Stones? No BPH? No GB Disease: No Nephritic Syndrome? No Asplenia? No Hepatitis? No Sickle Cell Disease? No Arthritis? No Migraines? No Cataracts? No Glaucoma? No MRSA? No HIV? No TB? No Anxiety? No Depression? No Cancer? No More? No Immunization Hx DT/Tetanus > 10 YRS Pneumonia Refuses Surgical Hx Previous Surgery?Y PELVIS LEFT ANKLE RIGHT SHOULDER URETHRA Social History Smoking Hx Smoker: Current Some Day Smoker Tobacco: Yes Type Cigars Packs/day N/A Alcohol Alcohol: Yes Review of Systems All Other Systems Reviewed and Negative Musculoskeletal muscle pain (left calf pain) Physical Exam Vital Signs Vital Signs Date Time Temp Pulse Resp B/P Pulse O2 O2 Flow FiO2 Ox Delivery Rate 07/15 0913 58 18 156/106 96 07/15 0838 18 07/15 0742 18 07/15 0716 97.6 71 18 157/99 96 General Appearance normal appearance, WD/WN, moderate distress Respiratory Status Yes: trachea midline, chest symmetrical, non tender chest. No: respiratory distress. Lung Sounds bilateral: normal breath sounds, lungs clear. 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 No Comment 08:30am - case discussed with general surgeon, Dr. Clemens, as the patient's presentation. The general surgeon recommended to have venous Doppler ultrasound of the LEFT lower extremity in order to rule out a DVT, performed before any further workup. 09:30am-case discussed again with the general surgeon, together with Amber from wound care / PT, advised the patient's increase in the LEFT Side, increased pain, increased redness, consistent with a possible reaction reevaluation of the LEFT calf abscess. Dr lCemens recommended the patient to be admitted to medical service, and start him on vancomycin plus gentamicin. 09:55am - case discussed with Dr. Fisher, advised of the above, agreeable with this admission, as well as management. Care transferred to Dr. Fisher at this time. I will write Stemper, bridge, admission of this per hospital protocol. Upon patient's presentation to the floor, they units nurse will contact PCP/surgeon noticed to obtain full inpatient admission orders. Results/Orders Laboratory Tests 07/15/17 0809: Sodium 139, Potassium 4.1, Chloride 103, Carbon Dioxide 31, BUN 6 L, Creatinine 0.7 L, Estimated Creat Clear 142, Estimated GFR (MDRD) 117, Glucose 95, Calcium 8.8, Total Bilirubin 0.6, AST 20, ALT 35, Alkaline Phosphatase 77, Total Protein 7.6, Albumin 3.5, Globulin 4.1 H, Albumin/Globulin Ratio 0.9 L, WBC 6.0, RBC 5.22, Hgb 16.2, Hct 48.0, MCV 91.9, RDW 12.2, Plt Count 280, MPV 7.9, Gran % 44.8, Gran # 2.7, Lymphocytes % 36.2, Monocytes % 9.0, Eosinophils % 9.1, Basophils % 0.9, Lymphocytes # 2.2, Monocytes # 0.5, Eosinophils # 0.6 H, Basophils # 0.1, PUBS MCHC 34.0, MCH 31.3 H Current Medication Orders Sig/Luis Start time Last Medication Dose Route Stop Time Status Admin Gentamicin Sulfate 420 MG ONCE ONE 07/15 1000 CKD Sodium Chloride 100 ML IV 07/15 1059 Vancomycin HCl 1,750 MG ONCE ONE 07/15 1000 CKD Sodium Chloride 250 ML IV 07/15 1159 Miscellaneous 1 EACH CONSULT PHARMACY 07/15 0945 AC Information * 07/15 2139 Miscellaneous 1 EACH CONSULT PHARMACY 07/15 0945 AC Information * 07/15 2141 Morphine Sulfate 0 .STK-MED ONE 07/15 0837 DC .ROUTE Morphine Sulfate 4 MG ONCE ONE 07/15 0830 DC 07/15 IV 07/15 0831 0838 Morphine Sulfate 4 MG ONCE ONE 07/15 0745 DC 07/15 IV 07/15 0746 0742 Ondansetron HCl 4 MG ONCE ONE 07/15 0745 DC 07/15 IV 07/15 0746 0742 Morphine Sulfate 0 .STK-MED ONE 07/15 0739 DC .ROUTE Ondansetron HCl 0 .STK-MED ONE 07/15 0739 DC .ROUTE Orders Procedure Date/time Status Decision to admit 07/15 0945 Active VENOUS LOWER EXT LT 07/15 0753 Complete LACTIC ACID 07/15 0753 Active CBC WITH AUTO DIFF 07/15 0753 Complete CHEM 12 PROFILE 07/15 753 Complete Departure Departure Time of Disposition 0954 Disposition Still a Patient Clinical Impression Primary Impression: Abscess of left leg Condition STABLE ED Critical Care Critical Care No at 1029
[2017-07-15 08:12] LABS: LYMPH # 2.2 K/mm3 (0.7-4.5); LYMPH % 36.2 % (10-50)
[2017-07-15 08:19] LABS: HEMOGLOBIN 16.2 g/dL (14.1-18.0)
--- NOTE | 2017-07-15 09:54 | CARDIOVASCULAR REPORT ---
"Venous Exam Indications: 729.5 Pain in limb. 782.3 Edema. IMPRESSIONS 1. There is no evidence of significant Reflux. 2. No evidence of deep or superficial vein thrombosis involving the left lower extremity History: Risk factors: Current tobacco use. Recent surgery: 06/28/17 L calf debridment, abcess with necrotizing soft tissue, has a wound vac and a PICC line. Left lower extremity venous duplex evaluation. Doppler flow study including spectral analysis, color and evangelista scale imaging. Location: Vascular laboratory. Patient status: Outpatient. Tables: Venous flow and imaging: + +-------+ + |Location |Overall|Flow properties | + +-------+ + |Left common femoral |Patent |Normal phasicity; spontaneous; | | | |normal augmentation; compressible | + +-------+ + |Left saphenofemoral junction|Patent |Compressible | + +-------+ + |Left profunda femoral |Patent |Compressible | + +-------+ + |Left femoral |Patent |Normal phasicity; spontaneous; | | | |normal augmentation; compressible | + +-------+ + |Left greater saphenous |Patent |Normal phasicity; spontaneous; | | | |normal augmentation; compressible | + +-------+ + |Left popliteal |Patent |Normal phasicity; spontaneous; | | | |normal augmentation; compressible | + +-------+ + |Left posterior tibial |Patent |Compressible | + +-------+ + |Left peroneal |Patent |Compressible | + +-------+ + |Left gastrocnemius |Patent |Compressible | + +-------+ + |Left soleal |Patent |Compressible | + +-------+ + (Report amended ) Electronically signed by: Jama Henry [id number]"
--- OUTSIDE RECORDS SUMMARY | 2017-07-15 10:08 | External Medical Summary Rpt ---
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 MODALITY CHIROPRAC 1/> AREAS TIC CENTE HOT/COLD PACKS APPL 08819 NALLELY COLÓN MODALITY 1 [facility] 1/> AREAS CHIROPRAC TRACTION TIC CENTE MECHANICA L CHIROPRAC 36593 NALLELY COLÓN TIC 1 [facility] MANIPULAT CHIROPRAC BEATRIZ TX TIC CENTE SPINAL 3-4 REGIONS CHIROPRAC 33136 NALLELY COLÓN TIC 1 [facility] MANIPLTV CHIROPRAC TX TIC CENTE EXTRASPIN AL 1/> REGION APPL 56674 NALLELY COLÓN MODALITY 1 K[facility] 1/> AREAS CHIROPRAC ELEC TIC CENTE STIMJ UNATTENDE D APPL 30666 CYNSEANANA KATARZYNA MODALITY 1 KHOA 1/> AREAS CHIROPRAC ELEC TIC CENTE STIMJ UNATTENDE D CHIROPRAC 70278 NALLELY COLÓN TIC 1 [facility] MANIPLTV CHIROPRAC TX TIC CENTE EXTRASPIN AL > REGION CHIROPRAC 90674 NALLELY COLÓN TIC 1 [facility] MANIPULAT CHIROPRAC BEATRIZ TX TIC CENTE SPINAL 3-4 REGIONS APPL 40384 NALLELY COLÓN MODALITY 1 KHOA 1/> AREAS CHIROPRAC TRACTION TIC CENTE MECHANICA L APPLICATI 00423 NALLELY COLÓN ON 1 [facility] MODALITY CHIROPRAC 1/> AREAS TIC CENTE HOT/COLD PACKS NEUROPLAS 77852 [place] [facility] TY 1 MEDICAL MAGAN &/TRANSPO SERV S MEDIAN FOUNDATIO NRV CARPAL TUNNE INJECTION [place] [facility] 1 MEDICAL MAGAN THERAPEUT SERV IC CARPAL FOUNDATIO TUNNEL APPLICATI 17339 NALLELY COLÓN ON 1 [facility] MODALITY CHIROPRAC 1/> AREAS TIC CENTE HOT/COLD PACKS CHIROPRAC 44331 NALLELY COLÓN TIC 1 [facility] MANIPULAT CHIROPRAC BEATRIZ [place] TIC CENTE SPINAL 3-4 REGIONS APPL 03810 NALLELY COLÓN MODALITY 1 K[facility]A 1/> AREAS CHIROPRAC TRACTION TIC CENTE MECHANICA L CHIROPRAC 17015 NALLELY COLÓN TIC 1 [facility] MANIPLTV CHIROPRAC TX TIC CENTE EXTRASPIN AL > REGION APPL 27462 NALLELY COLÓN MODALITY 1 K[facility] 1/> AREAS CHIROPRAC ELEC TIC CENTE STIMJ UNATTENDE D NDL EMG 1 11624 [place] [facility] XTR W/WO 1 MEDICAL RELATED SERV PARASPINA FOUNDATIO L AREAS NRV CNDJ 85151 [place] [facility] [place] AMPLT&LAT 1 MEDICAL ENCY EA SERV NRV MOTOR FOUNDATIO W/F-WAVE STD NRV CNDJ 43258 [place] [facility] [place] AMPLITUDE 1 MEDICAL & SERV LATENCY FOUNDATIO EACH NERVE SENSORY APPL 52684 NALLELY COLÓN MODALITY 1 K[facility]A 1/> AREAS CHIROPRAC TRACTION TIC CENTE MECHANICA L APPLICATI 31560 NALLELY COLÓN ON 1 [facility] MODALITY CHIROPRAC 1/> AREAS TIC CENTE HOT/COLD PACKS CHIROPRAC 77288 NALLELY COLÓN TIC 1 [facility] MANIPULAT CHIROPRAC BEATRIZ [place] TIC CENTE SPINAL 3-4 REGIONS APPL 37579 NALLELY COLÓN MODALITY 1 KHOA 1/> AREAS CHIROPRAC ELEC TIC CENTE STIMJ UNATTENDE D CHIROPRAC 30491 TORRIESEANSHIRIN KATARZYNA TIC 1 KHOA MANIPLTV CHIROPRAC TX TIC CENTE EXTRASPIN AL 1/> REGION CHIROPRAC 32989 CYNSEANSHIRIN KATARZYNA TIC 1 KHOA MANIPLTV CHIROPRAC TX TIC CENTE EXTRASPIN AL 1/> REGION APPL 30115 CYNSEANSHIRIN KATARZYNA MODALITY 1 KHOA 1/> AREAS CHIROPRAC ELEC TIC CENTE STIMJ UNATTENDE D CHIROPRAC 85519 TORRIEBRO COLÓN TIC 1 K[facility]A MANIPULAT CHIROPRAC BEATRIZ TX TIC CENTE SPINAL 3-4 REGIONS MANUAL 74816 NALLELY COLÓN THERAPY 1 K[facility]A TQS 1/> CHIROPRAC REGIONS TIC CENTE EACH 15 MINUTES APPL 29189 NALLELY COLÓN MODALITY 1 KHOA 1/> AREAS CHIROPRAC TRACTION TIC CENTE MECHANICA L APPLICATI 02261 NALLELY COLÓN ON 1 [facility] MODALITY CHIROPRAC 1/> AREAS TIC CENTE HOT/COLD PACKS ARTHROCEN 70608 [place] DANIEL SAADO TESIS 1 MEDICAL ASPIR&/IN SERV J INTERM FOUNDATIO JT/BURS W/O US INJECTION J3301 [place] DANIEL SCO 1 MEDICAL TRIAMCINO SERV LONE FOUNDATIO ACETONIDE NOS 10 MG INJECTION 55833 [facility] SHOULDER 1 Y Y [facility] ARTHROG PHY/ CT/MRI ARTHG MRI ANY 76354 [facility] UPPER 1 [facility] W/CONTRAS T MATRL RADEX 81627 [facility] 1 Y Y [facility] PHY RS&I APPLICATI 43653 NALLELY COLÓN ON 1 [facility] MODALITY CHIROPRAC 1/> AREAS TIC CENTE HOT/COLD PACKS APPL 09635 NALLELY COLÓN MODALITY 1 KHOA 1/> AREAS CHIROPRAC TRACTION TIC CENTE MECHANICA L CHIROPRAC 78754 NALLELY COLÓN TIC 1 [facility] MANIPULAT CHIROPRAC BEATRIZ [place] TIC CENTE SPINAL 3-4 REGIONS APPL 45109 NALLELY COLÓN MODALITY 1 KHOA 1/> AREAS CHIROPRAC ELEC TIC CENTE STIMJ UNATTENDE D CHIROPRAC 18601 NALLELY COLÓN TIC 1 KHOA MANIPLTV CHIROPRAC TX TIC CENTE EXTRASPIN AL 1/> REGION APPL 00326 NALLELY COLÓN MODALITY 1 KHOA 1/> AREAS CHIROPRAC ELEC TIC CENTE STIMJ UNATTENDE D CHIROPRAC 85428 NALLELY COLÓN TIC 1 KHOA MANIPLTV CHIROPRAC TX TIC CENTE EXTRASPIN AL 1/> REGION CHIROPRAC 31729 NALLELY COLÓN TIC 1 KHOA MANIPULAT CHIROPRAC BEATRIZ TX TIC CENTE SPINAL 3-4 REGIONS APPLICATI 16991 NALLELY COLÓN ON 1 [facility] MODALITY CHIROPRAC 1/> AREAS TIC CENTE HOT/COLD PACKS APPL 90542 NALLELY COLÓN MODALITY 1 KHOA 1/> AREAS CHIROPRAC TRACTION TIC CENTE MECHANICA L APPL 58937 NALLELY COLÓN MODALITY 1 KHOA 1/> AREAS CHIROPRAC TRACTION TIC CENTE MECHANICA L APPLICATI 57847 NALLELY COLÓN ON 1 [facility] MODALITY CHIROPRAC 1/> AREAS TIC CENTE HOT/COLD PACKS CHIROPRAC 85304 NALLELY COLÓN TIC 1 KHOA MANIPULAT CHIROPRAC BEATRIZ TX TIC CENTE SPINAL 3-4 REGIONS CHIROPRAC 17963 NALLELY COLÓN TIC 1 KHOA MANIPLTV CHIROPRAC TX TIC CENTE EXTRASPIN AL 1/> REGION APPL 43257 NALLELY COLÓN MODALITY 1 KHOA 1/> AREAS CHIROPRAC ELEC TIC CENTE STIMJ UNATTENDE D APPL 84931 NALLELY COLÓN MODALITY 1 KHOA 1/> AREAS CHIROPRAC ELEC TIC CENTE STIMJ UNATTENDE D CHIROPRAC 32467 NALLELY COLÓN TIC 1 KHOA MANIPLTV CHIROPRAC TX TIC CENTE EXTRASPIN AL 1/> REGION CHIROPRAC 24016 NALLELY COLÓN TIC 1 KHOA MANIPULAT CHIROPRAC BEATRIZ TX TIC CENTE SPINAL 3-4 REGIONS APPLICATI 03822 NALLELY COLÓN ON 1 [facility] MODALITY CHIROPRAC 1/> AREAS TIC CENTE HOT/COLD PACKS APPL 05174 NALLELY COLÓN MODALITY 1 KHOA 1/> AREAS CHIROPRAC TRACTION TIC CENTE MECHANICA L RADIOLOGI 86538 [place] ORTIZ C 1 MEDICAL GERSON EXAMINATI SERV ON PELVIS FOUNDATIO 1/2 VIEWS RADEX 40594 [place] ANGEL ANKLE 1 MEDICAL GERSON COMPLETE SERV MINIMUM 3 FOUNDATIO VIEWS APPL 96480 NALLELY COLÓN MODALITY 1 KHOA 1/> AREAS CHIROPRAC TRACTION TIC CENTE MECHANICA L APPLICATI 80429 NALLELY COLÓN ON 1 [facility] MODALITY CHIROPRAC 1/> AREAS TIC CENTE HOT/COLD PACKS CHIROPRAC 19794 NALLELY COLÓN TIC 1 KHOA MANIPULAT CHIROPRAC BEATRIZ TX TIC CENTE SPINAL 3-4 REGIONS CHIROPRAC 15023 NALLELY COLÓN TIC 1 KHOA MANIPLTV CHIROPRAC TX TIC CENTE EXTRASPIN AL 1/> REGION APPL 88817 NALLELY COLÓN MODALITY 1 KHOA 1/> AREAS CHIROPRAC ELEC [place] [address] CHARAN FARRAR LIP 1 LUIS MANUEL LUIS MANUEL APPL 72992 NALLELY BROWNING MODALITY 1 1/> AREAS CHIROPRAC CHIROPRAC TRACTION TIC CENTE TIC CENTE MECHANICA L CHIROPRAC 09017 NALLELY COLÓN TIC 1 [facility] MANIPULAT CHIROPRAC BEATRIZ TX TIC CENTE SPINAL 3-4 REGIONS APPL 48742 NALLELY OCLÓN MODALITY 1 KHOA 1/> AREAS CHIROPRAC ELEC TIC CENTE STIMJ UNATTENDE D CHIROPRAC 17000 NALLELY COLÓN TIC 1 KHOA MANIPLTV CHIROPRAC TX TIC CENTE EXTRASPIN AL 1/> REGION APPL 98350 NALLELY COLÓN MODALITY 1 KHOA 1/> AREAS CHIROPRAC ELEC TIC CENTE STIMJ UNATTENDE D CHIROPRAC 87031 NALLELY COLÓN TIC 1 KHOA MANIPLTV CHIROPRAC TX TIC CENTE EXTRASPIN AL 1/> REGION CHIROPRAC 52929 NALLELY COLÓN TIC 1 KHOA MANIPULAT CHIROPRAC BEATRIZ TX TIC CENTE SPINAL 3-4 REGIONS APPLICATI 05961 NALLELY COLÓN ON 1 [facility] MODALITY CHIROPRAC 1/> AREAS TIC CENTE HOT/COLD PACKS APPL 96882 NALLELY COLÓN MODALITY 1 KHOA 1/> AREAS CHIROPRAC TRACTION TIC CENTE MECHANICA L APPL 80736 NALLELY COLÓN MODALITY 1 KHOA 1/> AREAS CHIROPRAC TRACTION TIC CENTE MECHANICA L CHIROPRAC 30889 NALLELY COLÓN TIC 1 KHOA MANIPULAT CHIROPRAC BEATRIZ TX TIC CENTE SPINAL 3-4 REGIONS APPLICATI 64261 NALLELY COLÓN ON 1 [facility] MODALITY CHIROPRAC 1/> AREAS TIC CENTE HOT/COLD PACKS APPL 85569 NALLELY COLÓN MODALITY 1 KHOA 1/> AREAS CHIROPRAC ELEC TIC CENTE STIMJ UNATTENDE D CHIROPRAC 43401 NALLELY COLÓN TIC 1 KHOA MANIPLTV CHIROPRAC TX TIC CENTE EXTRASPIN AL 1/> REGION CHIROPRAC 50864 NALLELY COLÓN TIC 1 KHOA MANIPLTV CHIROPRAC TX TIC CENTE EXTRASPIN AL 1/> REGION APPL 03445 NALLELY COLÓN MODALITY 1 KHOA 1/> AREAS CHIROPRAC ELEC TIC CENTE STIMJ UNATTENDE D CHIROPRAC 30850 NALLELY COLÓN TIC 1 KHOA MANIPULAT CHIROPRAC BEATRIZ TX TIC CENTE SPINAL 3-4 REGIONS APPL 79528 NALLELY COLÓN MODALITY 1 KHOA 1/> AREAS CHIROPRAC TRACTION TIC CENTE MECHANICA L APPLICATI 86791 NALLELY COLÓN ON 1 KHOA MODALITY CHIROPRAC 1/> AREAS TIC CENTE HOT/COLD PACKS APPLICATI 73993 NALLELY COLÓN ON 1 [facility]A MODALITY CHIROPRAC 1/> AREAS TIC CENTE HOT/COLD PACKS CHIROPRAC 78344 NALLELY COLÓN TIC 1 KHOA MANIPULAT CHIROPRAC BEATRIZ TX TIC CENTE SPINAL 3-4 REGIONS APPL 19613 NALLELY COLÓN MODALITY 1 KHOA 1/> AREAS CHIROPRAC TRACTION TIC CENTE MECHANICA L APPL 44182 NALLELY COLÓN MODALITY 1 KHOA 1/> AREAS CHIROPRAC ELEC TIC CENTE STIMJ UNATTENDE D CHIROPRAC 88583 NALLELY COLÓN TIC 1 KHOA MANIPLTV CHIROPRAC TX TIC CENTE EXTRASPIN AL 1/> REGION CHIROPRAC 68013 NALLELY COLÓN TIC 1 KHOA MANIPLTV CHIROPRAC TX TIC CENTE EXTRASPIN AL 1/> REGION APPL 68828 NALLELY COLÓN MODALITY 1 KHOA 1/> AREAS CHIROPRAC ELEC TIC CENTE STIMJ UNATTENDE D CHIROPRAC 67301 NALLELY COLÓN TIC 1 KHOA MANIPULAT CHIROPRAC BEATRIZ TX TIC CENTE SPINAL 3-4 REGIONS APPLICATI 12143 NALLELY COLÓN ON 1 K[facility] MODALITY CHIROPRAC 1/> AREAS TIC CENTE HOT/COLD PACKS APPL 12996 NALLELY COLÓN MODALITY 1 KHOA 1/> AREAS CHIROPRAC TRACTION TIC CENTE MECHANICA L APPLICATI 24876 NALLELY COLÓN ON 1 KHOA MODALITY CHIROPRAC 1/> AREAS TIC CENTE HOT/COLD PACKS CHIROPRAC 64874 NALLELY COLÓN TIC 1 KHOA MANIPULAT CHIROPRAC BEATRIZ TX TIC CENTE SPINAL 3-4 REGIONS APPL 31166 NALLELY COLÓN MODALITY 1 KHOA 1/> AREAS CHIROPRAC TRACTION TIC CENTE MECHANICA L APPL 88957 NALLELY COLÓN MODALITY 1 KHOA 1/> AREAS CHIROPRAC ELEC TIC CENTE STIMJ UNATTENDE D CHIROPRAC 16716 NALLELY COLÓN TIC 1 KHOA MANIPLTV CHIROPRAC TX TIC CENTE EXTRASPIN AL 1/> REGION CHIROPRAC 21559 NALLELY COLÓN TIC 1 KHOA MANIPLTV CHIROPRAC TX TIC CENTE EXTRASPIN AL 1/> REGION APPL 78247 NALLLEY COLÓN MODALITY 1 KHOA 1/> AREAS CHIROPRAC ELEC TIC CENTE STIMJ UNATTENDE D CHIROPRAC 17286 NALLELY COLÓN TIC 1 KHOA MANIPULAT CHIROPRAC BEATRIZ TX TIC CENTE SPINAL 3-4 REGIONS APPLICATI 52217 NALLELY COLÓN ON 1 KHOA MODALITY CHIROPRAC 1/> AREAS TIC CENTE HOT/COLD PACKS APPL 57931 NALLELY COLÓN MODALITY 1 KHOA 1/> AREAS CHIROPRAC TRACTION TIC CENTE MECHANICA L APPL 04514 NALLELY COLÓN MODALITY 1 KHOA 1/> AREAS CHIROPRAC TRACTION TIC CENTE MECHANICA L APPLICATI 55378 NALLELY COLÓN ON 1 KHOA MODALITY CHIROPRAC 1/> AREAS TIC CENTE HOT/COLD PACKS CHIROPRAC 29236 NALLELY COLÓN TIC 1 KHOA MANIPULAT CHIROPRAC BEATRIZ TX TIC CENTE SPINAL 3-4 REGIONS APPL 97208 NALLELY COLÓN MODALITY 1 KHOA 1/> AREAS CHIROPRAC ELEC TIC CENTE STIMJ UNATTENDE D CHIROPRAC 76108 NALLELY COLÓN TIC 1 KHOA MANIPLTV CHIROPRAC TX TIC CENTE EXTRASPIN AL 1/> REGION CHIROPRAC 44499 NALLELY COLÓN TIC 1 KHOA MANIPLTV CHIROPRAC TX TIC CENTE EXTRASPIN AL 1/> REGION APPL 40724 NALLELY BROWNING MODALITY 1 1/> AREAS CHIROPRAC CHIROPRAC ELEC TIC CENTE TIC CENTE STIMJ UNATTENDE D CHIROPRAC 25177 NALLELY COLÓN TIC 1 KHOA MANIPULAT CHIROPRAC BEATRIZ TX TIC CENTE SPINAL 3-4 REGIONS APPLICATI 24610 NALLELY COLÓN ON 1 KHOA MODALITY CHIROPRAC 1/> AREAS TIC CENTE HOT/COLD PACKS APPLICATI 21849 NALLELY COLÓN ON 1 KHOA MODALITY CHIROPRAC 1/> AREAS TIC CENTE HOT/COLD PACKS APPL 03374 NALLELY COLÓN MODALITY 1 KHOA 1/> AREAS CHIROPRAC TRACTION TIC CENTE MECHANICA L CHIROPRAC 14952 NALLELY COLÓN TIC 1 KHOA MANIPULAT CHIROPRAC BEATRIZ TX TIC CENTE SPINAL 3-4 REGIONS APPL 30276 NALLELY COLÓN MODALITY 1 KHOA 1/> AREAS CHIROPRAC ELEC TIC CENTE STIMJ UNATTENDE D CHIROPRAC 41572 NALLELY COLÓN TIC 1 KHOA MANIPLTV CHIROPRAC TX TIC CENTE EXTRASPIN AL 1/> REGION CHIROPRAC 14665 NALLELY COLÓN TIC 1 KHOA MANIPLTV CHIROPRAC TX TIC CENTE EXTRASPIN AL 1/> REGION APPL 63595 NALLELY COLÓN MODALITY 1 KHOA 1/> AREAS CHIROPRAC ELEC TIC CENTE STIMJ UNATTENDE D CHIROPRAC 46348 NALLELY COLÓN TIC 1 KHOA MANIPULAT CHIROPRAC BEATRIZ TX TIC CENTE SPINAL 3-4 REGIONS APPL 02060 NALLELY COLÓN MODALITY 1 KHOA 1/> AREAS CHIROPRAC TRACTION TIC CENTE MECHANICA L APPLICATI 18105 NALLELY COLÓN ON 1 KHOA MODALITY CHIROPRAC 1/> AREAS TIC CENTE HOT/COLD PACKS APPL 48176 NALLELY COLÓN MODALITY 1 KHOA 1/> AREAS CHIROPRAC ELEC TIC CENTE STIMJ UNATTENDE D CHIROPRAC 13689 NALLELY COLÓN TIC 1 KHOA MANIPULAT CHIROPRAC BEATRIZ TX TIC CENTE SPINAL 3-4 REGIONS APPL 45545 NALLELY BROWNING MODALITY 1 1/> AREAS CHIROPRAC CHIROPRAC TRACTION TIC CENTE TIC CENTE MECHANICA L CHIROPRAC 08583 NALLELY COLÓN TIC 1 KHOA MANIPLTV CHIROPRAC TX TIC CENTE EXTRASPIN AL 1/> REGION CHIROPRAC 74790 NALLELY COLÓN TIC 1 KHOA MANIPLTV CHIROPRAC TX TIC CENTE EXTRASPIN AL 1/> REGION APPL 94416 NALLELY COLÓN MODALITY 1 KHOA 1/> AREAS CHIROPRAC ELEC TIC CENTE STIMJ UNATTENDE D CHIROPRAC 04734 NALLELY COLÓN TIC 1 KHOA MANIPULAT CHIROPRAC BEATRIZ TX TIC CENTE SPINAL 3-4 REGIONS APPLICATI 02223 NALLELY COLÓN ON 1 KHOA MODALITY CHIROPRAC 1/> AREAS TIC CENTE HOT/COLD PACKS APPL 09730 NALLELY COLÓN MODALITY 1 KHOA 1/> AREAS CHIROPRAC TRACTION TIC CENTE MECHANICA L APPLICATI 45529 NALLELY COLÓN ON 1 KHOA MODALITY CHIROPRAC 1/> AREAS TIC CENTE HOT/COLD PACKS CHIROPRAC 48303 NALLELY COLÓN TIC 1 KHOA MANIPULAT CHIROPRAC BEATRIZ TX TIC CENTE SPINAL 3-4 REGIONS APPL 96476 NALLELY COLÓN MODALITY 1 KHOA 1/> AREAS CHIROPRAC TRACTION TIC CENTE MECHANICA L RADEX 42633 NALLELY COLÓN SPINE 1 KHOA LUMBOSACR CHIROPRAC AL 2/3 TIC CENTE VIEWS APPL 14145 NALLELY COLÓN MODALITY 1 KHOA 1/> AREAS CHIROPRAC ELEC TIC CENTE STIMJ UNATTENDE D CHIROPRAC 23077 NALLELY COLÓN TIC 1 KHOA MANIPLTV CHIROPRAC TX TIC CENTE EXTRASPIN AL 1/> REGION THERAPEUT 14669 ANA FUENTESON IC PX 1/> 1 [facility] AREAS INC INC EACH 15 MIN EXERCISES THERAPEUT 53457 ANA FUENTESON IC PX 1/> 1 [facility] AREAS INC INC EACH 15 MIN EXERCISES THERAPEUT 96056 ANA ANA IC PX 1/> 1 [facility] AREAS INC INC EACH 15 MIN EXERCISES THERAPEUT 32736 ANA ANA IC PX 1/> 1 [facility] AREAS INC INC EACH 15 MIN EXERCISES PHYSICAL 82513 ANA ANA THERAPY 1 [facility] EVALUATIO INC INC N RADEX 78093 [facility] MINIMUM 3 VIEWS RADIOLOGI 12695 [facility] C EXAM [facility] COMPL MINIMUM 3 VIEWS RADEX 72390 [facility] ANKLE [facility] MINIMUM 3 VIEWS STANDARD K0001 [facility] WHEELCHAI 0 HOME HOME R CARE, INC CARE, Fur and Mask MANUAL E0961 [facility] WHEELCHAI 0 HOME HOME R ACCESS CARE, INC CARE, INC WHEEL LOCK BRAKE EXT EA MNL E0971 [facility] WHEELCHAI 0 HOME HOME R CARE, INC CARE, INC ACCESSORY ANTI-TIPP ING DEVC EACH RADEX 44018 [facility] SHORT WRIST 0 MEDICAL COMPLETE SERV MINIMUM 3 FOUNDATIO VIEWS RADEX 91497 [facility] ANKLE 0 MEDICAL COMPLETE SERV MINIMUM 3 FOUNDATIO VIEWS RADIOLOGI 04370 DAVE SHORT C EXAM 0 MEDICAL PELVIS SERV COMPL FOUNDATIO MINIMUM 3 VIEWS STANDARD K0001 [facility] PRE[facility]ER WHEELCHAI 0 HOME HOME R CARE, INC CARE, INC MANUAL E0961 [facility]ER WHEELCHAI 0 HOME HOME R ACCESS CARE, INC CARE, INC WHEEL LOCK BRAKE EXT EA MNL E0971 [facility] WHEELCHAI 0 HOME HOME R CARE, INC CARE, INC ACCESSORY ANTI-TIPP ING DEVC EACH RADEX 83751 [facility] MINIMUM 3 VIEWS RADIOLOGI 35088 [facility] C EXAM 0 [facility] COMPL MINIMUM 3 VIEWS DUP-SCAN 94995 [facility] XTR VEINS 0 Y [facility] L/LIMITED STUDY N-INVAS 77336 [place] AYOOB AND PHYSIOLOG 0 MEDICAL IC STD SERV XTR VEINS FOUNDATIO COMPL BI STD MANUAL E0961 [facility] WHEELCHAI 0 HOME HOME R ACCESS CARE, INC CARE, INC WHEEL LOCK BRAKE EXT EA STANDARD K0001 [facility] PRE[facility] WHEELCHAI 0 HOME HOME R CARE, INC CARE, INC MNL E0971 [facility] WHEELCHAI 0 HOME HOME R CARE, INC CARE, INC ACCESSORY ANTI-TIPP ING DEVC [facility] 48332 [place] DIS[facility] 0 MEDICAL GINGER DAY SERV MANAGEMEN FOUNDATIO T 30 MIN/< SBSQ 32192 [place] [address] MEDICAL NAN CARE/DAY SERV 25 FOUNDATIO MINUTES SBSQ 51587 [place] [address] MEDICAL R MINDI CARE/DAY SERV 25 FOUNDATIO MINUTES DUP-SCAN 24517 ALPHONSO ALPHONSO XTR VEINS 0 KESHAWN KESHAWN COMPLETE BILATERAL STUDY SBSQ 31466 [facility] 0 MEDICAL R MINDI CARE/DAY SERV 25 FOUNDATIO MINUTES SBSQ 93073 [facility] 0 MEDICAL R MINDI CARE/DAY SERV 25 FOUNDATIO MINUTES RADEX 52374 [place] SHOULD[facility] 0 MEDICAL JT 1 VIEW SERV FOUNDATIO SBSQ 31696 [facility] 0 MEDICAL R MINDI CARE/DAY SERV 25 FOUNDATIO MINUTES SBSQ 17560 [facility] 0 MEDICAL NAN CARE/DAY SERV 25 FOUNDATIO MINUTES SBSQ 64685 [facility] 0 MEDICAL NAN CARE/DAY SERV 25 FOUNDATIO MINUTES INITIAL 22323 [place] [facility] 0 MEDICAL R MINDI CARE/DAY SERV 50 FOUNDATIO MINUTES GROUND A0425 MERCURYAM MERCURYAM MILEAGE 0 BULAN CE BULAN CE PER [facility] [address] [place] [facility] 0 MEDICAL SAURAV DAY SERV MANAGEMEN FOUNDATIO T 30 MIN/< SBSQ 94402 [place] [facility] 0 MEDICAL SAURAV CARE/DAY SERV 15 FOUNDATIO MINUTES RADEX 14120 [place] [facility] SHORT WRIST 0 MEDICAL COMPLETE SERV MINIMUM 3 FOUNDATIO VIEWS RADEX 34128 [place] [facility] WRIST 2 0 MEDICAL GERSON VIEWS SERV FOUNDATIO SBSQ 21316 [place] [facility] 0 MEDICAL SARUAV CARE/DAY SERV 15 FOUNDATIO MINUTES SBSQ 61998 [place] [facility] 0 MEDICAL SAURAV CARE/DAY SERV 15 FOUNDATIO MINUTES SBSQ 71912 [facility] 0 MEDICAL SAURAV CARE/DAY SERV 15 FOUNDATIO MINUTES RADEX 78302 [place] [facility] 0 MEDICAL COMPLETE SERV MINIMUM 2 FOUNDATIO VIEWS ANESTHESI 11951 [place] HESSELL A ON BONY 0 MEDICAL EUGEN E PELVIS SERV FOUNDATIO CT PELVIS 87274 [place] TW[place] SHORT W/O 0 MEDICAL CONTRAST SERV MATERIAL FOUNDATIO OPTX ANT 19997 [place] [facility]ATT PELVIC 0 MEDICAL RAY BONE SERV FX&/DISLC FOUNDATIO INT FIXJ IF PFR PERQ 10859 [place] [facility] SKELETAL 0 MEDICAL RAY FIXATION SERV PST FOUNDATIO PELVIC BONE FX&/DIS RADIOLOGI 04068 [place] SHORT C EXAM 0 MEDICAL PELVIS SERV COMPL FOUNDATIO MINIMUM 3 VIEWS RADEX 28618 [place] SHORT SHOULDER 0 MEDICAL COMPLETE SERV MINIMUM 2 FOUNDAT[place] VIEWS INITIAL 88737 [place] INPATIENT 0 MEDICAL LIZBETH CONSULT SERV NEW/ESTAB FOUNDATIO PT 20 MIN INITIAL 35050 [place] [facility] 0 MEDICAL CLARKE CARE/DAY SERV 70 FOUNDATIO MINUTES DBRDMT 31749 [place] GUTIERRE[place] FX&/DISLC 0 MEDICAL RAY SUBQ SERV T/M/[place] [address] [place] DISTAL 0 [place] FIBULAR SERV FRACTURE FOUNDATIO LAT MALLEOLUS ANES OPEN 30483 [place] REYMANN PROC 0 MEDICAL PAUL BONES SERVICES LOWER LEG/ANKLE /FOOT NOS RADIOLOGI 76719 [place] ORTIZ C 0 MEDICAL GERSON EXAMINATI SERV ON [place] [address] [place] MUSE THORACIC 0 MEDICAL DYLON SPINE W/O SERV CONTRAST F[place] NJX 30856 [place]TI[place] RETROGRAD 0 MEDICAL GERSON [place] [address] [place] LOWERY ABDOMEN 0 MEDICAL BEBA W/CONTRAS SERV T FOUNDATIO MATERIAL URETHROCY 72512 [place] STOGRAPHY 0 MEDICAL GERSON SERV RETROGRAD FOUNDATIO E RS&I RADEX 28525 [place] SHOULDER 0 MEDICAL GERSON COMPLETE SERV MINIMUM [address] LUMBAR 55016 [place] MUSE SPINE 0 MEDICAL DYLON W/O SERV CONTRAST FOUNDATIO MATERIAL RADIOLOGI 19414 [place] ORTIZ C 0 MEDICAL GERSON EXAMINATI SERV ON PELVIS FOUNDATIO 1/2 VIEWS RADIOLOGI 63150 [place] ORTIZ C 0 MEDICAL GERSON EXAMINATI SERV ON TIBIA FOUNDATIO & FIBULA 2 VIEWS ECG 30121 [place] JORI C ROUTINE 0 MEDICAL ECG SERV W/LEAST FOUNDATIO 12 LDS I&R ONLY CT PELVIS 30058 [place] ATTILI W/O & 0 MEDICAL [place]I [place] [address] [place] MUSE CERVICAL 0 MEDICAL DYLON SPINE W/O SERV CONTRAST FOUNDATIO MATERIAL RADIOLOGI 08938 [place] ORTIZ C EXAM 0 MEDICAL GERSON PELVIS SERV COMPL FOUNDATIO MINIMUM 3 VIEWS RADEX 04062 [place] TRENT JAM ANKLE 0 MEDICAL COMPLETE SERV MINIMUM 3 FOUNDATIO VIEWS RADEX 34971 [place] ORTI[place] FOOT 0 MEDICAL GERSON COMPLETE SERV MINIMUM 3 FOUNDATIO VIEWS AMB [id number] PETROLEUM PETROLEUM SERVICE 0 CONVNTION HELICOPTE HELICOPTE AIR SRVC RS INC RS INC TRANSPORT [address] Encounters Encounter Start End Date Code Location Performer Type Date OFFICE 30620 [place] DANIEL OUTPATIEN 7 7 MEDICAL T VISIT SERV 15 FOUNDATIO MINUTES N OFFICE 89245 [place] OUTPATI[place] 6 6 MEDICAL T VISIT SERV 15 FOUNDATIO MINUTES N OFFICE 00994 [place] DANI[place] SCO OUTPATIEN 6 6 MEDICAL T VISIT SERV 15 FOUNDATIO MINUTES N OFFICE 46463 [place] SCO OUTPATIEN 6 6 MEDICAL T VISIT SERV 25 FOUNDATIO MINUTES N OFFICE 79559 [place] DANI[place] SCO OUTPATIEN 6 6 MEDICAL T VISIT SERV 15 FOUNDATIO MINUTES [facility] ANA - 6 6 [facility] ANA - 6 6 [facility] ANA - 6 6 [facility] ANA - 5 5 [facility]IVERSIT - 5 5 Y [facility] UNIVERSIT - 5 5 [facility] T OFFICE [address] [facility] 5 5 Y T VISIT 5 HOSPITAL MINUTES OFFICE 38661 [facility] NANCY NANCY T VISIT 15 MINUTES OFFICE 87359 DAVE DANIEL SCO OUTPATIEN 5 5 MEDICAL T VISIT SERV 25 FOUNDATIO MINUTES N OFFICE 40965 [place] OUTPATIEN 5 5 MEDICAL T VISIT SERV 15 FOUNDATIO MINUTES N OFFICE 96757 DAVE DANIEL SCO OUTPATIEN 5 5 MEDICAL T VISIT SERV 25 FOUNDATIO MINUTES HOSPITAL UNIVERSIT - 5 5 Y [facility] T OFFICE 17632 [place] DANIEL SAADO OUTPATIEN 5 5 MEDICAL T VISIT SERV 15 FOUNDATIO MINUTES N OFFICE 41981 DAVE SANCHEZ SAADO OUTPATIEN 5 5 MEDICAL T VISIT SERV 15 FOUNDATIO MINUTES N Emergency CLEMENTE yWnn MD (ER) 4 11:25 4 12:22 [facility] EMERGENCY 44488 NEAL PULIDO 4 4 EMERGENCY DEPARTMEN SERVICES T VISIT MODERATE SEVERITY OFFICE 01846 SUNNI MOELLER OUTPATIEN 4 4 NANCY NANCY T VISIT 40 MINUTES OFFICE 76800 DAVE SANCHEZ JAMES OUTPATIEN 3 3 MEDICAL T VISIT SERV 25 FOUNDATIO MINUTES N OFFICE 20641 DAVE SANCHEZ SAADO OUTPATIEN 3 3 MEDICAL T VISIT SERV 25 FOUNDATIO MINUTES HOSPITAL ANA - 3 3 [facility] OUTPATIEN [facility] T EMERGENCY 76183 ANA 3 3 [facility] DEPARTMEN INC T VISIT LOW/MODER SEVERITY EMERGENCY 78433 NEAL PHILIPPE 3 3 EMERGENCY DEPARTMEN SERVICES T VISIT MODERATE SEVERITY OFFICE 15474 DEWEY HAM DEWEY HAM OUTPATIEN 2 2 T VISIT 15 MINUTES OFFICE 40462 DEWEY HAM DEWEY HAM OUTPATIEN 2 2 T NEW 45 MINUTES OFFICE 41994 JULIANNEELIEL JULIANNEELIEL OUTPATIEN 2 2 NANCY NANCY T VISIT 15 MINUTES OFFICE 54995 DAVE KEARNEY OUTPATIEN 2 2 MEDICAL MAGAN T VISIT SERV 15 FOUNDATIO MINUTES HOSPITAL UNIVERSIT - 2 2 Y [facility] UN[facility] - 2 2 Y [facility] T OFFICE 57320 DAVE GUTIERREZ OUTPATIEN 2 2 MED[facility] [place]AY T VISIT SERV 15 FOUNDATIO MINUTES OFFICE 68050 DAVE NASHO OUTPATIEN 2 2 MEDICAL T VISIT SERV 25 FOUNDATIO MINUTES OFFICE 42314 DAVE RAMIREZ OUTPATIEN 2 2 MEDICAL T VISIT SERV 25 FOUNDATIO MINUTES HOSPITAL ANA - 2 2 [facility] T OFFICE 98737 DAVE RAMIREZ OUTPATIEN 1 1 MEDICAL T VISIT SERV 15 FOUNDATIO MINUTES OFFICE 70596 DAVE KEARNEY OUTPATIEN 1 1 MEDICAL MAGAN T VISIT SERV 15 [facility] UNIVERSIT - 1 1 [facility] T OFFICE 67635 DAVE RAMIREZ OUTPATIEN 1 1 MEDICAL T VISIT SERV 25 [facility] UNIVERSIT - 1 1 [facility] T OFFICE 20844 DAVE GUTIERREZ OUTPATIEN 1 1 MEDICAL RAY T VISIT SERV 10 FOUNDATIO MINUTES OFFICE 22072 DAVE GUTIERREZ OUTPATIEN 1 1 MEDICAL RAY T VISIT SERV 15 [facility] UNIVERSIT - 1 1 Y [facility] T OFFICE 27922 NALLELY COLÓN OUTPATIEN 1 1 KHOA T NEW 30 CHIROPRAC MINUTES [facility] OFFICE 42811 SNUNI MOELLER OUTPATIEN 1 1 NANCY NANCY T NEW 30 MINUTES HOSPITAL ANA - [address] [facility] [address] [facility]46[facility] DAVE GUTIERREZ OUTPATIEN 1 1 MEDICAL RAY T VISIT SERV 15 [facility] UNIVERSIT - 0 0 Y [facility] UNIVERSIT [facility] 0 0 [facility] - 0 0 Y [facility] EM[facility] [id number] DAVE [place] 0 0 [facility] SERV T VISIT FOUNDATIO MODERATE [facility]VERITY [facility] EM[facility] [id number] UNIVERSIT 0 0 Y [facility] T VISIT LOW/MODER SEVERITY EMERGENCY [id number] [place] DEPT 0 0 [facility] VISIT SERV HIGH FOUNDATIO SEVERITY& THREAT FUNCJ
--- OUTSIDE RECORDS SUMMARY | 2017-07-15 10:08 | External Medical Summary Rpt ---
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 1 KHOA 1/> AREAS CHIROPRAC ELEC TIC CENTE STIMJ UNATTENDE D CHIROPRAC 47706 NALLELY COLÓN TIC 1 KHOA MANIPLTV CHIROPRAC TX TIC CENTE EXTRASPIN AL > REGION CHIROPRAC 41296 NALLELY COLÓN TIC 1 KHOA MANIPULAT CHIROPRAC BEATRIZ TX TIC CENTE SPINAL 3-4 REGIONS APPL 45165 NALLELY COLÓN MODALITY 1 KHOA 1/> AREAS CHIROPRAC TRACTION TIC CENTE MECHANICA L APPLICATI 38263 NALLELY COLÓN ON 1 KHOA MODALITY CHIROPRAC 1/> AREAS TIC CENTE HOT/COLD PACKS NEUROPLAS 04335 [place] [facility] TY 1 MEDICAL MAGAN &/TRANSPO SERV S MEDIAN FOUNDATIO NRV CARPAL TUNNE INJECTION [place] CHRISTEL 1 MEDICAL MAGAN THERAPEUT SERV IC CARPAL FOUNDATIO TUNNEL APPLICATI 49548 NALLELY COLÓN ON 1 K[facility]A MODALITY CHIROPRAC 1/> AREAS TIC CENTE HOT/COLD PACKS CHIROPRAC 04981 NALLELY COLÓN TIC 1 KHOA MANIPULAT CHIROPRAC BEATRIZ [place] TIC CENTE SPINAL 3-4 REGIONS APPL 87939 NALLELY COLÓN MODALITY 1 KHOA 1/> AREAS CHIROPRAC TRACTION TIC CENTE MECHANICA L CHIROPRAC 74878 NALLELY COLÓN TIC 1 KHOA MANIPLTV CHIROPRAC TX TIC CENTE EXTRASPIN AL > REGION APPL 97293 NALLELY COLÓN MODALITY 1 KHOA 1/> AREAS CHIROPRAC ELEC TIC CENTE STIMJ UNATTENDE D NDL EMG 1 28684 [place] NOHEMY [place] XTR W/WO 1 MEDICAL RELATED SERV PARASPINA FOUNDATIO L AREAS NRV CNDJ 48244 [place] NO[place] AMPLT&LAT 1 MEDICAL ENCY EA SERV NRV MOTOR FOUNDATIO W/F-WAVE STD NRV CNDJ 32991 [place] NO[place] AMPLITUDE 1 MEDICAL & SERV LATENCY FOUNDATIO EACH NERVE SENSORY APPL 32396 NALLELY COLÓN MODALITY 1 KHOA 1/> AREAS CHIROPRAC TRACTION TIC CENTE MECHANICA L APPLICATI 03001 NALLELY COLÓN ON 1 KHOA MODALITY CHIROPRAC 1/> AREAS TIC CENTE HOT/COLD PACKS CHIROPRAC 11900 NALLELY COLÓN TIC 1 KHOA MANIPULAT CHIROPRAC BEATRIZ [place] TIC CENTE SPINAL 3-4 REGIONS APPL 31636 NALLELY COLÓN MODALITY 1 KHOA 1/> AREAS CHIROPRAC ELEC TIC CENTE STIMJ UNATTENDE D CHIROPRAC 44517 TORRIESEANSHIRIN KATARZYNA TIC 1 KHOA MANIPLTV CHIROPRAC TX TIC CENTE EXTRASPIN AL 1/> REGION CHIROPRAC 17235 CYNSEANSHIRIN KATARZYNA TIC 1 KHOA MANIPLTV CHIROPRAC TX TIC CENTE EXTRASPIN AL 1/> REGION APPL 52719 CYNSEANSHIRIN KATARZYNA MODALITY 1 KHOA 1/> AREAS CHIROPRAC ELEC TIC CENTE STIMJ UNATTENDE D CHIROPRAC 00813 TORRIEBRO COLÓN TIC 1 KHOA MANIPULAT CHIROPRAC BEATRIZ TX TIC CENTE SPINAL 3-4 REGIONS MANUAL 83555 NALLELY COLÓN THERAPY 1 KHOA TQS 1/> CHIROPRAC REGIONS TIC CENTE EACH 15 MINUTES APPL 90082 NALLELY COLÓN MODALITY 1 KHOA 1/> AREAS CHIROPRAC TRACTION TIC CENTE MECHANICA L APPLICATI 55919 NALLELY COLÓN ON 1 KHOA MODALITY CHIROPRAC 1/> AREAS TIC CENTE HOT/COLD PACKS ARTHROCEN 70629 [place] DANIEL SAADO TESIS 1 MEDICAL ASPIR&/IN SERV J INTERM FOUNDATIO JT/BURS W/O US INJECTION J3301 [place] DANIEL SCO 1 MEDICAL TRIAMCINO SERV LONE FOUNDATIO ACETONIDE NOS 10 [address] INJECTION [address] [facility] SHOULDER 1 Y Y [facility]/ [place] [address] [facility] UPPER 1 Y Y EXTREMITY [facility] W/CONTRAS T MATRL RADEX 71057 [facility] 1 Y Y [facility] PHY RS&I APPLICATI 57324 NALLELY COLÓN ON 1 KHOA MODALITY CHIROPRAC 1/> AREAS TIC CENTE HOT/COLD PACKS APPL 44411 NALLELY COLÓN MODALITY 1 KHOA 1/> AREAS CHIROPRAC TRACTION TIC CENTE MECHANICA L CHIROPRAC 29875 NALLELY COLÓN TIC 1 KHOA MANIPULAT CHIROPRAC BEATRIZ [place] TIC CENTE SPINAL 3-4 REGIONS APPL 91703 NALLELY COLÓN MODALITY 1 KHOA 1/> AREAS CHIROPRAC ELEC TIC CENTE STIMJ UNATTENDE D CHIROPRAC 69417 NALLELY COLÓN TIC 1 KHOA MANIPLTV CHIROPRAC TX TIC CENTE EXTRASPIN AL 1/> REGION APPL 27735 NALLELY COLÓN MODALITY 1 KHOA 1/> AREAS CHIROPRAC ELEC TIC CENTE STIMJ UNATTENDE D CHIROPRAC 42900 NALLELY COLÓN TIC 1 KHOA MANIPLTV CHIROPRAC TX TIC CENTE EXTRASPIN AL 1/> REGION CHIROPRAC 97827 NALLELY COLÓN TIC 1 KHOA MANIPULAT CHIROPRAC BEATRIZ TX TIC CENTE SPINAL 3-4 REGIONS APPLICATI 81630 NALLELY COLÓN ON 1 KHOA MODALITY CHIROPRAC 1/> AREAS TIC CENTE HOT/COLD PACKS APPL 65746 NALLELY COLÓN MODALITY 1 KHOA 1/> AREAS CHIROPRAC TRACTION TIC CENTE MECHANICA L APPL 63665 NALLELY COLÓN MODALITY 1 KHOA 1/> AREAS CHIROPRAC TRACTION TIC CENTE MECHANICA L APPLICATI 18285 NALLELY COLÓN ON 1 KHOA MODALITY CHIROPRAC 1/> AREAS TIC CENTE HOT/COLD PACKS CHIROPRAC 72363 NALLELY COLÓN TIC 1 KHOA MANIPULAT CHIROPRAC BEATRIZ TX TIC CENTE SPINAL 3-4 REGIONS CHIROPRAC 51741 NALLELY COLÓN TIC 1 KHOA MANIPLTV CHIROPRAC TX TIC CENTE EXTRASPIN AL 1/> REGION APPL 74426 NALLELY COLÓN MODALITY 1 KHOA 1/> AREAS CHIROPRAC ELEC TIC CENTE STIMJ UNATTENDE D APPL 81413 NALLELY COLÓN MODALITY 1 KHOA 1/> AREAS CHIROPRAC ELEC TIC CENTE STIMJ UNATTENDE D CHIROPRAC 26119 NALLELY COLÓN TIC 1 KHOA MANIPLTV CHIROPRAC TX TIC CENTE EXTRASPIN AL 1/> REGION CHIROPRAC 03337 NALLELY COLÓN TIC 1 KHOA MANIPULAT CHIROPRAC BEATRIZ TX TIC CENTE SPINAL 3-4 REGIONS APPLICATI 38645 NALLELY COLÓN ON 1 KHOA MODALITY CHIROPRAC 1/> AREAS TIC CENTE HOT/COLD PACKS APPL 60892 NALLELY COLÓN MODALITY 1 KHOA 1/> AREAS CHIROPRAC TRACTION TIC CENTE MECHANICA L RADIOLOGI 80881 [place] ORTIZ C 1 MEDICAL GERSON EXAMINATI SERV ON PELVIS FOUNDATIO 1/2 VIEWS RADEX 39584 [place] ANGEL ANKLE 1 MEDICAL GERSON COMPLETE SERV MINIMUM 3 FOUNDATIO VIEWS APPL 59783 NALLELY COLÓN MODALITY 1 KHOA 1/> AREAS CHIROPRAC TRACTION TIC CENTE MECHANICA L APPLICATI 10209 NALLELY COLÓN ON 1 KHOA MODALITY CHIROPRAC 1/> AREAS TIC CENTE HOT/COLD PACKS CHIROPRAC 83535 NALLELY COLÓN TIC 1 KHOA MANIPULAT CHIROPRAC BEATRIZ TX TIC CENTE SPINAL 3-4 REGIONS CHIROPRAC 23111 NALLELY COLÓN TIC 1 KHOA MANIPLTV CHIROPRAC TX TIC CENTE EXTRASPIN AL 1/> REGION APPL 74912 NALLELY COLÓN MODALITY 1 KHOA 1/> AREAS CHIROPRAC ELEC T[place] [address] CHARAN FARRAR LIP 1 LUIS MANUEL LUIS MANUEL APPL 05310 NALLELY BROWNING MODALITY 1 1/> AREAS CHIROPRAC CHIROPRAC TRACTION TIC CENTE TIC CENTE MECHANICA L CHIROPRAC 18767 NALLELY COLÓN TIC 1 KHOA MANIPULAT CHIROPRAC BEATRIZ TX TIC CENTE SPINAL 3-4 REGIONS APPL 04193 NALLELY COLÓN MODALITY 1 KHOA 1/> AREAS CHIROPRAC ELEC TIC CENTE STIMJ UNATTENDE D CHIROPRAC 45748 NALLELY COLÓN TIC 1 KHOA MANIPLTV CHIROPRAC TX TIC CENTE EXTRASPIN AL 1/> REGION APPL 51402 NALLELY COLÓN MODALITY 1 KHOA 1/> AREAS CHIROPRAC ELEC TIC CENTE STIMJ UNATTENDE D CHIROPRAC 20445 NALLELY COLÓN TIC 1 KHOA MANIPLTV CHIROPRAC TX TIC CENTE EXTRASPIN AL 1/> REGION CHIROPRAC 45540 NALLELY COLÓN TIC 1 KHOA MANIPULAT CHIROPRAC BEATRIZ TX TIC CENTE SPINAL 3-4 REGIONS APPLICATI 65283 NALLELY COLÓN ON 1 KHOA MODALITY CHIROPRAC 1/> AREAS TIC CENTE HOT/COLD PACKS APPL 87326 NALLELY COLÓN MODALITY 1 KHOA 1/> AREAS CHIROPRAC TRACTION TIC CENTE MECHANICA L APPL 11157 NALLELY COLÓN MODALITY 1 KHOA 1/> AREAS CHIROPRAC TRACTION TIC CENTE MECHANICA L CHIROPRAC 78944 NALLELY COLÓN TIC 1 KHOA MANIPULAT CHIROPRAC BEATRIZ TX TIC CENTE SPINAL 3-4 REGIONS APPLICATI 89200 NALLELY COLÓN ON 1 KHOA MODALITY CHIROPRAC 1/> AREAS TIC CENTE HOT/COLD PACKS APPL 07795 NALLELY COLÓN MODALITY 1 KHOA 1/> AREAS CHIROPRAC ELEC TIC CENTE STIMJ UNATTENDE D CHIROPRAC 80133 NALLELY COLÓN TIC 1 KHOA MANIPLTV CHIROPRAC TX TIC CENTE EXTRASPIN AL 1/> REGION CHIROPRAC 88834 NALLELY COLÓN TIC 1 KHOA MANIPLTV CHIROPRAC TX TIC CENTE EXTRASPIN AL 1/> REGION APPL 36340 NALLELY COLÓN MODALITY 1 KHOA 1/> AREAS CHIROPRAC ELEC TIC CENTE STIMJ UNATTENDE D CHIROPRAC 20577 NALLELY COLÓN TIC 1 KHOA MANIPULAT CHIROPRAC BEATRIZ TX TIC CENTE SPINAL 3-4 REGIONS APPL 28099 NALLELY COLÓN MODALITY 1 KHOA 1/> AREAS CHIROPRAC TRACTION TIC CENTE MECHANICA L APPLICATI 01342 NALLELY COLÓN ON 1 KHOA MODALITY CHIROPRAC 1/> AREAS TIC CENTE HOT/COLD PACKS APPLICATI 93872 NALLELY COLÓN ON 1 KHOA MODALITY CHIROPRAC 1/> AREAS TIC CENTE HOT/COLD PACKS CHIROPRAC 08321 NALLELY COLÓN TIC 1 KHOA MANIPULAT CHIROPRAC BEATRIZ TX TIC CENTE SPINAL 3-4 REGIONS APPL 15097 NALLELY COLÓN MODALITY 1 KHOA 1/> AREAS CHIROPRAC TRACTION TIC CENTE MECHANICA L APPL 78247 NALLELY COLÓN MODALITY 1 KHOA 1/> AREAS CHIROPRAC ELEC TIC CENTE STIMJ UNATTENDE D CHIROPRAC 42094 NALLELY COLÓN TIC 1 KHOA MANIPLTV CHIROPRAC TX TIC CENTE EXTRASPIN AL 1/> REGION CHIROPRAC 02427 NALLELY COLÓN TIC 1 KHOA MANIPLTV CHIROPRAC TX TIC CENTE EXTRASPIN AL 1/> REGION APPL 17077 NALLELY COLÓN MODALITY 1 KHOA 1/> AREAS CHIROPRAC ELEC TIC CENTE STIMJ UNATTENDE D CHIROPRAC 26509 NALLELY COLÓN TIC 1 KHOA MANIPULAT CHIROPRAC BEATRIZ TX TIC CENTE SPINAL 3-4 REGIONS APPLICATI 67101 NALLELY COLÓN ON 1 KHOA MODALITY CHIROPRAC 1/> AREAS TIC CENTE HOT/COLD PACKS APPL 63847 NALLELY COLÓN MODALITY 1 KHOA 1/> AREAS CHIROPRAC TRACTION TIC CENTE MECHANICA L APPLICATI 46085 NALLELY COLÓN ON 1 KHOA MODALITY CHIROPRAC 1/> AREAS TIC CENTE HOT/COLD PACKS CHIROPRAC 02817 NALLELY COLÓN TIC 1 KHOA MANIPULAT CHIROPRAC BEATRIZ TX TIC CENTE SPINAL 3-4 REGIONS APPL 11890 NALLELY COLÓN MODALITY 1 KHOA 1/> AREAS CHIROPRAC TRACTION TIC CENTE MECHANICA L APPL 04351 NALLELY COLÓN MODALITY 1 KHOA 1/> AREAS CHIROPRAC ELEC TIC CENTE STIMJ UNATTENDE D CHIROPRAC 16756 NALLELY COLÓN TIC 1 KHOA MANIPLTV CHIROPRAC TX TIC CENTE EXTRASPIN AL 1/> REGION CHIROPRAC 88691 NALLELY COLÓN TIC 1 KHOA MANIPLTV CHIROPRAC TX TIC CENTE EXTRASPIN AL 1/> REGION APPL 18558 NALLELY COLÓN MODALITY 1 KHOA 1/> AREAS CHIROPRAC ELEC TIC CENTE STIMJ UNATTENDE D CHIROPRAC 98496 NALLELY COLÓN TIC 1 KHOA MANIPULAT CHIROPRAC BEATRIZ TX TIC CENTE SPINAL 3-4 REGIONS APPLICATI 96238 NALLELY COLÓN ON 1 KHOA MODALITY CHIROPRAC 1/> AREAS TIC CENTE HOT/COLD PACKS APPL 23368 NALLELY COLÓN MODALITY 1 KHOA 1/> AREAS CHIROPRAC TRACTION TIC CENTE MECHANICA L APPL 29145 NALLELY COLÓN MODALITY 1 KHOA 1/> AREAS CHIROPRAC TRACTION TIC CENTE MECHANICA L APPLICATI 70077 NALLELY COLÓN ON 1 KHOA MODALITY CHIROPRAC 1/> AREAS TIC CENTE HOT/COLD PACKS CHIROPRAC 10474 NALLELY COLÓN TIC 1 KHOA MANIPULAT CHIROPRAC BEATRIZ TX TIC CENTE SPINAL 3-4 REGIONS APPL 82047 NALLELY COLÓN MODALITY 1 KHOA 1/> AREAS CHIROPRAC ELEC TIC CENTE STIMJ UNATTENDE D CHIROPRAC 96010 NALLELY COLÓN TIC 1 KHOA MANIPLTV CHIROPRAC TX TIC CENTE EXTRASPIN AL 1/> REGION CHIROPRAC 92587 NALLELY COLÓN TIC 1 KHOA MANIPLTV CHIROPRAC TX TIC CENTE EXTRASPIN AL 1/> REGION APPL 35136 NALLELY BROWNING MODALITY 1 1/> AREAS CHIROPRAC CHIROPRAC ELEC TIC CENTE TIC CENTE STIMJ UNATTENDE D CHIROPRAC 09380 NALLELY COLÓN TIC 1 KHOA MANIPULAT CHIROPRAC BEATRIZ TX TIC CENTE SPINAL 3-4 REGIONS APPLICATI 95273 NALLELY COLÓN ON 1 KHOA MODALITY CHIROPRAC 1/> AREAS TIC CENTE HOT/COLD PACKS APPLICATI 92384 NALLELY COLÓN ON 1 KHOA MODALITY CHIROPRAC 1/> AREAS TIC CENTE HOT/COLD PACKS APPL 40145 NALLELY COLÓN MODALITY 1 KHOA 1/> AREAS CHIROPRAC TRACTION TIC CENTE MECHANICA L CHIROPRAC 96707 NALLELY COLÓN TIC 1 KHOA MANIPULAT CHIROPRAC BEATRIZ TX TIC CENTE SPINAL 3-4 REGIONS APPL 74165 NALLELY COLÓN MODALITY 1 KHOA 1/> AREAS CHIROPRAC ELEC TIC CENTE STIMJ UNATTENDE D CHIROPRAC 68634 NALLELY COLÓN TIC 1 KHOA MANIPLTV CHIROPRAC TX TIC CENTE EXTRASPIN AL 1/> REGION CHIROPRAC 55753 NALLELY COLÓN TIC 1 KHOA MANIPLTV CHIROPRAC TX TIC CENTE EXTRASPIN AL 1/> REGION APPL 46879 NALLELY COLÓN MODALITY 1 KHOA 1/> AREAS CHIROPRAC ELEC TIC CENTE STIMJ UNATTENDE D CHIROPRAC 68376 NALLELY COLÓN TIC 1 KHOA MANIPULAT CHIROPRAC BEATRIZ TX TIC CENTE SPINAL 3-4 REGIONS APPL 14798 NALLELY COLÓN MODALITY 1 HKOA 1/> AREAS CHIROPRAC TRACTION TIC CENTE MECHANICA L APPLICATI 16234 NALLELY COLÓN ON 1 KHOA MODALITY CHIROPRAC 1/> AREAS TIC CENTE HOT/COLD PACKS APPL 89739 NALLELY COLÓN MODALITY 1 KHOA 1/> AREAS CHIROPRAC ELEC TIC CENTE STIMJ UNATTENDE D CHIROPRAC 19295 NALLELY COLÓN TIC 1 KHOA MANIPULAT CHIROPRAC BEATRIZ TX TIC CENTE SPINAL 3-4 REGIONS APPL 18344 NALLELY BROWNING MODALITY 1 1/> AREAS CHIROPRAC CHIROPRAC TRACTION TIC CENTE TIC CENTE MECHANICA L CHIROPRAC 39697 NALLELY COLÓN TIC 1 KHOA MANIPLTV CHIROPRAC TX TIC CENTE EXTRASPIN AL 1/> REGION CHIROPRAC 02041 NALLELY COLÓN TIC 1 KHOA MANIPLTV CHIROPRAC TX TIC CENTE EXTRASPIN AL 1/> REGION APPL 18570 NALLELY COLÓN MODALITY 1 KHOA 1/> AREAS CHIROPRAC ELEC TIC CENTE STIMJ UNATTENDE D CHIROPRAC 09776 NALLELY COLÓN TIC 1 KHOA MANIPULAT CHIROPRAC BEATRIZ TX TIC CENTE SPINAL 3-4 REGIONS APPLICATI 00540 NALLELY COLÓN ON 1 KHOA MODALITY CHIROPRAC 1/> AREAS TIC CENTE HOT/COLD PACKS APPL 44674 NALLELY COLÓN MODALITY 1 KHOA 1/> AREAS CHIROPRAC TRACTION TIC CENTE MECHANICA L APPLICATI 43852 NALLELY COLÓN ON 1 KHOA MODALITY CHIROPRAC 1/> AREAS TIC CENTE HOT/COLD PACKS CHIROPRAC 75467 NALLELY COLÓN TIC 1 KHOA MANIPULAT CHIROPRAC BEATRIZ TX TIC CENTE SPINAL 3-4 REGIONS APPL 67509 NALLELY COLÓN MODALITY 1 KHOA 1/> AREAS CHIROPRAC TRACTION TIC CENTE MECHANICA L RADEX 14525 NALLELY COLÓN SPINE 1 KHOA LUMBOSACR CHIROPRAC AL 2/3 TIC CENTE VIEWS APPL 12076 NALLELY COLÓN MODALITY 1 KHOA 1/> AREAS CHIROPRAC ELEC TIC CENTE STIMJ UNATTENDE D CHIROPRAC 88019 NALLELY COLÓN TIC 1 KHOA MANIPLTV CHIROPRAC TX TIC CENTE EXTRASPIN AL 1/> REGION THERAPEUT 37151 ANA FUENTESON IC PX 1/> 1 [facility] AREAS INC INC EACH 15 MIN EXERCISES THERAPEUT 68477 ANA FUENTESON IC PX 1/> 1 [facility] AREAS INC INC EACH 15 MIN EXERCISES THERAPEUT 19962 ANA ANA IC PX 1/> 1 [facility] AREAS INC INC EACH 15 MIN EXERCISES THERAPEUT 21374 ANA ANA IC PX 1/> 1 [facility] AREAS INC INC EACH 15 MIN EXERCISES PHYSICAL 59223 ANA ANA THERAPY 1 [facility] EVALUATIO INC INC N RADEX 96122 [facility] HOSPITAL MINIMUM 3 VIEWS RADIOLOGI [address] [facility] C [facility]AM 0 [facility] COMPL MINIMUM 3 VIEWS RADEX [address] [facility] ANKLE 0 Y Y COMPLETE [facility] MINIMUM 3 VIEWS STANDARD K0001 [facility] WHEELCHAI 0 HOME HOME R CARE, INC CARE, [employer] MANUAL E0961 [facility] WHEELCHAI 0 HOME HOME R ACCESS CARE, INC CARE, INC WHEEL LOCK BRAKE EXT EA MNL E0971 [facility] WHEELCHAI 0 HOME HOME R CARE, INC CARE, INC ACCESSORY ANTI-TIPP ING DEVC EACH RADEX 43103 [facility] SHORT WRIST 0 MEDICAL COMPLETE SERV MINIMUM 3 FOUNDATIO VIEWS RADEX 34016 DAVE SHORT ANKLE 0 MEDICAL COMPLETE SERV MINIMUM 3 FOUNDATIO VIEWS RADIOLOGI 59459 DAVE SHORT C EXAM 0 MEDICAL PELVIS [...] INC ACCESSORY ANTI-TIPP ING DEVC EACH RADEX 24670 [facility]ITAL HOSPITAL MINIMUM 3 VIEWS RADIOLOGI [address] [facility] C EXAM 0 Y [facility] COMPL MINIMUM 3 VIEWS DUP-SCAN [address] [facility] XTR VEINS 0 Y Y HOSPITAL [facility] UNILATERA L/LIMITED STUDY N-INVAS 43422 [place] AYOOB AND PHYSIOLOG 0 MEDICAL IC [...] INC ACCESSORY ANTI-TIPP ING DEVC EACH HOSPITAL 90972 [place] [facility] DIS[facility] 0 MEDICAL GINGER DAY SERV MANAGEMEN FOUNDATIO T 30 MIN/< SBSQ 71318 [place] [address] MEDICAL NAN CARE/DAY SERV 25 FOUNDATIO MINUTES SBSQ 06264 [place] [address] MEDICAL R MINDI CARE/DAY SERV 25 FOUNDATIO MINUTES DUP-SCAN 19888 ALPHONSO ALPHONSO XTR VEINS 0 KESHAWN KESHAWN COMPLETE BILATERAL STUDY SBSQ 12591 [facility] 0 MEDICAL R MINDI CARE/DAY SERV 25 FOUNDATIO MINUTES SBSQ 03884 [facility] 0 MEDICAL R MINDI CARE/DAY SERV 25 FOUNDATIO MINUTES RADEX 66276 [place] SHOULDER 0 MEDICAL JT 1 VIEW SERV FOUNDATIO SBSQ 90542 [facility] 0 MEDICAL R MINDI CARE/DAY SERV 25 FOUNDATIO MINUTES SBSQ 61053 [facility] 0 MEDICAL NAN CARE/DAY SERV 25 FOUNDATIO MINUTES SBSQ 05663 [facility] 0 MEDICAL NAN CARE/DAY SERV 25 FOUNDATIO MINUTES INITIAL 38847 [place] [facility] 0 MEDICAL R MINDI CARE/DAY SERV 50 FOUNDATIO MINUTES GROUND A0425 MERCURYAM MERCURYAM MILEAGE 0 BULAN CE BULAN CE PER [facility] [address]885 [place] [facility] 0 MEDICAL SAURAV DAY SERV MANAGEMEN FOUNDATIO T 30 MIN/< SBSQ 95131 [place] [facility] 0 MEDICAL SAURAV CARE/DAY SERV 15 FOUNDATIO MINUTES RADEX 36142 [place] [facility] 0 MEDICAL COMPLETE SERV MINIMUM 3 FOUNDATIO VIEWS RADEX 74475 [place] [facility] WRIST 2 0 MEDICAL GERSON VIEWS SERV FOUNDATIO SBSQ 20281 [place] [facility] 0 MEDICAL SAURAV CARE/DAY SERV 15 FOUNDATIO MINUTES SBSQ 45444 [place] [facility] 0 MEDICAL SAURAV CARE/DAY SERV 15 FOUNDATIO MINUTES SBSQ 01541 [facility] 0 MEDICAL SAURAV CARE/DAY SERV 15 FOUNDATIO MINUTES RADEX 87738 [place] [facility] 0 MEDICAL COMPLETE SERV MINIMUM 2 FOUNDATIO VIEWS ANESTHESI 87482 [place] HESSELL A ON BONY 0 MEDICAL EUGEN E PELVIS SERV FOUNDATIO CT PELVIS 63128 [place] TW[place] SHORT W/O 0 MEDICAL CONTRAST SERV MATERIAL FOUNDATIO OPTX ANT 85044 [place] [facility] PELV[facility] 0 MEDICAL RAY BONE SERV FX&/DISLC FOUNDATIO INT FIXJ IF PFR PERQ 95035 [place] [facility] SKELETAL 0 MEDICAL RAY FIXATION SERV PST FOUNDATIO PELVIC BONE FX&/DIS RADIOLOGI 87874 [place] [facility]ORT C EXAM 0 MEDICAL PELVIS SERV COMPL FOUNDATIO MINIMUM 3 VIEWS RADEX 43405 [place] [facility] [facility] SHOULDER 0 MEDICAL COMPLETE SERV MINIMUM 2 FOUNDATIO VIEWS INITIAL 62222 [place] [facility] INPATIENT 0 MEDICAL LIZBETH CONSULT SERV NEW/ESTAB FOUNDATIO PT 20 MIN INITIAL 39481 [place] [facility] 0 MEDICAL CLARKE CARE/DAY SERV 70 FOUNDATIO MINUTES DBRDMT 27443 [place] GUT[place]RE[place] FX&/DISLC 0 MEDICAL RAY SUBQ SERV T/M/[place] [address] [place] DISTAL 0 MEDICAL RAY FIBULAR SERV FRACTURE FOUNDATIO LAT MALLEOLUS ANES OPEN 53196 [place] REYMANN PROC 0 MEDICAL PAUL BONES SERVICES LOWER LEG/ANKLE /FOOT NOS RADIOLOGI 09599 [place]TI[facility] C 0 MEDICAL GERSON EXAMINATI SERV ON CHE[place] [address] [place] MUSE THORACIC 0 MEDICAL DYLON SPINE W/O SERV CONTRAST FOUNDATIO MATERIAL NJX 59742 [place] RETROGRAD 0 MEDICAL GERSON [place] [address] [place] LOWERY ABDOMEN 0 MEDICAL BEBA W/CONTRAS SERV T FOUNDATIO MATERIAL URETHROCY 96060 [place] STOGRAPHY 0 MEDICAL GERSON SERV RETROGRAD FOUNDATIO E RS&I RADEX 01035 [place] SHOULDER 0 MEDICAL GERSON COMPLETE SERV MINIMUM [address] LUMBAR [address] [place] MUSE SPINE 0 MEDICAL DYLON W/O SERV CONTRAST FOUNDAT[place] MATERIAL RADIOLOGI 99148 [place] ORTI[place] C 0 MEDICAL GERSON EXAMINATI SERV ON PELVIS FOUNDATIO 1/2 VIEWS RADIOLOGI 58282 [place] ORTI[place] C 0 MEDICAL GERSON EXAMINATI SERV ON TIBIA FOUNDATIO & FIBULA 2 VIEWS ECG 17618 [place] JORI C ROUTINE 0 MEDICAL ECG SERV W/LEAST FOUNDATIO 12 LDS I&R ONLY CT PELVIS 33613 [place] ATTILI W/O & 0 MEDICAL ANI [place] [address] [place]USE CERVICAL 0 MEDICAL DYLON SPINE W/O SERV CONTRAST FOUNDAT[place] MATERIAL RADIOLOGI 08691 [place] ORTIZ C EXAM 0 MEDICAL GERSON PELVIS SERV COMPL FOUNDATIO MINIMUM 3 VIEWS RADEX 30156 [place] TRENT JAM ANKLE 0 MEDICAL COMPLETE SERV MINIMUM 3 FOUNDATIO VIEWS RADEX 82181 [place] FOOT 0 MEDICAL GERSON COMPLETE SERV MINIMUM 3 FOUNDATIO VIEWS AMB [id number] PETROLEUM PETROLEUM SERVICE 0 CONVNTION HELICOPTE HELICOPTE AIR SRVC RS INC RS INC TRANSPORT [address] Encounters Encounter Start End Date Code Location Performer Type Date OFFICE [address]88 [place] DANIEL OUTPATIEN 7 7 MEDICAL T VISIT SERV 15 FOUNDATIO MINUTES N OFFICE 40194 [place] OUTPAT[place] 6 6 MEDICAL T VISIT SERV 15 FOUNDATIO MINUTES N OFFICE 70086 [place] SCO OUTPATIEN 6 6 MEDICAL T VISIT SERV 15 FOUNDATIO MINUTES N OFFICE 94428 [place] SCO OUTPATIEN 6 6 MEDICAL T VISIT SERV 25 FOUNDATIO MINUTES N OFFICE 76434 [place]ANI[place] SCO OUTPATIEN 6 6 MEDICAL T VISIT SERV 15 FOUNDATIO MINUTES [facility] - 6 6 [facility] 6 6 [facility] 6 6 [facility] 5 5 [facility] 5 5 [facility] UN[facility]ERS[facility] - 5 5 [facility] T OFFICE 21376 [facility] 5 5 Y T VISIT 5 HOSPITAL MINUTES OFFICE 03356 SUNNI MOELLER [facility] 5 5 NANCY NANCY T VISIT 15 MINUTES OFFICE 04169 DAVE DANIEL SCO OUTPATIEN 5 5 MEDICAL T VISIT SERV 25 FOUNDATIO MINUTES N OFFICE 33343 [place] OUTPATIEN 5 5 MEDICAL T VISIT SERV 15 FOUNDATIO MINUTES N OFFICE 40658 DAVE DANIEL SCO OUTPATIEN 5 5 MEDICAL T VISIT SERV 25 FOUNDATIO MINUTES HOSPITAL UNIVERSIT - 5 5 Y [facility] T OFFICE 59551 [place] DANIEL SAADO OUTPATIEN 5 5 MEDICAL T VISIT SERV 15 FOUNDATIO MINUTES N OFFICE 97548 DAVE SANCHEZ SAADO OUTPATIEN 5 5 MEDICAL T VISIT SERV 15 FOUNDATIO MINUTES N Emergency CLEMENTE Wynn MD (ER) 4 11:25 4 12:22 [facility] EMERGENCY 03634 NEAL PULIDO 4 4 EMERGENCY DEPARTMEN SERVICES T VISIT MODERATE SEVERITY OFFICE 96530 SUNNI MOELLER OUTPATIEN 4 4 NANCY NANCY T VISIT 40 MINUTES OFFICE 09539 DAVE SANCHEZ JAMES OUTPATIEN 3 3 MEDICAL T VISIT SERV 25 FOUNDATIO MINUTES N OFFICE 09154 DAVE SANCHEZ SAADO OUTPATIEN 3 3 MEDICAL T VISIT SERV 25 FOUNDATIO MINUTES [facility]OSPITAL ANA - 3 3 [facility] OUTPATIEN INC T EMERGENCY 68626 ANA 3 3 [facility] DEPARTMEN INC T VISIT LOW/MODER SEVERITY EMERGENCY 42074 NEAL PHILIPPE 3 3 EMERGENCY DEPARTMEN SERVICES T VISIT MODERATE SEVERITY OFFICE 17501 DEWEY HAM DEWEY HAM OUTPATIEN 2 2 T VISIT 15 MINUTES OFFICE 17518 DEWEY HAM DEWEY HAM OUTPATIEN 2 2 T NEW 45 MINUTES OFFICE 00265 JULIANNEELIEL JULIANNEELIEL OUTPATIEN 2 2 NANCY NANCY T VISIT 15 MINUTES OFFICE 32660 DAVE KEARNEY OUTPATIEN 2 2 MEDICAL MAGAN T VISIT SERV 15 FOUNDATIO MINUTES HOSPITAL UNIVERSIT - 2 2 Y [facility] HOSPITAL UNIVERSIT - 2 2 Y [facility] T OFFICE 68220 DAVE GUTIERREZ OUTPATIEN 2 2 MEDICAL [place]AY T VISIT SERV 15 FOUNDATIO MINUTES OFFICE 68338 DAVE NASHO OUTPATIEN 2 2 MEDICAL T VISIT SERV 25 FOUNDATIO MINUTES OFFICE 80587 DAVE RAMIREZ OUTPATIEN 2 2 MEDICAL T VISIT SERV 25 FOUNDATIO MINUTES HOSPITAL ANA - 2 2 [facility] T OFFICE 35358 DAVE RAMIREZ OUTPATIEN 1 1 MEDICAL T VISIT SERV 15 FOUNDATIO MINUTES OFFICE 50860 DAVE KEARNEY OUTPATIEN 1 1 MEDICAL MAGAN T VISIT SERV 15 [facility] UNIVERSIT - 1 1 [facility] T OFFICE 47579 DAVE RAMIREZ OUTPATIEN 1 1 MEDICAL T VISIT SERV 25 [facility] UNIVERSIT - 1 1 [facility] T OFFICE 61248 DAVE GUTIERREZ OUTPATIEN 1 1 MEDICAL [place]AY T VISIT SERV 10 FOUNDATIO MINUTES OFFICE 81579 DAVE GUTIERREZ OUTPATIEN 1 1 MEDICAL [place]AY T VISIT SERV 15 [facility] UNIVERSIT - 1 1 Y [facility] T OFFICE 01955 NALLELY COLÓN OUTPATIEN 1 1 [facility] T NEW 30 [facility] 90462 SUNNI MOELLER OUTPATIEN 1 1 NANCY NANCY T NEW 30 MINUTES HOSPITAL ANA - 1 1 [facility] 1 [facility] 15292 [facility]AVE GUTIERREZ OUTPATIEN 1 1 MEDICAL [place]AY T VISIT SERV 15 [facility] UNIVERSIT - 0 0 Y [facility] UNIVERSIT - 0 0 [facility] - 0 0 [facility] EMERGENCY 76947 DAVE MOORE 0 0 MEDICAL [facility] SERV T VISIT FOUNDATIO MODERATE SEVERITY [facility]ERSIT - 0 0 [facility] EMERGENC[facility] 68224 UNIVERSIT 0 0 Y [facility] HOSPITAL T VISIT LOW/MODER SEVERITY EMERGENCY 11825 DAVE IRELAND DEPT 0 0 MEDICAL KHOA VISIT SERV HIGH FOUNDATIO SEVERITY& THREAT FUNCJ
--- OUTSIDE RECORDS SUMMARY | 2017-07-15 10:14 | External Medical Summary Rpt ---
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 95661 NALLELY COLÓN TIC 1 [facility] MANIPLTV CHIROPRAC TX TIC CENTE EXTRASPIN AL 1/> REGION APPL 15948 NALLELY COLÓN MODALITY 1 KHOA 1/> AREAS CHIROPRAC ELEC TIC CENTE STIMJ UNATTENDE D CHIROPRAC 14523 NALLELY COLÓN TIC 1 KHOA MANIPULAT CHIROPRAC BEATRIZ TX TIC CENTE SPINAL 3-4 REGIONS APPL 44039 NALLELY COLÓN MODALITY 1 KHOA 1/> AREAS CHIROPRAC TRACTION TIC CENTE MECHANICA L APPLICATI 29970 NALLELY COLÓN ON 1 [facility] MODALITY CHIROPRAC 1/> AREAS TIC CENTE HOT/COLD PACKS NEUROPLAS 81586 [place] [facility] [place] 1 MEDICAL MAGAN &/TRANSPO SERV S MEDIAN FOUNDATIO NRV CARPAL TUNNE INJECTION 36078 [place] [facility] 1 MEDICAL MAGAN THERAPEUT SERV IC CARPAL FOUNDATIO TUNNEL CHIROPRAC 56959 NALLELY COLÓN TIC 1 [facility] MANIPULAT CHIROPRAC BEATRIZ [place] TIC CENTE SPINAL 3-4 REGIONS APPLICATI 07919 NALLELY COLÓN ON 1 KHOA MODALITY CHIROPRAC 1/> AREAS TIC CENTE HOT/COLD PACKS APPL 92552 NALLELY COLÓN MODALITY 1 KHOA 1/> AREAS CHIROPRAC TRACTION TIC CENTE MECHANICA L APPL 75093 NALLELY COLÓN MODALITY 1 KHOA 1/> AREAS CHIROPRAC ELEC TIC CENTE STIMJ UNATTENDE D CHIROPRAC 75945 NALLELY COLÓN TIC 1 KHOA MANIPLTV CHIROPRAC TX TIC CENTE EXTRASPIN AL 1/> REGION NRV CNDJ 25661 [facility] AMPLT&LAT 1 Y Y [facility] HOSPITAL NRV MOTOR W/F-WAVE STD NRV CNDJ 99427 [facility] AMPLITUDE 1 Y Y & HOSPITAL HOSPITAL LATENCY EACH NERVE SENSORY NDL EMG 1 91369 [facility] XTR W/WO 1 Y Y [facility] H[facility]PITAL PARASPINA L AREAS APPL 94808 NALLELY COLÓN MODALITY 1 KOHA 1/> AREAS CHIROPRAC TRACTION TIC CENTE MECHANICA L APPLICATI 56050 NALLELY COLÓN ON 1 [facility] MODALITY CHIROPRAC 1/> AREAS TIC CENTE HOT/COLD PACKS CHIROPRAC 56556 NALLELY COLÓN TIC 1 KHOA MANIPULAT CHIROPRAC BEATRIZ TX TIC CENTE SPINAL 3-4 REGIONS APPL 17449 NALLELY COLÓN MODALITY 1 KHOA 1/> AREAS CHIROPRAC ELEC TIC CENTE STIMJ UNATTENDE D CHIROPRAC 82706 NALLELY COLÓN TIC 1 KHOA MANIPLTV CHIROPRAC TX TIC CENTE EXTRASPIN AL 1/> REGION CHIROPRAC 16953 [place] TIC 1 KHOA MANIPLTV CHIROPRAC TX TIC CENTE EXTRASPIN AL 1/> REGION APPL 29647 NALLELY COLÓN MODALITY 1 KHOA 1/> AREAS CHIROPRAC ELEC TIC CENTE STIMJ UNATTENDE D CHIROPRAC 71577 NALLELY COLÓN TIC 1 KHOA MANIPULAT CHIROPRAC BEATRIZ TX TIC CENTE SPINAL 3-4 REGIONS MANUAL 15719 NALLELY COLÓN THERAPY 1 KHOA TQS 1/> CHIROPRAC REGIONS TIC CENTE EACH 15 MINUTES APPLICATI 09260 NALLELY COLÓN ON 1 K[facility]A MODALITY CHIROPRAC 1/> AREAS TIC CENTE HOT/COLD PACKS APPL 76971 NALLELY COLÓN MODALITY 1 KHOA 1/> AREAS CHIROPRAC TRACTION TIC CENTE MECHANICA L ARTHROCEN 13274 [place] DANIEL ARIZMENDI 1 MEDICAL ASPIR&/IN SERV J INTERM FOUNDATIO JT/BURS W/O US INJECTION [id number] DAVE SANCHEZ SCO 1 MEDICAL TRIAMCINO SERV LONE FOUNDATIO ACETONIDE NOS 10 MG MRI ANY 30057 [facility] [place] UPPER 1 Y Y EXTREMITY [facility] W/CONTRAS T MATRL INJECTION 97912 [facility] SHOULDER 1 Y Y [facility] ARTHROGRA PHY/ CT/MRI ARTHG RADEX 60454 [facility] SHOULDER 1 Y Y ARTHROGRA [facility] PHY RS&I CHIROPRAC 30054 NALLELY COLÓN TIC 1 [facility]A MANIPULAT CHIROPRAC BEATRIZ TX TIC CENTE SPINAL 3-4 REGIONS APPL 95648 NALLELY COLÓN MODALITY 1 KHOA 1/> AREAS CHIROPRAC TRACTION TIC CENTE MECHANICA L APPLICATI 76051 NALLELY COLÓN ON 1 K[facility]A MODALITY CHIROPRAC 1/> AREAS TIC CENTE HOT/COLD PACKS APPL 32162 NALLELY COLÓN MODALITY 1 KHOA 1/> AREAS CHIROPRAC ELEC TIC CENTE STIMJ UNATTENDE D CHIROPRAC 47143 NALLELY COLÓN TIC 1 KHOA MANIPLTV CHIROPRAC TX TIC CENTE EXTRASPIN AL 1/> REGION CHIROPRAC 55863 NALLELY COLÓN TIC 1 KHOA MANIPLTV CHIROPRAC TX TIC CENTE EXTRASPIN AL 1/> REGION APPLICATI 17645 NALLELY COLÓN ON 1 KHOA MODALITY CHIROPRAC 1/> AREAS TIC CENTE HOT/COLD PACKS CHIROPRAC 76382 NALLELY COLÓN TIC 1 KHOA MANIPULAT CHIROPRAC BEATRIZ TX TIC CENTE SPINAL 3-4 REGIONS APPL 86607 NALLELY COLÓN MODALITY 1 KHOA 1/> AREAS CHIROPRAC ELEC TIC CENTE STIMJ UNATTENDE D APPL 23098 NALLELY COLÓN MODALITY 1 KHOA 1/> AREAS CHIROPRAC TRACTION TIC CENTE MECHANICA L APPL 33611 NALLELY COLÓN MODALITY 1 KHOA 1/> AREAS CHIROPRAC TRACTION TIC CENTE MECHANICA L CHIROPRAC 75958 NALLELY COLÓN TIC 1 KHOA MANIPULAT CHIROPRAC BEATRIZ TX TIC CENTE SPINAL 3-4 REGIONS APPLICATI 58905 NALLELY COLÓN ON 1 K[facility]A MODALITY CHIROPRAC 1/> AREAS TIC CENTE HOT/COLD PACKS APPL 46484 NALLELY COLÓN MODALITY 1 KHOA 1/> AREAS CHIROPRAC ELEC TIC CENTE STIMJ UNATTENDE D CHIROPRAC 66495 NALLELY COLÓN TIC 1 KHOA MANIPLTV CHIROPRAC TX TIC CENTE EXTRASPIN AL 1/> REGION CHIROPRAC 06925 NALLELY COLÓN TIC 1 KHOA MANIPLTV CHIROPRAC TX TIC CENTE EXTRASPIN AL 1/> REGION APPL 51817 NALLELY COLÓN MODALITY 1 KHOA 1/> AREAS CHIROPRAC ELEC TIC CENTE STIMJ UNATTENDE D APPLICATI 60239 NALLELY COLÓN ON 1 KHOA MODALITY CHIROPRAC 1/> AREAS TIC CENTE HOT/COLD PACKS APPL 42507 NALLELY COLÓN MODALITY 1 KHOA 1/> AREAS CHIROPRAC TRACTION TIC CENTE MECHANICA L CHIROPRAC 92334 NALLELY COLÓN TIC 1 KHOA MANIPULAT CHIROPRAC BEATRIZ [place] TIC CENTE SPINAL 3-4 REGIONS RADIOLOGI 29226 [facility] C 1 Y Y [facility] ON PELVIS 1/2 VIEWS RADEX 66043 [facility] ANKLE 1 Y Y [facility] MINIMUM 3 VIEWS APPL 04770 NALLELY COLÓN MODALITY 1 KHOA 1/> AREAS CHIROPRAC TRACTION TIC CENTE MECHANICA L APPLICATI 18454 NALLELY COLÓN ON 1 KHOA MODALITY CHIROPRAC 1/> AREAS TIC CENTE HOT/COLD PACKS CHIROPRAC 07645 NALLELY COLÓN TIC 1 KHOA MANIPULAT CHIROPRAC BEATRIZ TX TIC CENTE SPINAL 3-4 REGIONS APPL 77038 NALLELY COLÓN MODALITY 1 KHOA 1/> AREAS CHIROPRAC ELEC TIC CENTE STIMJ UNATTENDE D CHIROPRAC 22561 NALLELY COLÓN TIC 1 KHOA MANIPLTV CHIROPRAC TX TIC CENTE EXTRASPIN AL 1/> [place] [address] CHARAN FARRAR LIP 1 LUIS MANUEL LUIS MANUEL APPL 82032 NALLELY BROWNING MODALITY 1 1/> AREAS CHIROPRAC CHIROPRAC TRACTION TIC CENTE TIC CENTE MECHANICA L CHIROPRAC 44260 NALLELY COLÓN TIC 1 KHOA MANIPULAT CHIROPRAC BEATRIZ TX TIC CENTE SPINAL 3-4 REGIONS CHIROPRAC 73830 NALLELY COLÓN TIC 1 KHOA MANIPLTV CHIROPRAC TX TIC CENTE EXTRASPIN AL 1/> REGION APPL 61444 NALLELY COLÓN MODALITY 1 KHOA 1/> AREAS CHIROPRAC ELEC TIC CENTE STIMJ UNATTENDE D APPL 69940 NALLELY COLÓN MODALITY 1 KHOA 1/> AREAS CHIROPRAC ELEC TIC CENTE STIMJ UNATTENDE D CHIROPRAC 72718 NALLELY COLÓN TIC 1 KHOA MANIPLTV CHIROPRAC TX TIC CENTE EXTRASPIN AL 1/> REGION CHIROPRAC 65585 NALLELY COLÓN TIC 1 KHOA MANIPULAT CHIROPRAC BEATRIZ TX TIC CENTE SPINAL 3-4 REGIONS APPL 94058 NALLELY COLÓN MODALITY 1 KHOA 1/> AREAS CHIROPRAC TRACTION TIC CENTE MECHANICA L APPLICATI 68807 NALLELY COLÓN ON 1 KHOA MODALITY CHIROPRAC 1/> AREAS TIC CENTE HOT/COLD PACKS APPL 02152 NALLELY COLÓN MODALITY 1 KHOA 1/> AREAS CHIROPRAC TRACTION TIC CENTE MECHANICA L APPLICATI 17622 NALLELY COLÓN ON 1 K[facility]A MODALITY CHIROPRAC 1/> AREAS TIC CENTE HOT/COLD PACKS CHIROPRAC 60612 NALLELY COLÓN TIC 1 KHOA MANIPULAT CHIROPRAC BEATRIZ TX TIC CENTE SPINAL 3-4 REGIONS CHIROPRAC 23682 NALLELY COLÓN TIC 1 KHOA MANIPLTV CHIROPRAC TX TIC CENTE EXTRASPIN AL 1/> REGION APPL 92481 NALLELY COLÓN MODALITY 1 KHOA 1/> AREAS CHIROPRAC ELEC TIC CENTE STIMJ UNATTENDE D APPL 42966 NALLELY COLÓN MODALITY 1 KHOA 1/> AREAS CHIROPRAC ELEC TIC CENTE STIMJ UNATTENDE D CHIROPRAC 68752 NALLELY COLÓN TIC 1 KHOA MANIPLTV CHIROPRAC TX TIC CENTE EXTRASPIN AL 1/> REGION APPLICATI 38613 NALLELY COLÓN ON 1 KHOA MODALITY CHIROPRAC 1/> AREAS TIC CENTE HOT/COLD PACKS APPL 58779 NALLELY COLÓN MODALITY 1 KHOA 1/> AREAS CHIROPRAC TRACTION TIC CENTE MECHANICA L CHIROPRAC 57055 NALLELY COLÓN TIC 1 KHOA MANIPULAT CHIROPRAC BEATRIZ TX TIC CENTE SPINAL 3-4 REGIONS APPL 97985 NALLELY COLÓN MODALITY 1 KHOA 1/> AREAS CHIROPRAC TRACTION TIC CENTE MECHANICA L APPLICATI 17214 NALLELY COLÓN ON 1 KHOA MODALITY CHIROPRAC 1/> AREAS TIC CENTE HOT/COLD PACKS CHIROPRAC 17622 NALLELY COLÓN TIC 1 KHOA MANIPULAT CHIROPRAC BEATRIZ TX TIC CENTE SPINAL 3-4 REGIONS CHIROPRAC 65416 NALLELY COLÓN TIC 1 KHOA MANIPLTV CHIROPRAC TX TIC CENTE EXTRASPIN AL 1/> REGION APPL 91404 NALLELY COLÓN MODALITY 1 KHOA 1/> AREAS CHIROPRAC ELEC TIC CENTE STIMJ UNATTENDE D APPL 18657 NALLELY COLÓN MODALITY 1 KHOA 1/> AREAS CHIROPRAC ELEC TIC CENTE STIMJ UNATTENDE D CHIROPRAC 60258 NALLELY COLÓN TIC 1 KHOA MANIPLTV CHIROPRAC TX TIC CENTE EXTRASPIN AL 1/> REGION APPLICATI 00612 NALLELY COLÓN ON 1 KHOA MODALITY CHIROPRAC 1/> AREAS TIC CENTE HOT/COLD PACKS CHIROPRAC 46903 NALLELY COLÓN TIC 1 KHOA MANIPULAT CHIROPRAC BEATRIZ TX TIC CENTE SPINAL 3-4 REGIONS APPL 10797 NALLELY COLÓN MODALITY 1 KHOA 1/> AREAS CHIROPRAC TRACTION TIC CENTE MECHANICA L APPL 39630 NALLELY COLÓN MODALITY 1 KHOA 1/> AREAS CHIROPRAC TRACTION TIC CENTE MECHANICA L APPLICATI 68375 NALLELY COLÓN ON 1 KHOA MODALITY CHIROPRAC 1/> AREAS TIC CENTE HOT/COLD PACKS CHIROPRAC 42405 NALLELY OCLÓN TIC 1 KHOA MANIPLTV CHIROPRAC TX TIC CENTE EXTRASPIN AL 1/> REGION CHIROPRAC 54412 NALLELY COLÓN TIC 1 KHOA MANIPULAT CHIROPRAC BEATRIZ TX TIC CENTE SPINAL 3-4 REGIONS APPL 08475 NALLELY COLÓN MODALITY 1 KHOA 1/> AREAS CHIROPRAC ELEC TIC CENTE STIMJ UNATTENDE D APPL 11673 NALLELY COLÓN MODALITY 1 KHOA 1/> AREAS CHIROPRAC ELEC TIC CENTE STIMJ UNATTENDE D CHIROPRAC 36912 NALLELY COLÓN TIC 1 KHOA MANIPLTV CHIROPRAC TX TIC CENTE EXTRASPIN AL 1/> REGION APPLICATI 04933 NALLELY COLÓN ON 1 KHOA MODALITY CHIROPRAC 1/> AREAS TIC CENTE HOT/COLD PACKS APPL 93562 NALLELY COLÓN MODALITY 1 KHOA 1/> AREAS CHIROPRAC TRACTION TIC CENTE MECHANICA L CHIROPRAC 78931 NALLELY COLÓN TIC 1 KHOA MANIPULAT CHIROPRAC BEATRIZ TX TIC CENTE SPINAL 3-4 REGIONS CHIROPRAC 77503 NALLELY COLÓN TIC 1 KHOA MANIPULAT CHIROPRAC BEATRIZ TX TIC CENTE SPINAL 3-4 REGIONS APPL 86368 NALLELY COLÓN MODALITY 1 KHOA 1/> AREAS CHIROPRAC TRACTION TIC CENTE MECHANICA L APPLICATI 19004 NALLELY COLÓN ON 1 KHOA MODALITY CHIROPRAC 1/> AREAS TIC CENTE HOT/COLD PACKS CHIROPRAC 17307 NALLELY COLÓN TIC 1 KHOA MANIPLTV CHIROPRAC TX TIC CENTE EXTRASPIN AL 1/> REGION APPL 35620 NALLELY COLÓN MODALITY 1 KHOA 1/> AREAS CHIROPRAC ELEC TIC CENTE STIMJ UNATTENDE D CHIROPRAC 67035 NALLELY COLÓN TIC 1 KHOA MANIPLTV CHIROPRAC TX TIC CENTE EXTRASPIN AL 1/> REGION APPLICATI 55900 NALLELY COLÓN ON 1 KHOA MODALITY CHIROPRAC 1/> AREAS TIC CENTE HOT/COLD PACKS CHIROPRAC 14415 NALLELY COLÓN TIC 1 KHOA MANIPULAT CHIROPRAC BEATRIZ TX TIC CENTE SPINAL 3-4 REGIONS APPL 03494 NALLELY BROWNING MODALITY 1 1/> AREAS CHIROPRAC CHIROPRAC ELEC TIC CENTE TIC CENTE STIMJ UNATTENDE D APPL 83699 NALLELY COLÓN MODALITY 1 KHOA 1/> AREAS CHIROPRAC ELEC TIC CENTE STIMJ UNATTENDE D CHIROPRAC 19884 NALLELY COLÓN TIC 1 KHOA MANIPULAT CHIROPRAC BEATRIZ TX TIC CENTE SPINAL 3-4 REGIONS APPLICATI 21360 NALLELY COLÓN ON 1 KHOA MODALITY CHIROPRAC 1/> AREAS TIC CENTE HOT/COLD PACKS APPL 10183 NALLELY COLÓN MODALITY 1 KHOA 1/> AREAS CHIROPRAC TRACTION TIC CENTE MECHANICA L CHIROPRAC 25499 NALLELY COLÓN TIC 1 KHOA MANIPLTV CHIROPRAC TX TIC CENTE EXTRASPIN AL 1/> REGION CHIROPRAC 27814 NALLELY COLÓN TIC 1 KHOA MANIPLTV CHIROPRAC TX TIC CENTE EXTRASPIN AL 1/> REGION APPL 72752 NALLELY COLÓN MODALITY 1 KHOA 1/> AREAS CHIROPRAC TRACTION TIC CENTE MECHANICA L APPLICATI 09997 NALLELY COLÓN ON 1 KHOA MODALITY CHIROPRAC 1/> AREAS TIC CENTE HOT/COLD PACKS CHIROPRAC 22611 NALLELY COLÓN TIC 1 KHOA MANIPULAT CHIROPRAC BEATRIZ TX TIC CENTE SPINAL 3-4 REGIONS APPL 60523 NALLELY COLÓN MODALITY 1 KHAO 1/> AREAS CHIROPRAC ELEC TIC CENTE STIMJ UNATTENDE D APPL 29017 CYNBRO COLÓN MODALITY 1 KHOA 1/> AREAS CHIROPRAC ELEC TIC CENTE STIMJ UNATTENDE D CHIROPRAC 98068 NALLELY COLÓN TIC 1 KHOA MANIPULAT CHIROPRAC BEATRIZ TX TIC CENTE SPINAL 3-4 REGIONS APPL 88088 NALLELY BROWNING MODALITY 1 1/> AREAS CHIROPRAC CHIROPRAC TRACTION TIC CENTE TIC CENTE MECHANICA L CHIROPRAC 20659 NALLELY COLÓN TIC 1 KHOA MANIPLTV CHIROPRAC TX TIC CENTE EXTRASPIN AL 1/> REGION CHIROPRAC 58419 NALLELY COLÓN TIC 1 KHOA MANIPLTV CHIROPRAC TX TIC CENTE EXTRASPIN AL 1/> REGION APPL 04661 NALLELY COLÓN MODALITY 1 KHOA 1/> AREAS CHIROPRAC TRACTION TIC CENTE MECHANICA L APPLICATI 99711 NALLELY COLÓN ON 1 KHOA MODALITY CHIROPRAC 1/> AREAS TIC CENTE HOT/COLD PACKS CHIROPRAC 62756 NALLELY COLÓN TIC 1 KHOA MANIPULAT CHIROPRAC BEATRIZ TX TIC CENTE SPINAL 3-4 REGIONS APPL 41063 NALLELY COLÓN MODALITY 1 KHOA 1/> AREAS CHIROPRAC ELEC TIC CENTE STIMJ UNATTENDE D APPL 45985 NALLELY COLÓN MODALITY 1 KHOA 1/> AREAS CHIROPRAC ELEC TIC CENTE STIMJ UNATTENDE D CHIROPRAC 95794 NALLELY COLÓN TIC 1 KHOA MANIPULAT CHIROPRAC BEATRIZ TX TIC CENTE SPINAL 3-4 REGIONS APPLICATI 97995 NALLELY COLÓN ON 1 KHOA MODALITY CHIROPRAC 1/> AREAS TIC CENTE HOT/COLD PACKS APPL 06007 NALLELY COLÓN MODALITY 1 KHOA 1/> AREAS CHIROPRAC TRACTION TIC CENTE MECHANICA L CHIROPRAC 29925 NALLELY COLÓN TIC 1 KHOA MANIPLTV CHIROPRAC TX TIC CENTE EXTRASPIN AL 1/> REGION RADEX 60990 NALLELY COLÓN SPINE 1 KOHA LUMBOSACR CHIROPRAC AL 2/3 TIC CENTE VIEWS THERAPEUT 33663 ANA ANA IC PX 1/> 1 [facility] INC INC EACH 15 MIN EXERCISES THERAPEUT 56400 ANA ANA IC PX 1/> 1 [facility]AS INC INC EACH 15 MIN EXERCISES THERAPEUT 71151 ANA ANA IC PX 1/> 1 [facility]AS INC INC EACH 15 MIN EXERCISES THERAPEUT 42229 ANA ANA IC PX 1/> 1 [facility]AS INC INC EACH 15 MIN EXERCISES PHYSICAL 05634 ANA PEREZ THERAPY 1 [facility] EVALUATIO INC INC N RADEX 23434 [facility] ANKLE 0 Y [facility] MINIMUM 3 VIEWS RADEX 78939 [facility] WRIST 0 Y Y [facility]TE [facility] MINIMUM 3 VIEWS RADIOLOGI 02841 [facility] C EXAM 0 Y Y [facility] COMPL MINIMUM 3 VIEWS STANDARD K0001 [facility] WHEELCH[facility] 0 HOME HOME R CARE, INC CARE, INC MNL E0971 [facility] WHEELCH[facility] 0 HOME HOME R CARE, INC CARE, INC ACCESSORY ANTI-TIPP ING DEVC EACH MANUAL E0961 [facility] WHEEL[facility] 0 HOME HOME R ACCESS CARE, INC CARE, INC WHEEL LOCK BRAKE EXT EA RADEX 20218 [facility] MINIMUM 3 VIEWS RADEX 64194 [facility] MINIMUM 3 VIEWS RADIOLOGI 78510 [facility] C EXAM 0 Y [facility] COMPL MINIMUM 3 VIEWS STANDARD K0001 [facility] WHEELCHAI 0 HOME HOME R CARE, INC CARE, INC MNL E0971 [facility] WHEELCH[facility] 0 HOME HOME R CARE, INC CARE, INC ACCESSORY ANTI-TIPP ING DEVC EACH MANUAL E0961 [facility] WHEELCH[facility] 0 HOME HOME R ACCESS CARE, INC CARE, INC WHEEL LOCK BRAKE EXT EA RADEX 73274 [facility] W[facility] MINIMUM 3 VIEWS RADIOLOGI 77068 [facility] C EXAM 0 Y [facility] COMPL MINIMUM 3 VIEWS N-INVAS 28566 [place] AYOO[facility] AND PHYSIOLOG 0 MEDICAL IC STD SERV XTR VEINS FOUNDATIO COMPL BI STD DUP-SCAN 46605 [facility] XTR VEINS 0 Y Y [facility]OSPITAL [facility]PITAL UNILATERA L/LIMITED STUDY MANUAL E0961 [facility] WHEELCHAI 0 HOME HOME R ACCESS CARE, INC CARE, INC WHEEL LOCK BRAKE EXT EA MNL E0971 [facility] WHEEL[facility] 0 HOME HOME R CARE, INC CARE, INC ACCESSORY ANTI-TIPP ING DEVC EACH STANDARD K0001 [facility] WHEELCH[facility] 0 HOME HOME R CARE, INC CARE, INC HOSPITAL 29818 [place] [facility] DIS[facility]GE 0 MEDICAL GINGER DAY SERV MANAGEMEN FOUNDATIO T 30 MIN/< SBSQ 43541 [facility] 0 MEDICAL NAN CARE/DAY SERV 25 FOUNDATIO MINUTES SBSQ 42740 [facility] 0 MEDICAL R MINDI CARE/DAY SERV 25 FOUNDATIO MINUTES DUP-SCAN 97755 ALPHONSO ALPHONSO XTR VEINS 0 KESHAWN KESHAWN COMPLETE BILATERAL STUDY SBSQ 92027 [place] [facility] 0 MEDICAL R MINDI CARE/DAY SERV 25 FOUNDATIO MINUTES SBSQ 59159 [facility] 0 MEDICAL R MINDI CARE/DAY SERV 25 FOUNDATIO MINUTES RADEX 13217 [place] [facility] 0 MEDICAL JT 1 VIEW SERV FOUNDATIO SBSQ 63700 [facility] 0 MEDICAL R MINDI CARE/DAY SERV 25 FOUNDATIO MINUTES SBSQ 08381 [facility] 0 MEDICAL NAN CARE/DAY SERV 25 FOUNDATIO MINUTES SBSQ 35711 [facility] 0 MEDICAL NAN CARE/DAY SERV 25 FOUNDATIO MINUTES INITIAL 12478 [facility] 0 MEDICAL R MINDI CARE/DAY SERV 50 FOUNDATIO MINUTES GROUND A0425 MERCURY[facility] MERCURYAM MILEAGE 0 BULAN CE [facility] [address] [facility] 0 MEDICAL SAURAV DAY SERV MANAGEMEN FOUNDATIO T 30 MIN/< RADEX 60252 [place] [facility] WRIST 0 MEDICAL COMPLETE SERV MINIMUM 3 FOUNDATIO VIEWS SBSQ 22544 [facility] 0 MEDICAL SAURAV CARE/DAY SERV 15 FOUNDATIO MINUTES SBSQ 46132 [facility] 0 MEDICAL SAURAV CARE/DAY SERV 15 FOUNDATIO MINUTES RADEX 28254 [place] [facility] WRIST 2 0 MEDICAL GERSON VIEWS SERV FOUNDATIO SBSQ 47514 [facility] 0 MEDICAL SAURAV CARE/DAY SERV 15 FOUNDATIO MINUTES SBSQ 57248 [facility] 0 MEDICAL SAURAV CARE/DAY SERV 15 FOUNDATIO MINUTES RADEX 42366 [place] [facility] 0 MEDICAL COMPLETE SERV MINIMUM 2 FOUNDATIO VIEWS PERQ 68755 [place] [facility] SKELETAL 0 MEDICAL RAY FIXATION SERV PST FOUNDATIO PELVIC BONE FX&/DIS OPTX ANT 16032 [place] [facility] PELVIC 0 MEDICAL RAY BONE SERV FX&/DISLC FOUNDATIO INT FIXJ IF PFR ANESTHESI 73277 [place] [facility] [place] BONY 0 MEDICAL EUGEN E PELVIS SERV FOUNDATIO CT PELVIS 71502 [place] [facility] SHORT W/O 0 MEDICAL CONTRAST SERV MATERIAL FOUNDATIO RADIOLOGI 97926 [place] [facility] C EXAM 0 MEDICAL PELVIS SERV COMPL FOUNDATIO MINIMUM 3 VIEWS RADEX 08566 [place] [facility] [facility] SHOULDER 0 MEDICAL COMPLETE SERV MINIMUM 2 FOUNDATIO VIEWS INITIAL 86677 [place] INPATIENT 0 MEDICAL LIZBETH CONSULT SERV NEW/ESTAB FOUNDATIO PT 20 MIN INITIAL 06283 [place] [facility] 0 MEDICAL CLARKE CARE/DAY SERV 70 FOUNDATIO MINUTES DBRDMT 44948 [place] FX&/DISLC 0 MEDICAL RAY SUBQ SERV T/M/F FOUNDAT[place] BONE ANES OPEN 04283 [place] [facility] PROC 0 MEDICAL PAUL BONES SERVICES LOWER LEG/ANKLE /[place] [address] [place] DISTAL 0 MEDICAL RAY FIBULAR SERV FRACTURE F[facility]AT[place] LAT MALLEOLUS RADEX 31131 [place] [facility] ANKLE 0 MEDICAL GERSON COMPLETE SERV MINIMUM 3 [place]WS NJX [address]25 [place] RETROGRAD 0 MEDICAL GERSON [place] [address] [place] ABDOMEN 0 MEDICAL BEBA W/CONTRAS SERV T FOUNDAT[facility] MATERIAL URETHROCY 01684 [place] [facility] STOGRAPHY 0 MEDICAL GERSON SERV RETROGRAD FOUNDATIO E RS&I RADEX 82264 [place] FOOT 0 MEDICAL GERSON COMPLETE SERV MINIMUM 3 FOUNDATIO VIEWS RADIOLOGI 29118 [place] C 0 MEDICAL GERSON EXAMINATI SERV ON TIBIA FOUNDATIO & FIBULA 2 VIEWS AMB A0431 PETROLEUM PETROLEUM SERVICE 0 CONVNTION HELICOPTE HELICOPTE AIR SRVC RS INC RS INC TRANSPORT [address] RADEX 80855 [place] SHOULDER 0 MEDICAL GERSON COMPLETE SERV MINIMUM [address] LUMBAR 98305 [place] MUSE SPINE 0 MEDICAL DYLON W/O SERV CONTRAST FOUNDAT[place] MATERIAL RADIOLOGI 39157 [place] [facility] C 0 MEDICAL GERSON EXAMINATI SERV ON PELVIS FOUNDATIO 1/2 VIEWS RADIOLOGI 63056 [place] [facility] C EXAM 0 MEDICAL GERSON PELVIS SERV COMPL [place] [address] [place] [address] [place] MUSE CERVICAL 0 MEDICAL DYLON SPINE W/O SERV CONTRAST FOUNDAT[place] MATERIAL RADIOLOGI 05122 [place] C 0 MEDICAL GERSON EXAMINATI SERV ON [place] [address] [place] MUSE THORACIC 0 MEDICAL DYLON SPINE W/O SERV CONTRAST FOUNDATIO MATERIAL CT PELVIS 72831 [place] ATTILI W/O & 0 MEDICAL ANI W/CONTRAS SERV T FOUNDATIO MATERIAL ECG 72967 [place] JORI C ROUTINE 0 MEDICAL ECG SERV W/LEAST FOUNDATIO 12 LDS I&R ONLY Encounters Encounter Start End Date Code Location Performer Type Date OFFICE 93173 [place] [facility] OUTPATIEN 7 7 MEDICAL T VISIT SERV 15 [facility]OUNDAT[place] MINUTES N OFFICE 52359 [place] OUTPATI[place] 6 6 MEDICAL T VISIT SERV 15 FOUNDAT[place] MINUTES N OFFICE 78854 [place] SCO OUTPATIEN 6 6 MEDICAL T VISIT SERV 15 FOUNDATIO MINUTES N OFFICE 58275 [place] [facility] OUTPATIEN 6 6 MEDICAL T VISIT SERV 25 [facility]OUNDAT[place] MINUTES N OFFICE 73795 [place] [facility] [facility] OUTPATIEN 6 6 MEDICAL T VISIT SERV 15 [facility]OUNDATIO MINUTES [facility] 5 5 [facility] 5 [facility] 5 5 Y [facility] OFFICE 29694 UNIVERSIT OUTPATIEN 5 5 Y T VISIT 5 HOSPITAL MINUTES OFFICE 02532 SUNNI MOELLER OUTPATIEN 5 5 NANCY NANCY T VISIT 15 MINUTES OFFICE 47270 DAVE DANIEL SCO OUTPATIEN 5 5 MEDICAL T VISIT SERV 25 FOUNDATIO MINUTES N OFFICE 65060 [place] OUTPATIEN 5 5 MEDICAL T VISIT SERV 15 FOUNDATIO MINUTES N OFFICE 57504 DAVE DANIEL SCO OUTPATIEN 5 5 MEDICAL T VISIT SERV 25 FOUNDATIO MINUTES N HOSPITAL UNIVERSIT - 5 5 Y OUTPATIEN HOSPITAL T OFFICE 41836 DAVE DANIEL SCO OUTPATIEN 5 5 MEDICAL T VISIT SERV 15 FOUNDATIO MINUTES N OFFICE 13720 DAVE DANIEL SCO OUTPATIEN 5 5 MEDICAL T VISIT SERV 15 FOUNDATIO MINUTES N EMERGENCY 04219 NEAL PULIDO 4 4 EMERGENCY DEPARTMEN SERVICES T VISIT MODERATE SEVERITY OFFICE 07753 SUNNI MOELLER OUTPATIEN 4 4 NANCY NANCY T VISIT 40 MINUTES OFFICE 98562 DAVE DANIEL SCO OUTPATIEN 3 3 MEDICAL T VISIT SERV 25 FOUNDATIO MINUTES N OFFICE 33461 DAVE SANCHEZ SCO OUTPATIEN 3 3 MEDICAL T VISIT SERV 25 FOUNDATIO MINUTES EMERGENCY 93918 ANA 3 3 [facility] DEPARTMEN INC T VISIT LOW/MODER SEVERITY HOSPITAL ANA - 3 3 [facility] OUTPATIEN INC T EMERGENCY 34082 NEAL PHILIPPE 3 3 EMERGENCY DEPARTMEN SERVICES T VISIT MODERATE SEVERITY OFFICE 80448 DEWEY HAM DEWEY HAM OUTPATIEN 2 2 T VISIT 15 MINUTES OFFICE 90145 DEWEY HAM DEWEY HAM OUTPATIEN 2 2 T NEW 45 MINUTES OFFICE 44529 SUNNI MOELLER OUTPATIEN 2 2 NANCY NANCY T VISIT 15 [facility] UNIVERSIT - 2 2 Y [facility] T OFFICE 19667 DAVE [facility] [place] 2 2 MEDICAL MAGAN T VISIT SERV 15 FOUNDATIO [facility] UNIVERSIT - 2 2 Y [facility] T OFFICE 60990 DAVE GUTIERREZ OUTPATIEN 2 2 MEDICAL RAY T VISIT SERV 15 FOUNDATIO MINUTES OFFICE 42360 DAVE SANCHEZ SCO OUTPATIEN 2 2 MEDICAL T VISIT SERV 25 FOUNDATIO MINUTES OFFICE 64804 DAVE CARMONAIR SCO OUTPATIEN 2 2 MEDICAL T VISIT SERV 25 FOUNDATIO MINUTES [facility] ANA - 2 2 [facility] T OFFICE 19414 DAVE SANCHEZ JAMES OUTPATIEN 1 1 MEDICAL T VISIT SERV 15 FOUNDATIO MINUTES OFFICE 07182 DAVE [facility] [place] 1 1 MEDICAL MAGAN T VISIT SERV 15 FOUNDATIO [facility] UNIVERSIT - 1 1 Y [facility] T OFFICE 07956 DAVE SANCHEZ [facility] [place] 1 1 MED[facility] T V[facility] 1 1 Y [facility] T OFFICE 78148 DAVE GUTIERREZ [facility] [place] 1 1 MEDICAL [place]AY T VISIT SERV 10 FOUNDATIO MINUTES OFFICE 20728 DAVE GUTIERREZ OUTPATIEN 1 1 MEDICAL RAY T VISIT SERV 15 FOUNDATIO [facility] UNIVERS[facility] - 1 1 Y [facility] T OFFICE 22197 NALLELY COLÓN OUTPATIEN 1 1 KHOA T NEW 30 CHIROPRAC MINUTES [facility] OFFICE 37142 ARNOLD ARNOLD OUTPATIEN 1 1 NANCY NANCY T NEW 30 MINUTES [facility] ANA - 1 1 [facility] 1 [facility] OFF[facility] 96585 DAVE GUTIERREZ OUTPATIEN 1 1 MEDICAL [place] T VISIT SERV 15 FOUNDATIO MINUTES [facility] UNIVERSIT - 0 0 Y [facility] - 0 0 Y [facility] 0 0 Y [facility] - 0 0 Y [facility] EMERGENCY [id number] UNIVERSIT 0 0 Y [facility] HOSPITAL T VISIT LOW/MODER SEVERITY EMERGENCY [id number] DAVE MOORE 0 0 MEDICAL KARY [facility] SERV T VISIT FOUNDATIO MODERATE SEVERITY EMERGENCY [id number] DAVE [place] DEPT 0 0 [facility]ICAL [facility] VISIT SERV HIGH FOUNDATIO SEVERITY& THREAT FUNCJ
--- OUTSIDE RECORDS SUMMARY | 2017-07-15 10:14 | External Medical Summary Rpt ---
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 MEDICAL MAGAN &/TRANSPO SERV S MEDIAN FOUNDATIO NRV CARPAL TUNNE INJECTION 56556 [place] [facility] 1 MEDICAL MAGAN THERAPEUT SERV IC CARPAL FOUNDATIO TUNNEL CHIROPRAC 15423 NALLELY COLÓN TIC 1 KHOA MANIPULAT CHIROPRAC BEATRIZ [place] TIC CENTE SPINAL 3-4 REGIONS APPLICATI 46816 NALLELY COLÓN ON 1 KHOA MODALITY CHIROPRAC 1/> AREAS TIC CENTE HOT/COLD PACKS APPL 10961 NALLELY COLÓN MODALITY 1 KHOA 1/> AREAS CHIROPRAC TRACTION TIC CENTE MECHANICA L APPL 37403 NALLELY COLÓN MODALITY 1 KHOA 1/> AREAS CHIROPRAC ELEC TIC CENTE STIMJ UNATTENDE D CHIROPRAC 45935 NALLELY COLÓN TIC 1 KHOA MANIPLTV CHIROPRAC TX TIC CENTE EXTRASPIN AL 1/> REGION NRV CNDJ 49180 [facility] AMPLT&LAT 1 Y Y [facility] HOSPITAL NRV MOTOR W/F-WAVE STD NRV CNDJ 44659 [facility] AMPLITUDE 1 Y Y & HOSPITAL HOSPITAL LATENCY EACH NERVE SENSORY NDL EMG 1 96963 [facility] XTR W/WO 1 Y Y RELATED [facility] HOSPITAL PARASPINA L AREAS APPL 28181 NALLELY OCLÓN MODALITY 1 KHOA 1/> AREAS CHIROPRAC TRACTION TIC CENTE MECHANICA L APPLICATI 24572 NALLELY COLÓN ON 1 KHOA MODALITY CHIROPRAC 1/> AREAS TIC CENTE HOT/COLD PACKS CHIROPRAC 93105 NALLELY COLÓN TIC 1 KHOA MANIPULAT CHIROPRAC BEATRIZ TX TIC CENTE SPINAL 3-4 REGIONS APPL 41162 NALLELY COLÓN MODALITY 1 KHOA 1/> AREAS CHIROPRAC ELEC TIC CENTE STIMJ UNATTENDE D CHIROPRAC 62675 NALLELY COLÓN TIC 1 KHOA MANIPLTV CHIROPRAC TX TIC CENTE EXTRASPIN AL 1/> REGION CHIROPRAC 43842 [place] KATARZYNA TIC 1 KHOA MANIPLTV CHIROPRAC TX TIC CENTE EXTRASPIN AL 1/> REGION APPL 26335 NALLELY COLÓN MODALITY 1 KHOA 1/> AREAS CHIROPRAC ELEC TIC CENTE STIMJ UNATTENDE D CHIROPRAC 51418 NALLELY COLÓN TIC 1 KHOA MANIPULAT CHIROPRAC BEATRIZ TX TIC CENTE SPINAL 3-4 REGIONS MANUAL 16122 NALLELY COLÓN THERAPY 1 KHOA TQS 1/> CHIROPRAC REGIONS TIC CENTE EACH 15 MINUTES APPLICATI 50765 NALLELY COLÓN ON 1 KHOA MODALITY CHIROPRAC 1/> AREAS TIC CENTE HOT/COLD PACKS APPL 92789 NALLELY COLÓN MODALITY 1 KHOA 1/> AREAS CHIROPRAC TRACTION TIC CENTE MECHANICA L ARTHROCEN 82117 [place] DANIEL ARIZMENDI 1 MEDICAL ASPIR&/IN SERV J INTERM FOUNDATIO JT/BURS W/O US INJECTION J3301 DAVE SANCHEZ SCO 1 MEDICAL TRIAMCINO SERV LONE FOUNDATIO ACETONIDE NOS 10 MG [place] ANY [address] [facility] UPPER 1 Y Y EXTREMITY [facility] W/CONTRAS T MATRL INJECTION 94961 [facility] SHOULDER 1 Y Y [facility] ARTHROGRA PHY/ CT/MRI ARTHG RADEX 27601 [facility] SHOULDER 1 Y Y ARTHROGRA [facility] PHY RS&I CHIROPRAC 09879 NALLELY COLÓN TIC 1 KHOA MANIPULAT CHIROPRAC BEATRIZ TX TIC CENTE SPINAL 3-4 REGIONS APPL 43878 NALLELY COLÓN MODALITY 1 KHOA 1/> AREAS CHIROPRAC TRACTION TIC CENTE MECHANICA L APPLICATI 38899 NALLELY COLÓN ON 1 KHOA MODALITY CHIROPRAC 1/> AREAS TIC CENTE HOT/COLD PACKS APPL 91378 NALLELY COLÓN MODALITY 1 KHOA 1/> AREAS CHIROPRAC ELEC TIC CENTE STIMJ UNATTENDE D CHIROPRAC 63168 NALLELY COLÓN TIC 1 KHOA MANIPLTV CHIROPRAC TX TIC CENTE EXTRASPIN AL 1/> REGION CHIROPRAC 34356 NALLELY COLÓN TIC 1 KHOA MANIPLTV CHIROPRAC TX TIC CENTE EXTRASPIN AL 1/> REGION APPLICATI 50353 NALLELY COLÓN ON 1 KHOA MODALITY CHIROPRAC 1/> AREAS TIC CENTE HOT/COLD PACKS CHIROPRAC 87571 NALLELY COLÓN TIC 1 KHOA MANIPULAT CHIROPRAC BEATRIZ TX TIC CENTE SPINAL 3-4 REGIONS APPL 27427 NALLELY COLÓN MODALITY 1 KHOA 1/> AREAS CHIROPRAC ELEC TIC CENTE STIMJ UNATTENDE D APPL 29640 NALLELY COLÓN MODALITY 1 KHOA 1/> AREAS CHIROPRAC TRACTION TIC CENTE MECHANICA L APPL 82783 NALLELY COLÓN MODALITY 1 KHOA 1/> AREAS CHIROPRAC TRACTION TIC CENTE MECHANICA L CHIROPRAC 07551 NALLELY COLÓN TIC 1 KHOA MANIPULAT CHIROPRAC BEATRIZ TX TIC CENTE SPINAL 3-4 REGIONS APPLICATI 20087 NALLELY COLÓN ON 1 KHOA MODALITY CHIROPRAC 1/> AREAS TIC CENTE HOT/COLD PACKS APPL 40501 NALLELY COLÓN MODALITY 1 KHOA 1/> AREAS CHIROPRAC ELEC TIC CENTE STIMJ UNATTENDE D CHIROPRAC 57524 NALLELY COLÓN TIC 1 KHOA MANIPLTV CHIROPRAC TX TIC CENTE EXTRASPIN AL 1/> REGION CHIROPRAC 71266 NALLELY COLNÓ TIC 1 KHOA MANIPLTV CHIROPRAC TX TIC CENTE EXTRASPIN AL 1/> REGION APPL 65192 NALLELY COLÓN MODALITY 1 KHOA 1/> AREAS CHIROPRAC ELEC TIC CENTE STIMJ UNATTENDE D APPLICATI 10073 NALLELY COLÓN ON 1 KHOA MODALITY CHIROPRAC 1/> AREAS TIC CENTE HOT/COLD PACKS APPL 48577 NALLELY COLÓN MODALITY 1 KHOA 1/> AREAS CHIROPRAC TRACTION TIC CENTE MECHANICA L CHIROPRAC 83844 NALLELY COLÓN TIC 1 KHOA MANIPULAT CHIROPRAC BEATRIZ TX TIC CENTE SPINAL 3-4 REGIONS RADIOLOGI 84523 [facility] C 1 Y Y [facility] ON PELVIS 1/2 VIEWS RADEX 21760 [facility] ANKLE 1 Y Y [facility] MINIMUM 3 VIEWS APPL 83902 NALLELY COLÓN MODALITY 1 KHOA 1/> AREAS CHIROPRAC TRACTION TIC CENTE MECHANICA L APPLICATI 10439 NALLELY COLÓN ON 1 KHOA MODALITY CHIROPRAC 1/> AREAS TIC CENTE HOT/COLD PACKS CHIROPRAC 71964 NALLELY COLÓN TIC 1 KHOA MANIPULAT CHIROPRAC BEATRIZ TX TIC CENTE SPINAL 3-4 REGIONS APPL 25541 NALLELY COLÓN MODALITY 1 KHOA 1/> AREAS CHIROPRAC ELEC TIC CENTE STIMJ UNATTENDE D CHIROPRAC 21953 NALLELY COLÓN TIC 1 KHOA MANIPLTV CHIROPRAC TX TIC CENTE EXTRASPIN AL 1/> REGION [facility] [address] CHARAN FARRAR LIP 1 LUIS MANUEL LUIS MANUEL APPL 75248 NALLELY BROWNING MODALITY 1 1/> AREAS CHIROPRAC CHIROPRAC TRACTION TIC CENTE TIC CENTE MECHANICA L CHIROPRAC 71941 NALLELY COLÓN TIC 1 KHOA MANIPULAT CHIROPRAC BEATRIZ TX TIC CENTE SPINAL 3-4 REGIONS CHIROPRAC 11578 NALLELY COLÓN TIC 1 KHOA MANIPLTV CHIROPRAC TX TIC CENTE EXTRASPIN AL 1/> REGION APPL 89079 NALLELY COLÓN MODALITY 1 KHOA 1/> AREAS CHIROPRAC ELEC TIC CENTE STIMJ UNATTENDE D APPL 16087 NALLELY COLÓN MODALITY 1 KHOA 1/> AREAS CHIROPRAC ELEC TIC CENTE STIMJ UNATTENDE D CHIROPRAC 22096 NALLELY COLÓN TIC 1 KHOA MANIPLTV CHIROPRAC TX TIC CENTE EXTRASPIN AL 1/> REGION CHIROPRAC 48156 NALLELY COLÓN TIC 1 KHOA MANIPULAT CHIROPRAC BEATRIZ TX TIC CENTE SPINAL 3-4 REGIONS APPL 37612 NALLELY COLÓN MODALITY 1 KHOA 1/> AREAS CHIROPRAC TRACTION TIC CENTE MECHANICA L APPLICATI 57457 NALLELY COLÓN ON 1 KHOA MODALITY CHIROPRAC 1/> AREAS TIC CENTE HOT/COLD PACKS APPL 30831 NALLELY COLÓN MODALITY 1 KHOA 1/> AREAS CHIROPRAC TRACTION TIC CENTE MECHANICA L APPLICATI 61693 NALLELY COLÓN ON 1 KHOA MODALITY CHIROPRAC 1/> AREAS TIC CENTE HOT/COLD PACKS CHIROPRAC 09551 NALLELY COLÓN TIC 1 KHOA MANIPULAT CHIROPRAC BEATRIZ TX TIC CENTE SPINAL 3-4 REGIONS CHIROPRAC 68916 NALLELY COLÓN TIC 1 KHOA MANIPLTV CHIROPRAC TX TIC CENTE EXTRASPIN AL 1/> REGION APPL 32085 NALLELY COLÓN MODALITY 1 KHOA 1/> AREAS CHIROPRAC ELEC TIC CENTE STIMJ UNATTENDE D APPL 69030 NALLELY COLÓN MODALITY 1 KHOA 1/> AREAS CHIROPRAC ELEC TIC CENTE STIMJ UNATTENDE D CHIROPRAC 67433 NLALELY COLÓN TIC 1 KHOA MANIPLTV CHIROPRAC TX TIC CENTE EXTRASPIN AL 1/> REGION APPLICATI 17780 NALLELY COLÓN ON 1 KHOA MODALITY CHIROPRAC 1/> AREAS TIC CENTE HOT/COLD PACKS APPL 07285 NALLELY COLÓN MODALITY 1 KHOA 1/> AREAS CHIROPRAC TRACTION TIC CENTE MECHANICA L CHIROPRAC 60037 NALLELY COLÓN TIC 1 KHOA MANIPULAT CHIROPRAC BEATRIZ TX TIC CENTE SPINAL 3-4 REGIONS APPL 95497 NALLELY COLÓN MODALITY 1 KHOA 1/> AREAS CHIROPRAC TRACTION TIC CENTE MECHANICA L APPLICATI 41243 NALLELY COLÓN ON 1 KHOA MODALITY CHIROPRAC 1/> AREAS TIC CENTE HOT/COLD PACKS CHIROPRAC 24561 NALLELY COLÓN TIC 1 KHOA MANIPULAT CHIROPRAC BEATRIZ TX TIC CENTE SPINAL 3-4 REGIONS CHIROPRAC 71252 NALLELY COLÓN TIC 1 KHOA MANIPLTV CHIROPRAC TX TIC CENTE EXTRASPIN AL 1/> REGION APPL 71168 NALLELY COLÓN MODALITY 1 KHOA 1/> AREAS CHIROPRAC ELEC TIC CENTE STIMJ UNATTENDE D APPL 58015 NALLELY COLÓN MODALITY 1 KHOA 1/> AREAS CHIROPRAC ELEC TIC CENTE STIMJ UNATTENDE D CHIROPRAC 16914 NALLELY COLÓN TIC 1 KHOA MANIPLTV CHIROPRAC TX TIC CENTE EXTRASPIN AL 1/> REGION APPLICATI 80973 NALLELY COLÓN ON 1 KHOA MODALITY CHIROPRAC 1/> AREAS TIC CENTE HOT/COLD PACKS CHIROPRAC 12045 NALLELY COLÓN TIC 1 KHOA MANIPULAT CHIROPRAC BEATRIZ TX TIC CENTE SPINAL 3-4 REGIONS APPL 54539 NALLELY COLÓN MODALITY 1 KHOA 1/> AREAS CHIROPRAC TRACTION TIC CENTE MECHANICA L APPL 61302 NALLELY COLÓN MODALITY 1 KHOA 1/> AREAS CHIROPRAC TRACTION TIC CENTE MECHANICA L APPLICATI 02551 NALLELY COLÓN ON 1 KHOA MODALITY CHIROPRAC 1/> AREAS TIC CENTE HOT/COLD PACKS CHIROPRAC 40576 NALLELY COLÓN TIC 1 KHOA MANIPLTV CHIROPRAC TX TIC CENTE EXTRASPIN AL 1/> REGION CHIROPRAC 68979 NALLELY COLÓN TIC 1 KHOA MANIPULAT CHIROPRAC BEATRIZ TX TIC CENTE SPINAL 3-4 REGIONS APPL 74822 NALLELY COLÓN MODALITY 1 KHOA 1/> AREAS CHIROPRAC ELEC TIC CENTE STIMJ UNATTENDE D APPL 24632 NALLELY COLÓN MODALITY 1 KHOA 1/> AREAS CHIROPRAC ELEC TIC CENTE STIMJ UNATTENDE D CHIROPRAC 50671 NALLELY COLÓN TIC 1 KHOA MANIPLTV CHIROPRAC TX TIC CENTE EXTRASPIN AL 1/> REGION APPLICATI 97169 NALLELY COLÓN ON 1 KHOA MODALITY CHIROPRAC 1/> AREAS TIC CENTE HOT/COLD PACKS APPL 91017 NALLELY COLÓN MODALITY 1 KHOA 1/> AREAS CHIROPRAC TRACTION TIC CENTE MECHANICA L CHIROPRAC 62627 NALLELY COLÓN TIC 1 KHOA MANIPULAT CHIROPRAC BEATRIZ TX TIC CENTE SPINAL 3-4 REGIONS CHIROPRAC 47598 NALLELY COLÓN TIC 1 KHOA MANIPULAT CHIROPRAC BEATRIZ TX TIC CENTE SPINAL 3-4 REGIONS APPL 03764 NALLELY COLÓN MODALITY 1 KHOA 1/> AREAS CHIROPRAC TRACTION TIC CENTE MECHANICA L APPLICATI 91091 NALLELY COLÓN ON 1 KHOA MODALITY CHIROPRAC 1/> AREAS TIC CENTE HOT/COLD PACKS CHIROPRAC 78200 NALLELY COLÓN TIC 1 KHOA MANIPLTV CHIROPRAC TX TIC CENTE EXTRASPIN AL 1/> REGION APPL 43627 NALLELY COLÓN MODALITY 1 KHOA 1/> AREAS CHIROPRAC ELEC TIC CENTE STIMJ UNATTENDE D CHIROPRAC 36515 NALLELY COLÓN TIC 1 KHOA MANIPLTV CHIROPRAC TX TIC CENTE EXTRASPIN AL 1/> REGION APPLICATI 60603 NALLELY COLÓN ON 1 KHOA MODALITY CHIROPRAC 1/> AREAS TIC CENTE HOT/COLD PACKS CHIROPRAC 96960 NALLELY COLÓN TIC 1 KHOA MANIPULAT CHIROPRAC BEATRIZ TX TIC CENTE SPINAL 3-4 REGIONS APPL 80146 NALLELY BROWNING MODALITY 1 1/> AREAS CHIROPRAC CHIROPRAC ELEC TIC CENTE TIC CENTE STIMJ UNATTENDE D APPL 87638 NALLELY COLÓN MODALITY 1 KHOA 1/> AREAS CHIROPRAC ELEC TIC CENTE STIMJ UNATTENDE D CHIROPRAC 47362 NALLELY COLÓN TIC 1 KHOA MANIPULAT CHIROPRAC BEATRIZ TX TIC CENTE SPINAL 3-4 REGIONS APPLICATI 65672 NALLELY COLÓN ON 1 KHOA MODALITY CHIROPRAC 1/> AREAS TIC CENTE HOT/COLD PACKS APPL 34785 NALLELY COLÓN MODALITY 1 KHOA 1/> AREAS CHIROPRAC TRACTION TIC CENTE MECHANICA L CHIROPRAC 33230 NALLELY COLÓN TIC 1 KHOA MANIPLTV CHIROPRAC TX TIC CENTE EXTRASPIN AL 1/> REGION CHIROPRAC 67134 NALLELY COLÓN TIC 1 KHOA MANIPLTV CHIROPRAC TX TIC CENTE EXTRASPIN AL 1/> REGION APPL 36678 NALLELY COLÓN MODALITY 1 KHOA 1/> AREAS CHIROPRAC TRACTION TIC CENTE MECHANICA L APPLICATI 31471 NALLELY COLÓN ON 1 KHOA MODALITY CHIROPRAC 1/> AREAS TIC CENTE HOT/COLD PACKS CHIROPRAC 96418 NALLELY COLÓN TIC 1 KHOA MANIPULAT CHIROPRAC BEATRIZ TX TIC CENTE SPINAL 3-4 REGIONS APPL 76936 NALLELY COLÓN MODALITY 1 KHOA 1/> AREAS CHIROPRAC ELEC TIC CENTE STIMJ UNATTENDE D APPL 76049 CYNBRO COLÓN MODALITY 1 KHOA 1/> AREAS CHIROPRAC ELEC TIC CENTE STIMJ UNATTENDE D CHIROPRAC 63033 NALLELY COLÓN TIC 1 KHOA MANIPULAT CHIROPRAC BEATRIZ TX TIC CENTE SPINAL 3-4 REGIONS APPL 89251 NALLELY BROWNING MODALITY 1 1/> AREAS CHIROPRAC CHIROPRAC TRACTION TIC CENTE TIC CENTE MECHANICA L CHIROPRAC 74344 NALLELY COLÓN TIC 1 KHOA MANIPLTV CHIROPRAC TX TIC CENTE EXTRASPIN AL 1/> REGION CHIROPRAC 95934 NALLELY COLÓN TIC 1 KHOA MANIPLTV CHIROPRAC TX TIC CENTE EXTRASPIN AL 1/> REGION APPL 49930 NALLELY COLÓN MODALITY 1 KHOA 1/> AREAS CHIROPRAC TRACTION TIC CENTE MECHANICA L APPLICATI 27720 NALLELY COLÓN ON 1 KHOA MODALITY CHIROPRAC 1/> AREAS TIC CENTE HOT/COLD PACKS CHIROPRAC 47870 NALLELY COLÓN TIC 1 KHOA MANIPULAT CHIROPRAC BEARTIZ TX TIC CENTE SPINAL 3-4 REGIONS APPL 11981 NALLELY COLÓN MODALITY 1 KHOA 1/> AREAS CHIROPRAC ELEC TIC CENTE STIMJ UNATTENDE D APPL 01240 NALLELY COLÓN MODALITY 1 KHOA 1/> AREAS CHIROPRAC ELEC TIC CENTE STIMJ UNATTENDE D CHIROPRAC 68049 NALLELY COLÓN TIC 1 KHOA MANIPULAT CHIROPRAC BEATRIZ TX TIC CENTE SPINAL 3-4 REGIONS APPLICATI 90494 NALLELY COLÓN ON 1 KHOA MODALITY CHIROPRAC 1/> AREAS TIC CENTE HOT/COLD PACKS APPL 46037 NALLELY COLÓN MODALITY 1 KHOA 1/> AREAS CHIROPRAC TRACTION TIC CENTE MECHANICA L CHIROPRAC 19434 NALLELY COLÓN TIC 1 KHOA MANIPLTV CHIROPRAC TX TIC CENTE EXTRASPIN AL 1/> REGION RADEX 59748 NALLELY COLÓN SPINE 1 KHOA LUMBOSACR CHIROPRAC AL 2/3 TIC CENTE VIEWS THERAPEUT 48428 ANA ANA IC PX 1/> 1 [facility] AREAS INC INC EACH 15 MIN EXERCISES THERAPEUT 44227 ANA ANA IC PX 1/> 1 [facility] AREAS INC INC EACH 15 MIN EXERCISES THERAPEUT 98300 ANA ANA IC PX 1/> 1 [facility] AREAS INC INC EACH 15 MIN EXERCISES THERAPEUT 76178 ANA ANA IC PX 1/> 1 [facility] AREAS INC INC EACH 15 MIN EXERCISES PHYSICAL 56404 ANA PEREZ THERAPY 1 [facility] EVALUATIO INC INC N RADEX 22658 [facility] ANKLE 0 Y [facility]PITAL MINIMUM 3 VIEWS RADEX 83182 [facility] WRIST 0 Y Y [facility]PLETE [facility] MINIMUM 3 VIEWS RADIOLOGI 63737 [facility] C EXAM 0 Y Y [facility]PITAL COMPL MINIMUM 3 VIEWS STANDARD K0001 [facility]ELCH[facility] 0 HOME HOME R CARE, INC CARE, INC MNL E0971 [facility] 0 HOME HOME R CARE, INC CARE, INC ACCESSORY ANTI-TIPP ING DEVC EACH MANUAL E0961 [facility] 0 HOME HOME R ACCESS CARE, INC CARE, INC WHEEL LOCK BRAKE EXT EA RADEX 09734 [facility] MINIMUM 3 VIEWS RADEX 84225 [facility] WRIST 0 Y Y [facility] HOSPITAL MINIMUM 3 VIEWS RADIOLOGI 91729 [facility] C EXAM 0 Y [...] INC WHEEL LOCK BRAKE EXT EA RADEX 31917 [facility]ITAL MINIMUM 3 VIEWS RADIOLOGI 66990 [facility] C EXAM 0 Y [facility] COMPL MINIMUM 3 VIEWS N-INVAS 10044 [facility] AYOOB AND PHYSIOLOG 0 MEDICAL IC STD SERV XTR VEINS FOUNDATIO COMPL BI STD DUP-SCAN 08519 [facility] XTR VEINS 0 Y Y HOSPITAL HOSPITAL UNILATERA L/LIMITED STUDY MANUAL E0961 [facility] WHEELCHAI 0 HOME HOME R ACCESS CARE, INC CARE, INC WHEEL LOCK BRAKE EXT EA MNL E0971 [facility] 0 HOME HOME R CARE, INC CARE, INC ACCESSORY ANTI-TIPP ING DEVC EACH STANDARD K0001 [facility] 0 HOME HOME R CARE, INC CARE, INC HOSPITAL 93912 [place] [facility] DIS[facility] 0 MEDICAL GINGER DAY SERV MANAGEMEN FOUNDATIO T 30 MIN/< SBSQ 65486 [facility] 0 MEDICAL NAN CARE/DAY SERV 25 FOUNDATIO MINUTES SBSQ 86284 [facility] 0 MEDICAL R MINDI CARE/DAY SERV 25 FOUNDATIO MINUTES DUP-SCAN 29816 ALPHONSO ALPHONSO XTR VEINS 0 KESHAWN KESHAWN COMPLETE BILATERAL STUDY SBSQ 23366 [facility] 0 MEDICAL R MINDI CARE/DAY SERV 25 FOUNDATIO MINUTES SBSQ 12201 [facility] 0 MEDICAL R MINDI CARE/DAY SERV 25 FOUNDATIO MINUTES RADEX 38641 [place] [facility] 0 MEDICAL JT 1 VIEW SERV FOUNDATIO SBSQ 74840 [facility] 0 MEDICAL R MINDI CARE/DAY SERV [address]OUNDATIO [address]ES [address] [facility] 0 MEDICAL NAN CARE/DAY SERV 25 FOUNDATIO [address]ES S[address] [facility] 0 MEDICAL NAN CARE/DAY SERV 25 FOUNDATIO MINUTES INITIAL 98513 [facility] 0 MEDICAL R MINDI CARE/DAY SERV 50 FOUNDATIO MINUTES GROUND A0425 MERCURYAM MERCURYAM MILEAGE 0 BULAN CE BULAN CE PER SVCLARKS [facility] 96095 [facility] 0 MEDICAL SAURAV DAY SERV MANAGEMEN FOUNDATIO T 30 MIN/< RADEX 48753 [place] [facility] WRIST 0 MEDICAL COMPLETE SERV MINIMUM 3 FOUNDATIO VIEWS SBSQ 56012 [facility] 0 MEDICAL SAURAV CARE/DAY SERV 15 FOUNDATIO MINUTES SBSQ 47101 [facility] 0 MEDICAL SAURAV CARE/DAY SERV 15 FOUNDATIO MINUTES RADEX 14354 [place] [facility] WRIST 2 0 MEDICAL GERSON VIEWS SERV FOUNDATIO SBSQ 14166 [facility] 0 MEDICAL SAURAV CARE/DAY SERV 15 FOUNDATIO MINUTES SBSQ 62585 [facility] 0 MEDICAL SAURAV CARE/DAY SERV 15 FOUNDATIO MINUTES RADEX 11116 [place] [facility] 0 MEDICAL COMPLETE SERV MINIMUM 2 FOUNDATIO VIEWS PERQ 60558 [place] [facility] SKELETAL 0 MEDICAL RAY FIXATION SERV PST FOUNDATIO PELVIC BONE FX&/DIS OPTX ANT 75944 [place] [facility] PELVIC 0 MEDICAL RAY BONE SERV FX&/DISLC FOUNDATIO INT FIXJ IF PFR ANESTHESI 52018 [place] [facility] BONY 0 MEDICAL EUGEN E PELVIS SERV FOUNDATIO CT PELVIS 82274 [place] [facility] SHORT W/O 0 MEDICAL CONTRAST SERV MATERIAL [facility]OUNDATIO RADIOLOGI 57524 [place] [facility] [facility] [place] EXAM 0 MEDICAL PELVIS SERV COMPL FOUNDATIO MINIMUM 3 VIEWS RADEX 87377 [place] [facility] SHOULDER 0 MEDICAL COMPLETE SERV MINIMUM 2 FOUNDATIO VIEWS INITIAL 46514 [place] [facility] INPATIENT 0 MEDICAL LIZBETH CONSULT SERV NEW/ESTAB FOUNDATIO PT 20 MIN INITIAL 07086 [facility] 0 MEDICAL CLARKE CARE/DAY SERV 70 FOUNDATIO MINUTES DBRDMT 26084 [place] [facility] FX&/DISLC 0 MEDICAL RAY SUBQ SERV T/M/F FOUNDATIO BONE ANES OPEN 21592 [place] [facility] PROC 0 MEDICAL PAUL BONES SERVICES LOWER LEG/ANKLE /[place] [address] [place] [facility] DISTAL 0 MEDICAL RAY FIBULAR SERV FRACTURE FOUNDATIO LAT MALLEOLUS RADEX 73285 [place] [facility] ANKLE 0 MEDICAL GERSON COMPLETE SERV MINIMUM 3 FOUNDATIO VIEWS NJX 47206 [place] [facility] RETROGRAD 0 MEDICAL GERSON [place] [address] [place] ABDOMEN 0 MEDICAL BEBA W/CONTRAS SERV T FOUNDATIO MATERIAL URETHROCY 04625 [place] [facility] STOGRAPHY 0 MEDICAL GERSON SERV RETROGRAD FOUNDATIO E RS&I RADEX 56825 [place] [facility] FOOT 0 MEDICAL GERSON COMPLETE SERV MINIMUM 3 FOUNDATIO VIEWS RADIOLOGI 51816 [place] [facility] C 0 MEDICAL GERSON EXAMINATI SERV ON TIBIA FOUNDATIO & FIBULA 2 VIEWS AMB A0431 PETROLEUM PETROLEUM SERVICE 0 CONVNTION HELICOPTE HELICOPTE AIR SRVC RS INC RS INC TRANSPORT [address] RADEX 44896 [place] [facility] SHOULDER 0 MEDICAL GERSON COMPLETE SERV MINIMUM [address] LUMBAR 56812 [place] MUSE SPINE 0 MEDICAL DYLON W/O SERV CONTRAST FOUNDATIO MATERIAL RADIOLOGI 64978 [place] [facility] C 0 MEDICAL GERSON EXAMINATI SERV ON PELVIS FOUNDATIO 1/2 VIEWS RADIOLOGI 44818 [place] [facility] C EXAM 0 MEDICAL GERSON PELVIS SERV COMPL [place]OUNDAT[place] [place] [address] [place] MUSE CERVICAL 0 MEDICAL DYLON SPINE W/O SERV CONTRAST FOUNDAT[place] MATERIAL RADIOLOGI 36111 [place] ORTIZ C 0 MEDICAL GERSON EXAMINATI SERV ON [place] [address] [place] MUSE THORACIC 0 MEDICAL DYLON SPINE W/O SERV CONTRAST FOUNDATIO MATERIAL CT PELVIS 84075 [place] ATTILI W/O & 0 MEDICAL ANI W/CONTRAS SERV T FOUNDATIO MATERIAL ECG 09964 [place] JORI C ROUTINE 0 MEDICAL ECG SERV W/LEAST FOUNDATIO 12 LDS I&R ONLY Encounters Encounter Start End Date Code Location Performer Type Date OFFICE 15277 [place] DANI[place] OUTPATIEN 7 7 MEDICAL T VISIT SERV 15 FOUNDATIO MINUTES N OFFICE 91751 [place]ANI[place] OUTPATI[place] 6 6 MEDICAL T VISIT SERV 15 FOUNDATIO MINUTES N OFFICE 75903 [place] SCO OUTPATIEN 6 6 MEDICAL T VISIT SERV 15 FOUNDATIO MINUTES N OFFICE 08690 [place] OUTPATIEN 6 6 MEDICAL T VISIT SERV 25 FOUNDATIO MINUTES N OFFICE 45519 [place] [facility] OUTPATIEN 6 6 MEDICAL T VISIT SERV 15 FOUNDATIO MINUTES [facility] 5 5 [facility] 5 [facility] UN[facility]ERS[facility] - 5 5 Y [facility] OFFICE 47135 UNIVERSIT OUTPATIEN 5 5 Y T VISIT 5 HOSPITAL MINUTES OFFICE 70552 SUNNI MOELLER OUTPATIEN 5 5 NANCY NANCY T VISIT 15 MINUTES OFFICE 70224 DAVE DANIEL SCO OUTPATIEN 5 5 MEDICAL T VISIT SERV 25 FOUNDATIO MINUTES N OFFICE 04773 [place] OUTPATIEN 5 5 MEDICAL T VISIT SERV 15 FOUNDATIO MINUTES N OFFICE 21365 DAVE DANIEL SCO OUTPATIEN 5 5 MEDICAL T VISIT SERV 25 FOUNDATIO MINUTES N HOSPITAL UNIVERSIT - 5 5 Y OUTPATIEN HOSPITAL T OFFICE 69363 DAVE DANIEL SCO OUTPATIEN 5 5 MEDICAL T VISIT SERV 15 FOUNDATIO MINUTES N OFFICE 85673 DAVE DANIEL SCO OUTPATIEN 5 5 MEDICAL T VISIT SERV 15 FOUNDATIO MINUTES N EMERGENCY 41288 NEAL PULIDO 4 4 EMERGENCY DEPARTMEN SERVICES T VISIT MODERATE SEVERITY OFFICE 78577 SUNNI MOELLER OUTPATIEN 4 4 NANCY NANCY T VISIT 40 MINUTES OFFICE 98061 DAVE DANIEL SCO OUTPATIEN 3 3 MEDICAL T VISIT SERV 25 FOUNDATIO MINUTES N OFFICE 57786 DAVE SANCHEZ SCO OUTPATIEN 3 3 MEDICAL T VISIT SERV 25 FOUNDATIO MINUTES EMERGENCY 32244 NAA 3 3 [facility] DEPARTMEN INC T VISIT LOW/MODER SEVERITY [facility]OSPITAL ANA - 3 3 [facility] OUTPATIEN INC T EMERGENCY 19831 NEAL PHILIPPE 3 3 EMERGENCY DEPARTMEN SERVICES T VISIT MODERATE SEVERITY OFFICE 26898 DEWEY HAM DEWEY HAM OUTPATIEN 2 2 T VISIT 15 MINUTES OFFICE 95808 DEWEY HAM DEWEY HAM OUTPATIEN 2 2 T NEW 45 MINUTES OFFICE 30999 SUNNI MOELLER OUTPATIEN 2 2 NANCY NANCY T VISIT 15 [facility] UNIVERSIT - 2 2 Y [facility] T OFFICE 14244 DAVE [facility] MEDICAL MAGAN T VISIT SERV 15 FOUNDATIO [facility] UNIVERSIT - 2 2 Y [facility] T OFFICE 16315 DAVE GUTIERREZ OUTPATIEN 2 2 MEDICAL [place] T VISIT SERV 15 FOUNDATIO MINUTES OFFICE 40177 DAVE SANCHEZ SCO OUTPATIEN 2 2 MEDICAL T VISIT SERV 25 FOUNDATIO MINUTES OFFICE 82195 DAVE CARMONAIR SCO OUTPATIEN 2 2 MEDICAL T VISIT SERV 25 FOUNDATIO MINUTES [facility] ANA - 2 2 [facility] T OFFICE 99757 DAVE SANCHEZ JAMES OUTPATIEN 1 1 MEDICAL T VISIT SERV 15 FOUNDATIO MINUTES OFFICE 18503 DAVE [facility] 1 MEDICAL MAGAN T VISIT SERV 15 FOUNDATIO [facility] UNIVERSIT - 1 1 Y [facility] T OFFICE 74968 DAVE SANCHEZ [facility] V[facility] 1 1 Y [facility] T OFFICE 04003 [facility]AVE [facility] [place] T VISIT SERV 10 FOUNDATIO MINUTES OFFICE 95611 DAVE GUTIERREZ OUTPATIEN 1 1 [place] T VISIT SERV 15 FOUNDATIO [facility] UNIVERSIT - 1 1 Y [facility] T OFFICE 52639 NALLELY COLÓN OUTPATIEN 1 1 KHOA T NEW 30 CHIROPRAC MINUTES TIC CENTE OFFICE 62703 ARNOLD ARNOLD OUTPATIEN 1 1 NANCY NANCY T NEW 30 MINUTES [facility] ANA - 1 1 MEM [facility] 1 [facility] 73123 DAVE GUTIERREZ OUTPATIEN 1 [address] [place] [place] T VISIT SERV 15 FOUNDATIO MINUTES [facility] UNIVERSIT - 0 0 Y [facility] UNIVERSIT [facility] 0 0 Y [facility] UNIVERSIT - 0 0 Y [facility] UNIVERSIT - 0 0 Y [facility] EMERGENCY 27299 UNIVERSIT 0 0 Y [facility] T VISIT LOW/MODER SEVERITY EMERGENCY 92418 DAVE MOORE 0 0 MEDICAL KARY [facility] SERV T VISIT FOUNDATIO MODERATE SEVERITY EMERGENCY 40900 DAVE [place] DEPT 0 0 MEDICAL [place] VISIT SERV HIGH FOUNDATIO SEVERITY& THREAT FUNCJ
--- OUTSIDE RECORDS SUMMARY | 2017-07-15 10:16 | External Medical Summary Rpt ---
Demographics Preferred Language Chadian Marital Status Unknown [employer] Affiliation Unknown Race Unknown Ethnic Group Unknown Author Author LY Address Unknown Phone Immunization No patient found.
--- OUTSIDE RECORDS SUMMARY | 2017-07-15 10:16 | External Medical Summary Rpt ---
Author Author [facility] Ar[facility], [facility] [employer] Organization [facility] [employer] Address Unknown Phone Unavailable Results Comprehensive metabolic 2000 panel in Serum or Plasma Observa Value Referen Units Interpr Notes Date tion ce etation Range Albumin/G 1.1 - 1.8 No Low No Jul 15 lobulin informati informati 2016 8:09 [Mass on in on in AM ratio] in source source Serum or data data Plasma Albumin 3.4 - 5.0 gm/dL Normal No Jul 15 [Mass/vol informati 2016 8:09 ume] in on in AM Serum or source Plasma data Alkaline 46 - 116 U/L Normal No Jul 15 phosphata informati 2016 8:09 se on in AM [Enzymati source c data activity/ volume] in Serum or Plasma Bilirubin 0.2 - 1.0 mg/dL Normal No Jul 15 .total informati 2016 8:09 [Mass/vol on in AM ume] in source Serum or data Plasma Urea 7 - 18 mg/dL Low No Jul 15 nitrogen informati 2016 8:09 [Mass/vol on in AM ume] in source Serum or data Plasma Calcium 8.5 - mg/dL Normal No Jul 15 [Mass/vol 10.1 informati 2017 8:09 ume] in on in AM Serum or source Plasma data Chloride 98 - 107 mmoL/L Normal No Jul 15 [Moles/vo informati 2017 8:09 lume] in on in AM Serum or source Plasma data Carbon 21.0 - mmoL/L Normal No Jul 15 dioxide, 32.0 informati 2017 8:09 total on in AM [Moles/vo source lume] in data Serum or Plasma Creatinin 0.70 - mg/dL Low No Jul 15 e 1.30 informati 2017 8:09 [Mass/vol on in AM ume] in source Serum or data Plasma Creatinin 50 - 200 ML/MIN Normal No Jul 15 e renal informati 2017 8:09 clearance on in AM source predicted data by Cockcroft -Gault formula Estimated >60 ML/MIN No REFERENCE Jul 15 informati RANGE: 2017 8:09 glomerula on in >60 AM r source ML/MIN/1. filtratio data 73 SQUARE n rate METERSIf (GF this patient is -A merican, then multiply theresult by 1.210. Globulin 1.3 - 3.2 gm/dL High No Jul 14 [Mass/vol informati 2016 8:09 ume] in on in AM Serum source data Glucose 74 - 106 mg/dL Normal No Jul 14 [Mass/vol informati 2016 8:09 ume] in on in AM Serum or source Plasma data Potassium 3.5 - 5.1 mmoL/L Normal No Jul 15 informati 2016 8:09 [Moles/vo on in AM lume] in source Serum or data Plasma Sodium 136 - 145 mmoL/L Normal No Jul 14 [Moles/vo informati 2016 8:09 lume] in on in AM Serum or source Plasma data Aspartate 15 - 37 U/L Normal No Jul 15 informati 2016 8:09 aminotran on in AM sferase source [Enzymati data c activity/ volume] in Serum or Plasma Alanine 12 - 78 U/L Normal No Jul 15 aminotran informati 2016 8:09 sferase on in AM [Enzymati source c data activity/ volume] in Serum or Plasma Protein 6.4 - 8.2 gm/dL Normal No Jul 14 [Mass/vol informati 2016 8:09 ume] in on in AM Serum or source Plasma data CBC W Auto Differential panel in Blood Observa Value Referen Units Interpr Notes Date tion ce etation Range Basophils 0 - 0.2 K/MM3 Normal No Jul 15 informati 2016 8:09 [#/volume on in AM ] in source Blood by data Automated count Basophils 0.1 - 2.0 % Normal No Jul 15 /100 informati 2016 8:09 leukocyte on in AM s in source Blood by data Automated count Eosinophi 0.0 - 0.4 K/mm3 High No Jul 15 ls informati 2016 8:09 [#/volume on in AM ] in source Blood by data Automated count Eosinophi 0.1 - % Normal No Jul 15 ls/100 12.0 informati 2016 8:09 leukocyte on in AM s in source Blood by data Automated count Granulocy 1.3 - 8.0 K/mm3 Normal No Jul 14 emilee informati 2017 8:09 [#/volume on in AM ] in source Blood by data Automated count Granulocy 37.0 - % Normal No Jul 15 emilee/100 80.0 informati 2016 8:09 leukocyte on in AM s in source Blood by data Automated count Hematocri 42.0 - % Normal No Jul 15 t [Volume 52.0 informati 2016 8:09 on in AM Fraction] source of Blood data Hemoglobi 14.1 - g/dL No Jul 15 n 18.0 informati informati 2016 8:09 [Mass/vol on in on in AM ume] in source source Blood data data Lymphocyt 0.7 - 4.5 K/mm3 Normal No Jul 15 es informati 2016 8:09 [#/volume on in AM ] in source Unspecifi data ed specimen by Automated count Lymphocyt 10 - 50 % Normal No Jul 15 es inform2016 8:09 [#/volume on in AM ] in source Unspecifi data ed specimen by Automated count Erythrocy 27 - 31.2 pg High No Jul 15 te mean informati 2016 8:09 corpuscul on in AM ar source hemoglobi data n [Entitic mass] Erythrocy 31.8 - g/dl Normal No Jul 15 te mean 35.4 informati 2016 8:09 corpuscul on in AM ar source hemoglobi data n concentra tion [Mass/vol ume] by Automated count Erythrocy 82.2 - fl Normal No Jul 15 te mean 97.8 informati 2016 8:09 corpuscul on in AM ar volume source [Entitic data volume] by Automated count Monocytes 0.1 - 1.0 K/mm3 Normal No Jul 15 informati 2016 8:09 [#/volume on in AM ] in source Blood by data Automated count Monocytes 1.7 - 9.3 % Normal No Jul 15 /100 informati 2017 8:09 leukocyte on in AM s in source Blood by data Automated count Platelet 7.4 - fl Normal No Jul 15 mean 10.4 informati 2016 8:09 volume on in AM [Entitic source volume] data in Blood by Automated count Platelets 142 - 424 K/mm3 Normal No Jul 14 informati 2016 8:09 [#/volume on in AM ] in source Blood data Erythrocy 4.6 - 6.2 M/mm3 Normal No Jul 14 emilee informati 2016 8:09 [#/volume on in AM ] in source Amniotic data fluid Erythrocy 11.5 - % Normal No Jul 15 te 17.5 informati 2016 8:09 distribut on in AM ion width source [Entitic data volume] by Automated count Leukocyte 4.8 - K/MM3 Normal No Jul 15 s 10.8 informati 2016 8:09 [#/volume on in AM ] in source Blood data Vancomycin [Mass/volume] in Serum or Plasma --trough Observa Value Referen Units Interpr Notes Date tion ce etation Range 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: PLEASE CALL PHARMACY WITH RESULT Vancomyci 5.0 [...] - 2.0 % Normal No Jun 28 /100 informati [...] No Jun 28 t [Volume 52.0 informati 2016 6:15 on in AM Fraction] source of Blood data Hemoglobi 14.1 - g/dL Low No Jun 28 n 18.0 informati 2017 6:15 [Mass/vol on in AM ume] in [...] Normal No Jun 26 e 1.30 informati 2016 6:30 [Mass/vol on in AM ume] in source Serum or data Plasma Creatinin 50 - 200 ML/MIN Normal No Jun 26 e renal informati 2016 6:30 clearance on in AM source predicted [...] 3.5 - 5.1 mmoL/L Normal No Jun 26 informati 2016 6:30 [Moles/vo on in AM lume] in [...] gm/dL Normal No Jun 25 [Mass/vol informati 2016 ume] in on in 11:40 AM Serum or source Plasma data Alkaline 46 - 116 U/L Normal No Jun 25 phosphata 2016 se on in 11:40 AM [Enzymati [...] ML/MIN Normal No Jun 25 e renal 2016 clearance on in 11:40 AM source predicted [...] 78 U/L Normal No Jun 25 aminotran 2016 sferase on in 11:40 AM [Enzymati source [...] 0 - 0.2 K/MM3 Normal No Jun 252016 [#/volume on in 11:40 AM ] in source Blood by data Automated count Basophils 0.1 - 2.0 % Normal No Jun 25 /100 2016 leukocyte on in 11:40 AM s in source Blood by data Automated count Eosinophi 0.0 - 0.4 K/mm3 Normal No Jun 25 ls informati 2016 [#/volume on in 11:40 AM ] in source Blood by data Automated count Eosinophi 0.1 - % Normal No Jun 25 ls/100 12.0 inform2016 leukocyte on in 11:40 AM s in source Blood by data Automated count Granulocy 1.3 - 8.0 K/mm3 High No Jun 25 emilee informati 2016 [#/volume on in 11:40 AM ] in source Blood by data Automated count Granulocy 37.0 - % Normal No Jun 25 emilee/100 80.0 informati 2016 leukocyte on in 11:40 [...] 4.5 K/mm3 Normal No Jun 25 es inform2016 [#/volume on in 11:40 AM ] in source Unspecifi data ed specimen by Automated count Lymphocyt 10 - 50 % Normal No Jun 25 es inform2016 [#/volume on in 11:40 AM ] in source Unspecifi data ed specimen by Automated count Erythrocy 27 - 31.2 pg High No Jun 25 te mean inform2016 corpuscul on in 11:40 AM ar source hemoglobi data n [Entitic mass] Erythrocy 31.8 - g/dl Normal No Jun 25 te mean 35.4 informati 2016 corpuscul on in 11:40 AM ar source hemoglobi data n concentra tion [Mass/vol ume] by Automated count Erythrocy 82.2 - fl Normal No Jun 25 te mean 97.8 informati 2016 corpuscul on in 11:40 AM ar volume source [Entitic data volume] by Automated count Monocytes 0.1 - 1.0 K/mm3 High No Jun 25 inform2016 [#/volume on in 11:40 AM ] in source Blood by data Automated count Monocytes 1.7 - 9.3 % Normal No Jun 25 / informati 2016 leukocyte on in 11:40 AM s in source Blood by data Automated count Platelet 7.4 - fl Normal No Jun 25 mean 10.4 2016 volume on in 11:40 AM [Entitic source volume] data in Blood by Automated count Platelets 142 - 424 K/mm3 Normal No Jun 25 inform2016 [#/volume on in 11:40 AM ] in source Blood data Erythrocy 4.6 - 6.2 M/mm3 Normal No Jun 25 emilee inform2016 [#/volume on in 11:40 AM ] in source Amniotic data fluid Erythrocy 11.5 - % Normal No Jun 25 te 17.5 2016 distribut on in 11:40 AM ion width source [Entitic data volume] by Automated count Leukocyte 4.8 - K/MM3 High No Jun 25 s 10.8 inform2016 [#/volume on in 11:40 AM ] in source Blood data
--- OUTSIDE RECORDS SUMMARY | 2017-07-15 10:16 | External Medical Summary Rpt ---
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
--- OUTSIDE RECORDS SUMMARY | 2017-07-15 10:16 | External Medical Summary Rpt ---
Demographics Preferred Language Latvian Marital Status Unknown Baptism Affiliation Unknown Race Unknown Ethnic Group Unknown Author Author [facility] Address Unknown Phone Immunization No patient found.
[2017-07-15 11:18] VITALS: BP 152/98
--- NOTE | 2017-07-15 11:40 | CONSULT NOTE ---
Pharmacokinetic Consult Date of consult: 07/15/17 Time of consult: 1135 Referring provider: DR. DALE Reason for consult: VANCOMYCIN AND GENTAMICIN DOSING Allergies: Coded Allergies: No Known Allergies (06/28/17) Home Medications: Reported Medications No Home Medications (NO HOME MEDICATIONS) 1 EACH XX ONCE Height (feet): 5 Height (inches): 9.00 Medical History: CAD? No Angina: No [place]: No Hypertension? Yes Hyperlipidemia? No CHF? No DVT? No PE? No COPD? No Asthma? No Anemia? No GERD? No Gastric ulcers? No GI Bleed? No Hernia? No Thyroid Problems? No Hypothyroidism? No CVA? No Seizures? No Diabetes? No Renal Insuffiency? No UTI? No Stones? No BPH? No GB Disease: No Nephritic Syndrome? No Asplenia? No Hepatitis? No Sickle Cell Disease? No Arthritis? No Migraines? No Cataracts? No Glaucoma? No MRSA? No HIV? No TB? No Anxiety? No Depression? No Cancer? No More? No Labs: Laboratory Tests 07/15/17 0809: Sodium 139, Potassium 4.1, Chloride 103, Carbon Dioxide 31, BUN 6 L, Creatinine 0.7 L, Estimated Creat Clear 142, Estimated GFR (MDRD) 117, Glucose 95, Calcium 8.8, Total Bilirubin 0.6, AST 20, ALT 35, Alkaline Phosphatase 77, Total Protein 7.6, Albumin 3.5, Globulin 4.1 H, Albumin/Globulin Ratio 0.9 L, WBC 6.0, RBC 5.22, Hgb 16.2, Hct 48.0, MCV 91.9, RDW 12.2, Plt Count 280, MPV 7.9, Gran % 44.8, Gran # 2.7, Lymphocytes % 36.2, Monocytes % 9.0, Eosinophils % 9.1, Basophils % 0.9, Lymphocytes # 2.2, Monocytes # 0.5, Eosinophils # 0.6 H, Basophils # 0.1, PUBS MCHC 34.0, MCH 31.3 H Problem List: 1. Cellulitis of leg, left 2. Abscess of left leg Plan: BASED ON PATIENT FACTORS, RECOMMEND VANCOMYCIN 1750 MG IV Q12H AND GENTAMICIN 420 MG IV Q24H. WILL OBTAIN 4 AND 12-HOUR POST INFUSION GENTAMICIN LEVELS. PHARMACY WILL FOLLOW DAILY AND ADJUST APPROPRIATE. at 1143
--- NOTE | 2017-07-15 12:29 | CONSULT NOTE ---
Standard Demographics Patient Demo Date of Consultation: 07/15/17 Referring Provider: Alicia Fisher MD Reason for Consultation: left CALF SWELLING AND TENDERNESS PRIMARY DIAGNOSIS: LEFT CALF ABSCESS Allergies: Coded Allergies: No Known Allergies (06/28/17) History of Present Illness Chief Complaint: LEFT calf swelling and tenderness History of Present Illness: 56-year-old white male whom I had been admitted to the hospital a couple weeks ago with a necrotizing soft tissue infection of the skin and subcutaneous tissues of the calf presumably due to alkali burn from concrete material. He underwent debridement on 06/25/17 and once again on 06/28/17. He completed a course of intravenous antibiotics and ultimately had a negative pressure wound therapy-type dressing applied. He had been managed as an outpatient with VAC dressing change every 3 days. Approximately 48 hours ago patient began developing some increasing tenderness and pain in the area. He underwent VAC dressing change yesterday. He presented to the emergency department this morning due to quite severe pain and swelling in the LEFT calf area. Surgery was contacted. Patient was admitted for inpatient management and surgical consultation. Past Medical History Denies: diabetes mellitus. Surgical History Previous Surgery?Y PELVIS LEFT ANKLE RIGHT SHOULDER URETHRA Allergies Coded Allergies: No Known Allergies (06/28/17) Medications: Reported Medications No Home Medications (NO HOME MEDICATIONS) 1 EACH XX ONCE Smoking Hx Tobacco: Yes Smoker: Current Some Day Smoker Type: Cigars Packs/day: N/A Are you/the child exposed to second-hand smoke: Yes Alcohol Alcohol: Yes Hx of Drug Use Drug Use? No Review of Systems Constitutional No: chills. Skin Positive for: swelling. Immune/allergy No: anaphalaxis. Eyes No: vision loss. ENT No: hearing loss. Respiratory No: shortness of air. Cardiovascular No: chest pain. GI No: abdomen. (male) No: hematuria. Musculoskeletal Positive for: extremity pain, extremity swelling. Heme No: bleeding. Endocrine No: cold intolerance. Neurological No: dizziness. Physical Exam Exam General appearance no acute distress, alert Respiratory clear to auscultation Cardiovascular normal heart sounds Findings/Data VAC dressing was removed. He has a good bed of healthy-appearing granulation tissue. There is minor reactive erythema with some minor dependent cellulitis in the posterior region of the wound. No evidence of any appreciable cellulitis. No evidence of any necrosis. Plan Plan: Plan to continue with intravenous antibiotics at this time. Discontinue VAC dressing. [place] daily dressing changes. Recommend Adaptic nonadhering-type dressing on the wound followed by wet-to-dry twice daily. at [id number]
[2017-07-15 13:33] VITALS: BP 152/98
[2017-07-15 16:00] VITALS: BP 138/80
[2017-07-15 20:09] VITALS: BP 135/88
[2017-07-15 20:30] VITALS: BP 135/88
[2017-07-16 04:01] VITALS: BP 141/80
--- NOTE | 2017-07-16 07:08 | PHARMACY CLINIC NOTE ---
Patient Demographics Patient Demographics Admission date: 07/15/17 Date: 07/16/17 Time: 0707 Allergies Coded Allergies: No Known Allergies (06/28/17) HEIGHT- FT: 5 IN: 9.00 K.648 VTE General Information Labs: Laboratory Tests 07/15 0809 Hematology Hgb (14.1 - 18.0 g/dL) 16.2 Hct (42.0 - 52.0 %) 48.0 Plt Count (142 - 424 K/mm3) 280 Disclaimer The following section includes nursing documentation that has been pulled in for pharmacy review. Patient's VTE score: 1 Patient's VTE Risk: VERY LOW RISK Clinical trial participant? No VTE prophylaxis NQ 0371 VTE prophylaxis ordered? Yes Type of prophylaxis/treatment: MAUREEN at 0707
[2017-07-16 08:00] VITALS: BP 132/77
[2017-07-16 08:31] VITALS: BP 132/77
--- NOTE | 2017-07-16 12:59 | CONSULT NOTE ---
Pharmacokinetic Consult Date of consult: 07/16/17 Time of consult: 1257 Referring provider: DR. DALE Reason for consult: GENTAMICIN DOSING Allergies: Coded Allergies: No Known Allergies (06/28/17) Home Medications: Reported Medications No Home Medications (NO HOME MEDICATIONS) 1 EACH XX ONCE Height (feet): 5 Height (inches): 9.00 Medical History: CAD? No Angina: No [place]: No Hypertension? Yes Hyperlipidemia? No CHF? No DVT? No PE? No COPD? No Asthma? No Anemia? No GERD? No Gastric ulcers? No GI Bleed? No Hernia? No Thyroid Problems? No Hypothyroidism? No CVA? No Seizures? No Diabetes? No Renal Insuffiency? No UTI? No Stones? No BPH? No GB Disease: No Nephritic Syndrome? No Asplenia? No Hepatitis? No Sickle Cell Disease? No Arthritis? No Migraines? No Cataracts? No Glaucoma? No MRSA? No HIV? No TB? No Anxiety? No Depression? No Cancer? No More? No Labs: Laboratory Tests 07/16/17 0205: Random Gentamicin 1.0 L 07/15/17 2124: Lactic Acid 0.4 07/15/17 1745: Random Gentamicin 4.9 Problem List: 1. Cellulitis of leg, left Plan: BASED ON PATIENT FACTORS AND GENTAMICIN LEVELS, RECOMMEND SLIGHTLY INCREASING DOSE TO 500 MG IV EVERY 24 HOURS. PHARMACY WILL CONTINUE TO MONITOR AND ADJUST DOSE APPROPRIATE. at 8000
--- NOTE | 2017-07-16 12:59 | CONSULT NOTE ---
Pharmacokinetic Consult Date of consult: 07/16/17 Time of consult: 1257 Referring provider: DR. DALE Reason for consult: GENTAMICIN DOSING Allergies: Coded Allergies: No Known Allergies (06/28/17) Home Medications: Reported Medications No Home Medications (NO HOME MEDICATIONS) 1 EACH XX ONCE Height (feet): 5 Height (inches): 9.00 Medical History: CAD? No Angina: No [place]: No Hypertension? Yes Hyperlipidemia? No CHF? No DVT? No PE? No COPD? No Asthma? No Anemia? No GERD? No Gastric ulcers? No GI Bleed? No Hernia? No Thyroid Problems? No Hypothyroidism? No CVA? No Seizures? No Diabetes? No Renal Insuffiency? No UTI? No Stones? No BPH? No GB Disease: No Nephritic Syndrome? No Asplenia? No Hepatitis? No Sickle Cell Disease? No Arthritis? No Migraines? No Cataracts? No Glaucoma? No MRSA? No HIV? No TB? No Anxiety? No Depression? No Cancer? No More? No Labs: Laboratory Tests 07/16/17 0205: Random Gentamicin 1.0 L 07/15/17 2124: Lactic Acid 0.4 07/15/17 1745: Random Gentamicin 4.9 Problem List: 1. Cellulitis of leg, left Plan: BASED ON PATIENT FACTORS AND GENTAMICIN LEVELS, RECOMMEND SLIGHTLY INCREASING DOSE TO 500 MG IV EVERY 24 HOURS. PHARMACY WILL CONTINUE TO MONITOR AND ADJUST DOSE APPROPRIATE. at 8548
--- NOTE | 2017-07-16 14:39 | SURGEON PROGRESS NOTE ---
Subjective data Subjective data: ROSA HURD is a 56 M .Patient denies complaint of nausea and vomitting.He reports his last pain level as 0 on a 0-10 pain scale. Patient feels better with less discomfort in his LEFT lower extremity. Assessment findings Assessment Exam General appearance: normal appearance, alert Comment: On examination there is less edema. Erythema, likely secondary to edema, has resolved. No evidence of any cellulitis. Patient plan Plan: Antibiotics Additional data: Should be reasonable to discharge on outpatient care. Given prior cultures would plan for once daily IV daptomycin as an outpatient and once daily dressing changes with Adaptic followed by wet-to-dry. We'll discontinue negative pressure wound therapy dressing at this time. at 7347
[2017-07-16 16:00] VITALS: BP 115/77
--- NOTE | 2017-07-16 17:26 | Discharge Summary Standard ---
Demographics: Admit date: 07/15/17 Chief complaint: wound change PRIMARY DIAGNOSIS: LEFT CALF ABSCESS Allergies: Coded Allergies: No Known Allergies (06/28/17) History of present illness: History of present illness: 56-year-old white male whom I had been admitted to the hospital a couple weeks ago with a necrotizing soft tissue infection of the skin and subcutaneous tissues of the calf presumably due to alkali burn from concrete material. He underwent debridement on 06/25/17 and once again on 06/28/17. He completed a course of intravenous antibiotics and ultimately had a negative pressure wound therapy-type dressing applied. He had been managed as an outpatient with VAC dressing change every 3 days. Approximately 48 hours ago patient began developing some increasing tenderness and pain in the area. He underwent VAC dressing change yesterday. He presented to the emergency department this morning due to quite severe pain and swelling in the LEFT calf area. Surgery was contacted. Patient was admitted for inpatient management and surgical consultation.above per allran Past medical history: Immunization HX DT/Tetanus > 10 YRS Pneumonia Refuses TB Test in last year No General CAD? No Angina: No [place]: No Hypertension? Yes Hyperlipidemia? No CHF? No DVT? No PE? No COPD? No Asthma? No Anemia? No GERD? No Gastric ulcers? No GI Bleed? No Hernia? No Thyroid Problems? No Hypothyroidism? No CVA? No Seizures? No Diabetes? No Renal Insuffiency? No UTI? No Stones? No BPH? No GB Disease: No Nephritic Syndrome? No Asplenia? No Hepatitis? No Sickle Cell Disease? No Arthritis? No Migraines? No Cataracts? No Glaucoma? No MRSA? No HIV? No TB? No Anxiety? No Depression? No Cancer? No More? No Past Surgical HX Previous Surgery?Y PELVIS LEFT ANKLE RIGHT SHOULDER URETHRA Current home meds: Reported Medications No Known Home Medications Discontinued Reported Medications No Home Medications (NO HOME MEDICATIONS) 1 EACH XX ONCE Social Hx: Smoking HX Tobacco Yes Type CIGARS Packs/day N/A Are you/the child exposed to second-hand smoke: Yes Alcohol Alcohol: Yes How much do you drink 3-4 ONCE A WEEK For how long Longer Than 5 Years When was your last drink Greater Than 72 Hours Ago Hx of Drug Use Drug Use? No Review of systems: Constitutional No: no symptoms reported. Respiratory No: no symptoms reported. Cardiovascular No no symptoms reported Gastrointestinal/Abdominal see HPI Genitourinary No: no symptoms reported. Musculoskeletal No: no symptoms reported. Skin see HPI. Neurological No: see HPI. Exam: Lab data for last 24 hours: Laboratory Tests 07/16/17 0205: Random Gentamicin 1.0 L 07/15/17 2124: Lactic Acid 0.4 07/15/17 1745: Random Gentamicin 4.9 Admission vital signs: 1ST Vital Signs Result Date Time Pulse Ox 96 07/15 0716 B/P 157/99 07/15 716 Temp 97.6 07/15 0716 Pulse 71 07/15 0716 Resp 18 07/15 0716 O2 Delivery ROOM AIR 07/15 1118 Exam General appearance: normal appearance, awake Eyes: normal exam ENT: normal exam Neck: normal inspection Cardiovascular: normal exam, regular rate & rhythm Respiratory: normal exam, clear to auscultation, good air movement, normal breath sounds ABD: normal exam, normal bowel sounds, soft Genitourinary: normal voiding & quantity Extremities: full range of motion, no peripheral edema, dressing removed. baseball size area to left calf edges ap, Musculoskeletal: normal exam Skin: warm Neuro: normal exam, alert, intact, oriented Hospital Course Hospital Course: surgey consult, iv antibotics and dressing change. impoved with antibotics will contiune iv antibotics and dressing changes as outpt Medications Medications: Discharge meds are as noted. Follow up Follow up in office in: 7 DAYS with: Tha Clemens MD Comment: rounded with jonas at [phone]
[2017-07-16 18:08] VITALS: BP 115/77
== END 2017-07-16 18:25 | disposition home or self-care (01) | DRG 918 ==
LOC: ER 07:05 → 2ND 09:58 → ER 09:58 → 2ND 10:48
PROVIDERS: Emergency Medicine
DX: T54.3X1A Toxic effect of corrosive alkalis and alkali-like substances, accidental (unintentional), initial encounter (principal); I10 Essential (primary) hypertension; T24.432A Corrosion of unspecified degree of left lower leg, initial encounter; B95.62 Methicillin resistant Staphylococcus aureus infection as the cause of diseases classified elsewhere
CPT/HCPCS: J2405; J3370

== ENCOUNTER → 2017-07-18 | Outpatient (CLI) | payer MEDICAID ==
[2017-07-18 13:20] VITALS: BP 137/94
[2017-07-18 13:55] VITALS: BP 114/93
== END ==
LOC: COP 13:00
DX: L02.416 Cutaneous abscess of left lower limb (principal); Z48.00 Encounter for change or removal of nonsurgical wound dressing

== ENCOUNTER 2017-07-19 12:00 | Outpatient (CLI) | payer SELFPAY ==
[2017-07-19 12:30] VITALS: BP 122/70
[2017-07-19 13:00] VITALS: BP 122/70
== END 2017-07-19 13:15 | disposition home or self-care (01) ==
LOC: COP 12:00
DX: L02.416 Cutaneous abscess of left lower limb (principal)
CPT/HCPCS: G0463; J0878

== ENCOUNTER 2017-07-20 14:51 | Outpatient (CLI) | payer SELFPAY ==
[2017-07-20 15:11] VITALS: BP 140/85
[2017-07-20 15:49] VITALS: BP 160/85
== END 2017-07-20 15:51 | disposition home or self-care (01) ==
LOC: COP 14:51
DX: L02.416 Cutaneous abscess of left lower limb (principal)
CPT/HCPCS: G0463; J0878

== ENCOUNTER 2017-07-21 09:47 | Outpatient (CLI) | payer SELFPAY ==
[2017-07-21 10:14] VITALS: BP 140/86
[2017-07-21 10:53] VITALS: BP 135/94
== END 2017-07-21 10:50 | disposition home or self-care (01) ==
LOC: COP 09:47
DX: L02.416 Cutaneous abscess of left lower limb (principal)
CPT/HCPCS: G0463; J0878

== ENCOUNTER 2017-07-22 15:30 | Outpatient (CLI) | payer SELFPAY ==
[2017-07-22 15:39] VITALS: BP 145/91
[2017-07-22 16:36] VITALS: BP 135/78
== END 2017-07-22 16:30 | disposition home or self-care (01) ==
LOC: COP 15:30
DX: L02.416 Cutaneous abscess of left lower limb (principal)
CPT/HCPCS: J0878

== ENCOUNTER → 2017-07-23 | Outpatient (CLI) | payer MEDICAID ==
[2017-07-23 11:00] VITALS: BP 132/70
[2017-07-23 11:30] VITALS: BP 128/70
== END ==
LOC: COP 11:30
DX: L02.416 Cutaneous abscess of left lower limb (principal); Z48.00 Encounter for change or removal of nonsurgical wound dressing

== ENCOUNTER 2017-07-24 11:15 | Outpatient (CLI) | payer SELFPAY ==
[2017-07-24] MEDS ORDERED: IBUPROFEN800 MG PO (11:21)
== END 2017-07-24 11:40 | disposition home or self-care (01) ==
LOC: COP 11:15
DX: L02.416 Cutaneous abscess of left lower limb (principal); Z48.00 Encounter for change or removal of nonsurgical wound dressing
CPT/HCPCS: G0463

== ENCOUNTER 2017-07-25 08:25 | Outpatient (CLI) | payer SELFPAY ==
[~2017-07-25 08:25] MED LIST changes: +IBUPROFEN800 MG PO
== END 2017-07-25 09:00 | disposition home or self-care (01) ==
LOC: COP 08:25
DX: L02.416 Cutaneous abscess of left lower limb (principal); Z48.00 Encounter for change or removal of nonsurgical wound dressing
CPT/HCPCS: G0463

== ENCOUNTER → 2017-07-26 | Outpatient (CLI) | payer SELFPAY | LOC: COP 09:00 | DX: L02.416 Cutaneous abscess of left lower limb (principal); Z48.00 Encounter for change or removal of nonsurgical wound dressing ==

== ENCOUNTER → 2017-07-27 | Outpatient (CLI) | payer SELFPAY ==
[2017-07-27 11:30] VITALS: BP 156/90
== END ==
LOC: COP 11:00
DX: L02.416 Cutaneous abscess of left lower limb (principal)
CPT/HCPCS: G0463

== ENCOUNTER → 2017-07-28 | Outpatient (CLI) | payer SELFPAY ==
[2017-07-28 12:56] VITALS: BP 139/89
== END ==
LOC: COP 12:00
DX: L02.416 Cutaneous abscess of left lower limb (principal)
CPT/HCPCS: G0463

== ENCOUNTER → 2017-07-30 | Outpatient (CLI) | payer MEDICAID | LOC: COP 10:00 | DX: L02.416 Cutaneous abscess of left lower limb (principal); Z48.00 Encounter for change or removal of nonsurgical wound dressing ==

== ENCOUNTER → 2017-08-28 | Outpatient (CLI) | payer MEDICAID | LOC: COP 08-26 12:00 | DX: L02.416 Cutaneous abscess of left lower limb (principal) | CPT/HCPCS: G0463 ==

== ENCOUNTER 2017-09-09 15:41 | Outpatient (CLI) | payer MEDICAID | END 2017-09-09 16:15 | disposition home or self-care (01) | LOC: COP 15:41 | DX: L02.416 Cutaneous abscess of left lower limb (principal); Z48.00 Encounter for change or removal of nonsurgical wound dressing | CPT/HCPCS: G0463 ==

== ENCOUNTER 2017-09-18 16:12 | Outpatient (CLI) | payer MEDICAID | END 2017-09-18 16:20 | disposition home or self-care (01) | LOC: COP 16:12 | DX: L02.416 Cutaneous abscess of left lower limb (principal); Z48.00 Encounter for change or removal of nonsurgical wound dressing | CPT/HCPCS: G0463 ==

== ENCOUNTER → 2017-10-21 | Outpatient (CLI) | payer MEDICAID | LOC: COP 16:42 | DX: L02.416 Cutaneous abscess of left lower limb (principal); Z48.00 Encounter for change or removal of nonsurgical wound dressing | CPT/HCPCS: G0463 ==

== ENCOUNTER → 2017-10-22 | Outpatient (CLI) | payer MEDICAID | LOC: COP 18:53 | DX: L02.416 Cutaneous abscess of left lower limb (principal) ==